=== PATIENT | male | born 1960 | race Two or more races ===

== ENCOUNTER 2020-06-27 10:31 | Inpatient (IN) | payer MEDICARE, OTHER ==
[2020-06-27] VITALS (9 sets, daily range): BP systolic 131–162; BP diastolic 79–100
[~2020-06-27] VITALS: Ht 188 cm; Wt 91.2 kg
--- NOTE | 2020-06-27 10:35 | NUR ---
ED Nurse Note: Pt brought in by ambulance from home d/t hyperglycemia with HI result. Pt is AOx4, calm and cooperative to care, appears to be generalized weak, per report, pt didn't take his insulin for 2 days. 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 Will continue to monitor.
[2020-06-27] MEDS ORDERED: Insulin Human Regular 100units/ml 3ml IV ONE (11:00)
--- NOTE | 2020-06-27 11:01 | Emergency Room Report ---
History of Present Illness General Chief Complaint: Abnormal Labs Source: Patient, EMS Present Illness HPI Patient is a 59-year-old male who presents for increased generalized weakness and diffuse body aches. Had reportedly been not taking his insulin for several days. He states that he had been feeling badly for 4 days. Reports having increased thirst. No vomiting. 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 COVID-19 Screening: Negative COVID-19 COVID-19 Testing Source: unk Patient History Past Medical History: see triage record Reviewed Nursing Documentation: PMH: Agreed; PSxH: Agreed Nursing Documentation-PMH Past Medical History: No History, Except For Hx Hypertension: Yes Hx Diabetes: Yes Review of Systems All Other Systems: negative except mentioned in HPI Physical Exam Vital Signs Date Time Temp Pulse Resp B/P (MAP) Pulse Ox O2 Delivery O2 Flow Rate FiO2 06/27/20 10:25 98.8 120 24 150/80 (103) 99 Room Air Sp02 EP Interpretation: reviewed, normal General Appearance: alert, moderate distress, obese, Chronically Ill Head: atraumatic ENT: normal ENT inspection, hearing grossly normal, normal voice Neck: normal inspection, full range of motion, supple, no bony tend Respiratory: normal inspection, lungs clear, normal breath sounds, no respiratory distress, no retraction, no wheezing Cardiovascular #1: regular rate, rhythm, no edema Gastrointestinal: normal inspection, normal bowel sounds, non tender, soft, no guarding, no hernia Genitourinary: no CVA tenderness Musculoskeletal: normal inspection, back normal, other - Left lower extremity foot ulcer Neurologic: alert, motor strength/tone normal, toy stuffer III-XII nml as tested, oriented x3, responsive, speech normal, normal inspection Psychiatric: normal inspection, judgement/insight normal, mood/affect normal Skin: other - left foot plantar ulcer Procedures Critical Care Time Critical Care Time Patient had a critical medical condition which was life threatening. Critical care time excluding separately billed procedures was 45 minutes. Medical Decision Making Diagnostic Impression: Primary Impression: DKA (diabetic ketoacidoses) Additional Impression: 2019 novel coronavirus detected ER Course Patient presented for generalized weakness and high blood sugar. Differential diagnosis included but was not limited to diabetic ketoacidosis, renal failure, electrolyte abnormality, myocardial infarction, coronavirus infection among others. Patient presented with elevated blood sugar and was reportedly noncompliant with insulin. Coronavirus testing was ordered and positive. Labs showed anion gap acidosis and significant hyperglycemia. Patient was started on IV fluids and IV insulin. He had some improvement with IV hydration. Patient was not given steroids due to hyperglycemia. Dr. Darrian Lara was contacted for inpa tient management and patient will be admitted to step down unit after improvement in acidosis. Labs Test 06/27/20 10:52 06/27/20 16:47 06/27/20 17:39 White Blood Count 9.9 K/UL (4.8-10.8) Red Blood Count 6.03 M/UL (4.70-6.10) Hemoglobin 15.8 G/DL (14.2-18.0) Hematocrit 49.3 % (42.0-52.0) Mean Corpuscular Volume 82 FL (80-99) Mean Corpuscular Hemoglobin 26.2 PG (27.0-31.0) Mean Corpuscular Hemoglobin Concent 32.0 G/DL (32.0-36.0) Red Cell Distribution Width 17.3 % (11.6-14.8) Platelet Count 293 K/UL (150-450) Mean Platelet Volume 8.1 FL (6.5-10.1) Neutrophils (%) (Auto) % (45.0-75.0) Lymphocytes (%) (Auto) % (20.0-45.0) Monocytes (%) (Auto) % (1.0-10.0) Eosinophils (%) (Auto) % (0.0-3.0) Basophils (%) (Auto) % (0.0-2.0) Differential Total Cells Counted 100 Neutrophils % (Manual) 84 % (45-75) Lymphocytes % (Manual) 9 % (20-45) Monocytes % (Manual) 7 % (1-10) Eosinophils % (Manual) 0 % (0-3) Basophils % (Manual) 0 % (0-2) Band Neutrophils 0 % (0-8) Platelet Estimate Adequate Platelet Morphology Normal Anisocytosis 1+ Total Bilirubin 0.5 MG/DL (0.2-1.0) Aspartate Amino Transf (AST/SGOT) 23 U/L (15-37) Alanine Aminotransferase (ALT/SGPT) 21 U/L (12-78) Alkaline Phosphatase 113 U/L (46-116) Troponin I 0.000 ng/mL (0.000-0.056) Total Protein 9.2 G/DL (6.4-8.2) Albumin 3.4 G/DL (3.4-5.0) Globulin 5.8 g/dL Albumin/Globulin Ratio 0.6 (1.0-2.7) Lipase 161 U/L (73-393) Thyroid Stimulating Hormone (TSH) 0.760 uiU/mL (0.358-3.740) Serum Alcohol < 3 mg/dL Acetone Level Positive-moderate (NEGATIVE) Urine Color Pale yellow Urine Appearance Slightly cloudy Urine pH 5 (4.5-8.0) Urine Specific [place] 1.015 (1.005-1.035) Urine Protein 2+ (NEGATIVE) Urine Glucose (UA) 4+ (NEGATIVE) Urine Ketones 4+ (NEGATIVE) Urine Blood 4+ (NEGATIVE) Urine Nitrite Negative (NEGATIVE) Urine Bilirubin Negative (NEGATIVE) Urine Urobilinogen Normal MG/DL (0.0-1.0) Urine Leukocyte Esterase Negative (NEGATIVE) Urine RBC 15-20 /HPF (0 - 0) Urine WBC 0-2 /HPF (0 - 0) Urine Squamous Epithelial Cells None /LPF (NONE/OCC) Urine Bacteria Moderate /HPF (NONE) Urine Coarse Granular Casts 2-4 /LPF (NONE) Sodium Level 143 MMOL/L (136-145) Potassium Level 4.0 MMOL/L (3.5-5.1) Chloride Level 106 MMOL/L (98-107) Carbon Dioxide Level 22 MMOL/L (21-32) Anion Gap 16 mmol/L (5-15) Blood Urea Nitrogen 58 mg/dL (7-18) Creatinine 2.7 MG/DL (0.55-1.30) Estimat Glomerular Filtration Rate 24.3 mL/min (>60) Glucose Level 304 MG/DL (74-106) Calcium Level 9.0 MG/DL (8.5-10.1) EKG Diagnostic Results Rate: tachycardiac Rhythm: NSR ST Segments: no acute changes Chest X-Ray Diagnostic Results Chest X-Ray Diagnostic Results : Chest X-Ray Ordered: Yes # of Views/Limited/Complete: 1 View Indication: Shortness of Breath EP Interpretation: No Impression: Other - Bilateral subsegmental atelectasis. Would also question an infectious infiltrate Last Vital Signs Date Time Temp Pulse Resp B/P (MAP) Pulse Ox O2 Delivery O2 Flow Rate FiO2 06/27/20 10:25 98.8 120 24 150/80 (103) 99 Room Air Status: improved Disposition: ADMITTED INPATIENT Condition: Critical Chan Watson MD Jun 27, 2020 11:01
--- NOTE | 2020-06-27 11:43 | NUR ---
ED Nurse Note: x-ray at bedside.
[2020-06-27 11:50] LABS: HEMATOCRIT 49.3 % (42.0-52.0); HEMOGLOBIN 15.8 G/DL (14.2-18.0); MEAN CORPUSCULAR VOLUME 82 FL (80-99); PLATELET COUNT 293 K/UL (150-450); RED BLOOD COUNT 6.03 M/UL (4.70-6.10); RED CELL DISTRIBUTION WIDTH 17.3 % (11.6-14.8); WHITE BLOOD COUNT 9.9 K/UL (4.8-10.8)
[2020-06-27 12:13] LABS: ALANINE AMINOTRANSFERASE 21 U/L (12-78); ALBUMIN 3.4 G/DL (3.4-5.0); ALBUMIN/GLOBULIN RATIO 0.6 (1.0-2.7); ALKALINE PHOSPHATASE 113 U/L (46-116); ANION GAP 29 mmol/L (5-15); ASPARTATE AMINO TRANSFERASE 23 U/L (15-37); BILIRUBIN,TOTAL 0.5 MG/DL (0.2-1.0); BLOOD UREA NITROGEN 60 mg/dL (7-18); CALCIUM 9.4 MG/DL (8.5-10.1); CARBON DIOXIDE 11 MMOL/L (21-32); CHLORIDE 94 MMOL/L (98-107); CREATININE 3.3 MG/DL (0.55-1.30); POTASSIUM 5.6 MMOL/L (3.5-5.1); SODIUM 134 MMOL/L (136-145)
[2020-06-27] MEDS ORDERED: Insulin Reg 100 units Premix 100 ML IV SCH (12:30)
[2020-06-27] MEDS ORDERED: Insulin Human Regular 100units/ml 3ml IV PRN ×2 (12:30)
[2020-06-27] MEDS: Insulin Reg 100 units Premix 100 ML IV SCH (12:38)
--- NOTE | 2020-06-27 13:28 | Diagnostic Imaging Report ---
EXAM: XR Chest, 1 View CLINICAL HISTORY: SOB TECHNIQUE: Frontal view of the chest. COMPARISON: No relevant prior studies available. FINDINGS: Lungs: Bilateral subsegmental atelectasis. Would also question an infectious infiltrate to the left mid lung. Pleural space: Unremarkable. No pneumothorax. Heart: Unremarkable. No cardiomegaly. Mediastinum: Unremarkable. Bones/joints: Degeneration of the acromioclavicular joints. IMPRESSION: Bilateral subsegmental atelectasis. Would also question an infectious infiltrate to the left mid lung.
[2020-06-27] MEDS ORDERED: Nitroglycerin Subl 0.4mg tab SL PRN (13:30)
[2020-06-27] MEDS ORDERED: Milk of Magnesia 30ml Ud ORAL PRN (13:30)
--- NOTE | 2020-06-27 13:39 | Consultation ---
Sophia Musa [employer] 06/27/20 1339: History of Present Illness General Date patient seen: Jun 27, 2020 Time patient seen: 12:50 Chief Complaint: Abnormal Labs Referring physician: Dr Lara Reason for Consultation: COVID 19 Present Illness HPI 59 years old male, with past medical history of hypertension, diabetes mellitus, presented to emergency department with generalized weakness and diffuse body aches. He was not taking insulin for few days. Patient reported symptoms for the last 4 days. He also reported increased thirst. He denied fevers or chills. He denied cough, shortness of breath or chest pain. Upon evaluation patient was afebrile, tachycardic with heart rate 120 , tachypneic with respiratory rate 24, pulse oximetry was 99% on room air. Laboratory work-up revealed no leukocytosis, stable hemoglobin , hematocrit and platelet count. Sodium 134, potassium 5.6. Anion gap 29. BUN 60, creatinine 2.3. Glucose 697. Troponin negative .EKG revealed sinus tachycardia no acute ischemic changes Stable LFT and lipase. TSH within normal limits. Serum alcohol negative. Rapid COVID-19 in ED was positive. Patient received insulin, IV fluids started on insulin drip and is currently waiting to be admitted . Pulmonology consult was requested to assist in management of this patient. PMH: DM, HTN Past surgery: left foot diabetic ulcer debridement Social hidstory: denies smoking, ETOH abuse, illicit drug use Family history: parent with diabetes Allergy: NKDA Medications: reviewed Allergies: Coded Allergies: No Known Allergies (Unverified , 06/27/20) Patient History History Provided By: Patient, Medical Record Healthcare decision maker Resuscitation status Full code Advanced Directive on File Review of Systems Constitutional: Reports: malaise, weakness Eye: Reports: no symptoms ENT: Reports: no symptoms Respiratory: Reports: no symptoms Cardiovascular: Reports: no symptoms Gastrointestinal: Reports: no symptoms Genitourinary: Reports: no symptoms Musculoskeletal: Reports: other - muscle ches Skin: Reports: other - diabetic ulcer L foot Psychiatric: Reports: no symptoms Neurological: Reports: no symptoms Endocrine: Reports: other - DM, requiring insulin Hematologic/Lymphatic: Reports: no symptoms Physical Exam General Appearance: no apparent distress, alert Lines, tubes and drains: peripheral HEENT: normocephalic, atraumatic, anicteric, mucous membranes moist Neck: non-tender, normal alignment, supple Respiratory/Chest: lungs clear, no respiratory distress, no accessory muscle use Cardiovascular/Chest: tachycardia - ST Abdomen: normal bowel sounds, non tender, soft Extremities: normal range of motion, no calf tenderness, normal capillary refill Skin Exam: other - L foot ulcer Neurologic: no motor/sensory deficits, alert, oriented x 3, responsive Musculoskeletal: normal muscle bulk Last 24 Hour Vital Signs Date Time Temp Pulse Resp B/P (MAP) Pulse Ox O2 Delivery O2 Flow Rate FiO2 06/27/20 10:45 98.8 24 150/80 99 Room Air 06/27/20 10:25 98.8 120 24 150/80 (103) 99 Room Air Laboratory Tests Test 06/27/20 10:52 White Blood Count 9.9 K/UL (4.8-10.8) Red Blood Count 6.03 M/UL (4.70-6.10) Hemoglobin 15.8 G/DL (14.2-18.0) Hematocrit 49.3 % (42.0-52.0) Mean Corpuscular Volume 82 FL (80-99) Mean Corpuscular Hemoglobin 26.2 PG (27.0-31.0) L Mean Corpuscular Hemoglobin Concent 32.0 G/DL (32.0-36.0) Red Cell Distribution Width 17.3 % (11.6-14.8) H Platelet Count 293 K/UL (150-450) Mean Platelet Volume 8.1 FL (6.5-10.1) Neutrophils (%) (Auto) % (45.0-75.0) Lymphocytes (%) (Auto) % (20.0-45.0) Monocytes (%) (Auto) % (1.0-10.0) Eosinophils (%) (Auto) % (0.0-3.0) Basophils (%) (Auto) % (0.0-2.0) Differential Total Cells Counted 100 Neutrophils % (Manual) 84 % (45-75) H Lymphocytes % (Manual) 9 % (20-45) L Monocytes % (Manual) 7 % (1-10) Eosinophils % (Manual) 0 % (0-3) Basophils % (Manual) 0 % (0-2) Band Neutrophils 0 % (0-8) Platelet Estimate Adequate Platelet Morphology Normal Anisocytosis 1+ Sodium Level 134 MMOL/L (136-145) L Potassium Level 5.6 MMOL/L (3.5-5.1) H Chloride Level 94 MMOL/L (98-107) L Carbon Dioxide Level 11 MMOL/L (21-32) L Anion Gap 29 mmol/L (5-15) H Blood Urea Nitrogen 60 mg/dL (7-18) H Creatinine 3.3 MG/DL (0.55-1.30) H Estimat Glomerular Filtration Rate 19.3 mL/min (>60) Glucose Level 697 MG/DL (74-106) *H Calcium Level 9.4 MG/DL (8.5-10.1) Total Bilirubin 0.5 MG/DL (0.2-1.0) Aspartate Amino Transf (AST/SGOT) 23 U/L (15-37) Alanine Aminotransferase (ALT/SGPT) 21 U/L (12-78) Alkaline Phosphatase 113 U/L (46-116) Troponin I 0.000 ng/mL (0.000-0.056) Total Protein 9.2 G/DL (6.4-8.2) H Albumin 3.4 G/DL (3.4-5.0) Globulin 5.8 g/dL Albumin/Globulin Ratio 0.6 (1.0-2.7) L Lipase 161 U/L (73-393) Thyroid Stimulating Hormone (TSH) 0.760 uiU/mL (0.358-3.740) Serum Alcohol < 3 mg/dL Acetone Level Positive-moderate (NEGATIVE) Microbiology Date/Time Source Procedure Growth Status 06/27/20 11:09 Nasopharynx SARS-CoV-2 RdRp Gene Assay - Final Complete Height (Feet): 6 Height (Inches): 2.00 Weight (Pounds): 220 Medications Current Medications Medications (Trade) Dose Ordered Sig/Td Route PRN Reason Start Time Stop Time Status Last Admin Dose Admin Dextrose (Dextrose 50%) 25 ml Q30M PRN IV HYPOGLYCEMIA 06/27/20 12:30 09/25/20 12:29 Dextrose (Dextrose 50%) 50 ml Q30M PRN IV HYPOGLYCEMIA 06/27/20 12:30 09/25/20 12:29 Insulin Human (Reg)/Sodium Chloride 100 ml @ 0 mls/hr Q24H IV 06/27/20 12:45 09/25/20 12:29 06/27/20 12:38 Insulin Human Regular (NovoLIN R) 5 units PRN PRN IV BS 200-299 06/27/20 12:30 09/25/20 12:29 Insulin Human Regular (NovoLIN R) 10 units PRN PRN IV BS=>300 06/27/20 12:30 09/25/20 12:29 Sodium Chloride 1,000 ml @ 999 mls/hr Q1H1M ONCE IV 06/27/20 12:30 06/27/20 13:30 06/27/20 12:39 Assessment/Plan Assessment/Plan: ASSESSMENT COVID 19 DKA Acute renal failure Hyperkalemia DM HTN PLAN OF CARE isolation Date of sx onset: 4 days ago Positive test: 06/27/20 O2 RA HFA prn DEX not indicated given on RA REM not a candidate given ARF a/c LMWH D dimer Trend CRP CXR no need for abx at this time aggressive hydration and BS management - per primary BS management with insulin gtt as per protocol , until anion gap closes hypoglycemia protocol diabetic diet and diabetic teaching HgA1c Monitor volumes and renal function Fup with consultants recs FC case discussed and evaluated by supervising physician Jules Burnett MD 06/27/202100: History of Present Illness General Chief Complaint: Abnormal Labs Present Illness Allergies: Coded Allergies: No Known Allergies (Unverified , 06/27/20) Sophia Musa NP Jun 27, 2020 13:39 Jules Burnett MD Jun 27, 2020 21:01
[2020-06-27] MEDS ORDERED: Albuterol 90mcg Inhaler 8gm INH PRN (13:45)
[2020-06-27] MEDS: Enoxaparin 100mg Inj SUBQ SCH (15:24)
[2020-06-27] MEDS: Aspirin Baby 81mg ORAL SCH (15:24)
[2020-06-27] MEDS: NovoLOG Insulin Flexpen SUBQ SCH ×2 (16:30→21:21)
--- NOTE | 2020-06-27 17:40 | NUR ---
ED Nurse Note: Redrawn blood for repeat BMP. Glucose on result was 304. Pt still on insulin drip at 4u/hr. will continue to monitor.
[2020-06-27 17:57] LABS: BILIRUBIN, URINE NEGATIVE (NEGATIVE); COLOR,URINE PALE YELLOW; GLUCOSE, URINE (UA) 4+ (NEGATIVE); KETONES,URINE 4+ (NEGATIVE); LEUKOCYTE ESTERASE ,URINE NEGATIVE (NEGATIVE); NITRITE,URINE NEGATIVE (NEGATIVE); PH,URINE 5 (4.5-8.0); PROTEIN,URINE 2+ (NEGATIVE); UROBILINOGEN,URINE NORMAL MG/DL (0.0-1.0)
[2020-06-27 18:00] LABS: CREATININE 2.7 MG/DL (0.55-1.30)
[2020-06-27 18:00] LABS: APPEARANCE,URINE SLIGHTLY CLOUDY
--- NOTE | 2020-06-27 19:00 | NUR ---
ED Nurse Note: received telephone order per dr garrett. 1. discontinue insulin drip 2. do sliding scale every 4 hours 3. administer maintenance fluid of NS 200mls/hr 4. kcl 10 mEq one time only 5. diabetic diet. 6. lantus/levemir. Ask pt first what meds does he takes at home. Noted and carried out. 6th telephone order still pending, plan of care given to BRIANNE Lima.
--- NOTE | 2020-06-27 19:11 | NUR ---
ED Nurse Note: hand off given to BRIANNE Lima for continuity of care.
--- NOTE | 2020-06-27 19:12 | NUR ---
ED Nurse Note: Received pt awake A&Ox3-4, and verbal. pt has no sob, fever, and pain at the moment. he is on room air satting 96-97%. His blod suger is 214 . pt is on a stable condition and we will keep monitoring the pt.
[2020-06-27] MEDS ORDERED: Levemir Flexpen SUBQ SCH (21:00)
[2020-06-27 21:06] LABS: CREATININE 2.6 MG/DL (0.55-1.30); POTASSIUM 4.5 MMOL/L (3.5-5.1)
--- NOTE | 2020-06-27 22:45 | NUR ---
ED Nurse Note: pt is on the bed in stable condition. No sob, fever, and pain at the moment. vitals are stable and he is sleeping.
--- NOTE | 2020-06-28 00:18 | Infectious Diseases Prog Note ---
Assessment/Plan Assessment/Plan Full consult dictated: A) covid-19 infection no hypoxia ? CAP vs atx - no fevers, ? left lung infiltrate dka, dm, htn, sophie P) no indication for covid-19 tx f/u chest x-ray monitor for hypoxia thank you Subjective Allergies: Coded Allergies: No Known Allergies (Unverified , 06/27/20) Objective Last 24 Hour Vital Signs Date Time Temp Pulse Resp B/P (MAP) Pulse Ox O2 Delivery O2 Flow Rate FiO2 06/27/20 21:41 98.8 06/27/20 17:45 98.8 110 17 141/98 100 Room Air 06/27/20 16:00 98.8 110 18 136/100 100 Room Air 06/27/20 15:00 98.8 109 19 131/97 99 Room Air 06/27/20 14:00 98.8 110 21 137/89 99 Room Air 06/27/20 13:26 98.8 113 24 162/91 99 Room Air 06/27/20 10:45 98.8 24 150/80 99 Room Air 06/27/20 10:25 98.8 120 24 150/80 (103) 99 Room Air Height (Feet): 6 Height (Inches): 2.00 Weight (Pounds): 220 Microbiology Date/Time Source Procedure Growth Status 06/27/20 11:09 Nasopharynx SARS-CoV-2 RdRp Gene Assay - Final Complete Laboratory Tests Test 06/27/20 10:52 06/27/20 16:47 06/27/20 17:39 06/27/20 20:35 White Blood Count 9.9 K/UL (4.8-10.8) Red Blood Count 6.03 M/UL (4.70-6.10) Hemoglobin 15.8 G/DL (14.2-18.0) Hematocrit 49.3 % (42.0-52.0) Mean Corpuscular Volume 82 FL (80-99) Mean Corpuscular Hemoglobin 26.2 PG (27.0-31.0) L Mean Corpuscular Hemoglobin Concent 32.0 G/DL (32.0-36.0) Red Cell Distribution Width 17.3 % (11.6-14.8) H Platelet Count 293 K/UL (150-450) Mean Platelet Volume 8.1 FL (6.5-10.1) Neutrophils (%) (Auto) % (45.0-75.0) Lymphocytes (%) (Auto) % (20.0-45.0) Monocytes (%) (Auto) % (1.0-10.0) Eosinophils (%) (Auto) % (0.0-3.0) Basophils (%) (Auto) % (0.0-2.0) Differential Total Cells Counted 100 Neutrophils % (Manual) 84 % (45-75) H Lymphocytes % (Manual) 9 % (20-45) L Monocytes % (Manual) 7 % (1-10) Eosinophils % (Manual) 0 % (0-3) Basophils % (Manual) 0 % (0-2) Band Neutrophils 0 % (0-8) Platelet Estimate Adequate Platelet Morphology Normal Anisocytosis 1+ Sodium Level 134 MMOL/L (136-145) L 143 MMOL/L (136-145) 144 MMOL/L (136-145) Potassium Level 5.6 MMOL/L (3.5-5.1) H 4.0 MMOL/L (3.5-5.1) 4.5 MMOL/L (3.5-5.1) Chloride Level 94 MMOL/L (98-107) L 106 MMOL/L (98-107) 108 MMOL/L (98-107) H Carbon Dioxide Level 11 MMOL/L (21-32) L 22 MMOL/L (21-32) 24 MMOL/L (21-32) Anion Gap 29 mmol/L (5-15) H 16 mmol/L (5-15) H 13 mmol/L (5-15) Blood Urea Nitrogen 60 mg/dL (7-18) H 58 mg/dL (7-18) H 50 mg/dL (7-18) H Creatinine 3.3 MG/DL (0.55-1.30) H 2.7 MG/DL (0.55-1.30) H 2.6 MG/DL (0.55-1.30) H Estimat Glomerular Filtration Rate 19.3 mL/min (>60) 24.3 mL/min (>60) 25.4 mL/min (>60) Glucose Level 697 MG/DL (74-106) *H 304 MG/DL (74-106) #H 242 MG/DL (74-106) H Calcium Level 9.4 MG/DL (8.5-10.1) 9.0 MG/DL (8.5-10.1) 9.0 MG/DL (8.5-10.1) Total Bilirubin 0.5 MG/DL (0.2-1.0) Aspartate Amino Transf (AST/SGOT) 23 U/L (15-37) Alanine Aminotransferase (ALT/SGPT) 21 U/L (12-78) Alkaline Phosphatase 113 U/L (46-116) Troponin I 0.000 ng/mL (0.000-0.056) Total Protein 9.2 G/DL (6.4-8.2) H Albumin 3.4 G/DL (3.4-5.0) Globulin 5.8 g/dL Albumin/Globulin Ratio 0.6 (1.0-2.7) L Lipase 161 U/L (73-393) Thyroid Stimulating Hormone (TSH) 0.760 uiU/mL (0.358-3.740) Serum Alcohol < 3 mg/dL Acetone Level Positive-moderate (NEGATIVE) Urine Color Pale yellow Urine Appearance Slightly cloudy Urine pH 5 (4.5-8.0) Urine Specific [place] 1.015 (1.005-1.035) Urine Protein 2+ (NEGATIVE) H Urine Glucose (UA) 4+ (NEGATIVE) H Urine Ketones 4+ (NEGATIVE) H Urine Blood 4+ (NEGATIVE) H Urine Nitrite Negative (NEGATIVE) Urine Bilirubin Negative (NEGATIVE) Urine Urobilinogen Normal MG/DL (0.0-1.0) Urine Leukocyte Esterase Negative (NEGATIVE) Urine RBC 15-20 /HPF (0 - 0) H Urine WBC 0-2 /HPF (0 - 0) Urine Squamous Epithelial Cells None /LPF (NONE/OCC) Urine Bacteria Moderate /HPF (NONE) H Urine Coarse Granular Casts 2-4 /LPF (NONE) H Current Medications Medications (Trade) Dose Ordered Sig/Td Route PRN Reason Start Time Stop Time Status Last Admin Dose Admin Acetaminophen (Tylenol) 650 mg Q4H PRN ORAL Mild Pain (Pain Scale 1-3) 06/27/20 13:30 07/27/20 13:29 06/27/20 21:11 Acetaminophen (Tylenol) 650 mg Q4H PRN ORAL fever 06/27/20 13:30 07/27/20 13:29 Albuterol Sulfate (Proventil MDI) 2 puff Q4H PRN INH Shortness of Breath 06/27/20 13:45 09/25/20 13:44 Aspirin (ASA) 81 mg DAILY ORAL 06/27/20 13:30 08/11/20 13:29 06/27/20 15:24 Dextrose (Dextrose 50%) 25 ml Q30M PRN IV HYPOGLYCEMIA 06/27/20 12:30 09/25/20 12:29 Dextrose (Dextrose 50%) 25 ml Q30M PRN IV Hypoglycemia 06/27/20 13:30 09/25/20 13:29 Dextrose (Dextrose 50%) 50 ml Q30M PRN IV HYPOGLYCEMIA 06/27/20 12:30 09/25/20 12:29 Dextrose (Dextrose 50%) 50 ml Q30M PRN IV Hypoglycemia 06/27/20 13:30 09/25/20 13:29 Enoxaparin Sodium (Lovenox) 100 mg Q24H SUBQ 06/27/20 14:30 09/25/20 14:29 06/27/20 15:24 Insulin Aspart (NovoLOG) BEFORE MEALS AND HS SUBQ 06/27/20 16:30 09/25/20 16:29 06/27/20 21:21 Insulin Detemir (Levemir) 25 units QHS SUBQ 06/27/20 21:00 09/25/20 20:59 06/27/20 21:22 Insulin Human (Reg)/Sodium Chloride 100 ml @ 0 mls/hr Q24H IV 06/27/20 12:45 09/25/20 12:29 06/27/20 12:38 Insulin Human Regular (NovoLIN R) 5 units PRN PRN IV BS 200-299 06/27/20 12:30 09/25/20 12:29 Insulin Human Regular (NovoLIN R) 10 units PRN PRN IV BS=>300 06/27/20 12:30 09/25/20 12:29 Magnesium Hydroxide (Mom) 30 ml HSPRN PRN ORAL Constipation 06/27/20 13:30 07/27/20 13:29 Nitroglycerin (Ntg) 0.4 mg Q5M PRN SL Prn Chest Pain 06/27/20 13:30 07/27/20 13:29 Ondansetron HCl (Zofran) 4 mg Q6H PRN IVP Nausea & Vomiting 06/27/20 13:30 07/27/20 13:29 06/27/20 21:10 Sodium Chloride 1,000 ml @ 200 mls/hr Q5H IVLG 06/27/20 14:30 07/27/20 14:29 06/27/20 20:21 Sangeetha Roger MD Jun 28, 2020 00:18
--- NOTE | 2020-06-28 00:25 | NUR ---
ED Nurse Note: pt is on the bed no sob, vitals are stable but he is complaning of pain. I asked EDMD to order him pain medication. ordered morphine 4mg
[2020-06-28] MEDS ORDERED: Morphine Sulfate 4mg/ml Inj (IV USE ONLY) ONE (00:57)
[2020-06-28] MEDS ORDERED: Morphine Sulfate 4mg/ml Inj (IV USE ONLY) IVP ONE ×2 (01:00→09:00)
[2020-06-28 01:26] VITALS: BP 141/72
--- NOTE | 2020-06-28 01:36 | NUR ---
ED Nurse Note: pt is sleeping comfortably. Vitals are stable and no sob. We will keep monitoring the pt
--- NOTE | 2020-06-28 02:29 | Consultation ---
DATE OF CONSULTATION: 06/27/2020 INFECTIOUS DISEASES CONSULTATION CONSULTING PHYSICIAN: Sangeetha Roger MD. ATTENDING PHYSICIAN: Darrian Lara MD. REFERRING PHYSICIAN: Darrian Lara MD. REASON FOR CONSULTATION: COVID-19 infection, possible community-acquired pneumonia, respiratory infection bronchitis. REASON FOR ADMISSION: DKA, elevated blood sugars, increased thirst. HISTORY OF PRESENT ILLNESS: This is a 59-year-old male who comes into [facility]. The patient was noted to have increasing thirst. The patient had high blood sugar and was in DKA. The patient also had weakness and body aches, questionable cough, upper respiratory infection. The patient's chest x-ray shows questionable infiltrate; however, this likely is atelectasis. His saturations are stable. His COVID testing by nasopharyngeal molecular testing was positive. Because of the COVID infection, Infectious diseases consultation requested. The patient currently is not hypoxic, has no fevers. The patient has had symptoms for several days. The patient is being treated for diabetic ketoacidosis. MAR was noted. Orders were noted. Notes were reviewed. Case discussed with the RN in the ER. The patient was seen in the emergency room. REVIEW OF SYSTEMS: As discussed, he had body aches, generalized fatigue, weakness, increasing thirst. He has no fever, chills, night sweats.HEAD AND NECK: No headache, neck stiffness, thrush or dysphagia. CARDIAC: No chest pain or palpitations. GASTROINTESTINAL: No nausea, vomiting, abdominal pain, or diarrhea. GENITOURINARY: No dysuria or frequency. PULMONARY: He had mild cough and congestion. No hemoptysis or secretions. SKIN: No rash. EXTREMITIES: No pain. No joint pain or leg pain. NEUROLOGIC: No seizure activity. PAST MEDICAL HISTORY: The patient's past medical history includes the following. The patient has a past medical history of hypertension and diabetes. ALLERGIES: He has no known drug allergies. No antibiotic allergies. SOCIAL HISTORY: Negative for smoking, alcohol, or drug abuse. FAMILY HISTORY: Noncontributory. Negative for tuberculosis or cancer. MEDICATIONS: Upon reviewing the MAR, the patient is on the following medications. He is on insulin, enoxaparin, albuterol, Zofran, magnesium hydroxide, acetaminophen, nitroglycerin. Outside medications were noted and reconciliated. PHYSICAL EXAMINATION: VITAL SIGNS: Temperature is 98.8, pulse rate 110, respiratory rate 17, blood pressure 141/98, saturating 100% on room air. GENERAL: He is currently in ICU. He is in COVID isolation. He is in no acute distress. No O2 requirements. Saturations are stable. Respiratory is stable. HEAD AND NECK: Oral exam, no thrush. Eye exam, no icterus. Normocephalic. Neck is supple. No JVD. HEART: Regular. No gallop or murmur. ABDOMEN: Soft. Positive bowel sounds. Nontender. LUNGS: Fairly clear bilaterally. He might have few bilateral rhonchi on exam. No rales. No respiratory distress. SKIN: No rash. MUSCULOSKELETAL: No effusion. Legs are without cellulitis. PERIPHERAL VASCULAR: No cyanosis or gangrene. GENITOURINARY: No Giles. LINE SITES: Without phlebitis. NEUROLOGIC: Intact and nonfocal. Alert and oriented. LABORATORY DATA: White count 9.9, hemoglobin 15.8. Creatinine 2.6, glucose 697. Sodium 144 , potassium was 5.6. UA has only 0 to 2 white cells, leukocyte esterase negative. COVID nasopharyngeal testing was positive by molecular testing. Chest x-ray shows atelectasis, questionable infiltrate in the left lung. ASSESSMENT AND PLAN: 1. COVID-19 infection. The patient currently does not have any hypoxia. No indication for Remdesivir or steroids. Chest x-ray with questionable left lung infiltrate; however, patient has no fevers or hypoxia. At this time, no indication for antibiotics for bacterial community-acquired pneumonia. Questionable upper respiratory infection, bronchitis; however, respiratory status is stable. At this time, no indication for Remdesivir or steroids for COVID infection. Again, no antibiotics. We will check followup chest x-ray to make sure the patient does not have any community-acquired pneumonia and monitor for hypoxia. Continue COVID isolation for COVID infection. 2. Acute kidney injury, elevated creatinine. 3. Diabetes. 4. Hypertension. 5. Diabetic ketoacidosis. 6. Anemia. 7. Diabetes and hypertension treatment per primary team. 8. Blood sugar treatment per primary team. 9. IV fluids. 10. The patient has no known drug allergies. 11. Social history is negative. 12. Family history is noncontributory. 13. MAR was noted. 14. Case discussed with RN. 15. The patient seen in ER. Sangeetha Roger M.D. DR: Lalo JOB#: [id number] CC:
--- NOTE | 2020-06-28 03:40 | NUR ---
ED Nurse Note: pt is on the bed sleeping, vitals are stable and all needs are met. we will keep monitoring the pt.
[2020-06-28] MEDS: NovoLOG Insulin Flexpen SUBQ SCH ×5 (06:25→21:06)
--- NOTE | 2020-06-28 07:16 | NUR ---
HAND-OFF: Report given to BRIANNE Joe.
[2020-06-28 08:10] VITALS: BP 174/104
--- NOTE | 2020-06-28 08:11 | NUR ---
ED Nurse Note:pt. is A/Ox1 this morning, tahycardic, no signs of distress or pain, continue to monitor till admit bed is available
--- NOTE | 2020-06-28 08:31 | NUR ---
ED Nurse Note:blood sent to labs and accucheck done
[2020-06-28] MEDS: Aspirin Baby 81mg ORAL SCH (09:07)
[2020-06-28 09:28] LABS: HEMATOCRIT 44.3 % (42.0-52.0); HEMOGLOBIN 14.6 G/DL (14.2-18.0); MEAN CORPUSCULAR VOLUME 79 FL (80-99); PLATELET COUNT 233 K/UL (150-450); RED BLOOD COUNT 5.58 M/UL (4.70-6.10); RED CELL DISTRIBUTION WIDTH 16.1 % (11.6-14.8); WHITE BLOOD COUNT 11.2 K/UL (4.8-10.8)
[2020-06-28 10:05] LABS: ALANINE AMINOTRANSFERASE 16 U/L (12-78); ALBUMIN 2.8 G/DL (3.4-5.0); ALBUMIN/GLOBULIN RATIO 0.6 (1.0-2.7); ALKALINE PHOSPHATASE 87 U/L (46-116); ANION GAP 14 mmol/L (5-15); ASPARTATE AMINO TRANSFERASE 31 U/L (15-37); BILIRUBIN,TOTAL 0.6 MG/DL (0.2-1.0); BLOOD UREA NITROGEN 40 mg/dL (7-18); CALCIUM 8.5 MG/DL (8.5-10.1); CARBON DIOXIDE 22 MMOL/L (21-32); CHLORIDE 113 MMOL/L (98-107); CREATINE KINASE 277 U/L (26-308); CREATININE 2.4 MG/DL (0.55-1.30); PHOSPHORUS 1.9 MG/DL (2.5-4.9); SODIUM 148 MMOL/L (136-145)
[2020-06-28] MEDS: Insulin Reg 100 units Premix 100 ML IV SCH (10:16)
--- NOTE | 2020-06-28 11:29 | Pulmonology Progress Note ---
Subjective Allergies: Coded Allergies: No Known Allergies (Unverified , 06/27/20) Subjective still in ED anion gap closed, s/p insulin gtt mild leukocytosis, no fevers on RA no resp distress/symptoms + tachy ST on monitor Objective Last 24 Hour Vital Signs Date Time Temp Pulse Resp B/P (MAP) Pulse Ox O2 Delivery O2 Flow Rate FiO2 06/28/20 09:38 97.9 06/28/20 08:10 97.9 118 19 174/104 95 Room Air 06/28/20 01:28 97.9 06/28/20 01:26 97.9 119 20 141/72 95 Room Air 06/27/20 23:45 98.3 112 19 136/79 96 Room Air 06/27/20 21:56 98.5 109 18 142/86 95 Room Air 06/27/20 21:41 98.8 06/27/20 19:45 98.6 115 18 136/96 96 Room Air 06/27/20 17:45 98.8 110 17 141/98 100 Room Air 06/27/20 16:00 98.8 110 18 136/100 100 Room Air 06/27/20 15:00 98.8 109 19 131/97 99 Room Air 06/27/20 14:00 98.8 110 21 137/89 99 Room Air 06/27/20 13:26 98.8 113 24 162/91 99 Room Air Objective General Appearance: no apparent distress, alert Lines, tubes and drains: peripheral HEENT: normocephalic, atraumatic, anicteric, mucous membranes moist Neck: non-tender, normal alignment, supple Respiratory/Chest: lungs clear, no respiratory distress, no accessory muscle use Cardiovascular/Chest: tachycardia - ST Abdomen: normal bowel sounds, non tender, soft Extremities: normal range of motion, no calf tenderness, normal capillary refill Skin Exam: other - L foot ulcer Neurologic: no motor/sensory deficits, alert, oriented x 3, responsive Musculoskeletal: normal muscle bulk Microbiology Date/Time Source Procedure Growth Status 06/27/20 16:47 Urine,Clean Catch Urine Culture - Preliminary NO GROWTH Resulted 06/27/20 11:09 Nasopharynx SARS-CoV-2 RdRp Gene Assay - Final Complete Laboratory Tests 06/27/20 16:47: Urine Color Pale yellow, Urine Appearance Slightly cloudy, Urine pH 5, Urine Specific [place] 1.015, Urine Protein 2+H, Urine Glucose (UA) 4+H, Urine Ketones 4+H, Urine Blood 4+H, Urine Nitrite Negative, Urine Bilirubin Negative, Urine Urobilinogen Normal, Urine Leukocyte Esterase Negative, Urine RBC 15-20H, Urine WBC 0-2, Urine Squamous Epithelial Cells None, Urine Bacteria ModerateH, Urine Coarse Granular Casts 2-4H 06/27/20 17:39: Sodium Level 143, Potassium Level 4.0, Chloride Level 106, Carbon Dioxide Level 22, Anion Gap 16H, Blood Urea Nitrogen 58H, Creatinine 2.7H, Estimat Glomerular Filtration Rate 24.3, Glucose Level 304#H, Calcium Level 9.0 06/27/20 20:35: Sodium Level 144, Potassium Level 4.5, Chloride Level 108H, Carbon Dioxide Level 24, Anion Gap 13, Blood Urea Nitrogen 50H, Creatinine 2.6H, Estimat Glomerular Filtration Rate 25.4, Glucose Level 242H, Calcium Level 9.0 06/28/20 08:20: Sodium Level 148H, Potassium Level 5.0, Chloride Level 113H, Carbon Dioxide Level 22, Anion Gap 14, Blood Urea Nitrogen 40H, Creatinine 2.4H, Estimat Glomerular Filtration Rate 27.8, Glucose Level 323H, Calcium Level 8.5, White Blood Count 11.2H, Red Blood Count 5.58, Hemoglobin 14.6, Hematocrit 44.3, Mean Corpuscular Volume 79L, Mean Corpuscular Hemoglobin 26.1L, Mean Corpuscular Hemoglobin Concent 32.8, Red Cell Distribution Width 16.1H, Platelet Count 233, Mean Platelet Volume 7.9, Neutrophils (%) (Auto) , Lymphocytes (%) (Auto) , Monocytes (%) (Auto) , Eosinophils (%) (Auto) , Basophils (%) (Auto) , Neutrophils % (Manual) [Pending], Lymphocytes % (Manual) [Pending], Platelet Estimate [Pending], Platelet Morphology [Pending], D-Dimer 0.82H, Hemoglobin A1c 10.7H, Phosphorus Level 1.9L, Magnesium Level 2.6H, Total Bilirubin 0.6, Aspartate Amino Transf (AST/SGOT) 31, Alanine Aminotransferase (ALT/SGPT) 16, Alkaline Phosphatase 87, Total Creatine Kinase 277, Troponin I 0.062H, C-Re active Protein, Quantitative [Pending], Total Protein 7.8, Albumin 2.8L, Globulin 5.0, Albumin/Globulin Ratio 0.6L, Thyroid Stimulating Hormone (TSH) 0.554 06/28/20 11:12: POC Whole Blood Glucose [Pending] Current Medications Medications (Trade) Dose Ordered Sig/Td Route PRN Reason Start Time Stop Time Status Last Admin Dose Admin Acetaminophen (Tylenol) 650 mg Q4H PRN ORAL Mild Pain (Pain Scale 1-3) 06/27/20 13:30 07/27/20 13:29 06/27/20 21:11 Acetaminophen (Tylenol) 650 mg Q4H PRN ORAL fever 06/27/20 13:30 07/27/20 13:29 Albuterol Sulfate (Proventil MDI) 2 puff Q4H PRN INH Shortness of Breath 06/27/20 13:45 09/25/20 13:44 Aspirin (ASA) 81 mg DAILY ORAL 06/27/20 13:30 08/11/20 13:29 06/28/20 09:07 Dextrose (Dextrose 50%) 25 ml Q30M PRN IV HYPOGLYCEMIA 06/27/20 12:30 09/25/20 12:29 Dextrose (Dextrose 50%) 25 ml Q30M PRN IV Hypoglycemia 06/27/20 13:30 09/25/20 13:29 Dextrose (Dextrose 50%) 50 ml Q30M PRN IV HYPOGLYCEMIA 06/27/20 12:30 09/25/20 12:29 Dextrose (Dextrose 50%) 50 ml Q30M PRN IV Hypoglycemia 06/27/20 13:30 09/25/20 13:29 Enoxaparin Sodium (Lovenox) 100 mg Q24H SUBQ 06/27/20 14:30 09/25/20 14:29 06/27/20 15:24 Insulin Aspart (NovoLOG) BEFORE MEALS AND HS SUBQ 06/27/20 16:30 09/25/20 16:29 06/28/20 06:25 Insulin Detemir (Levemir) 25 units QHS SUBQ 06/27/20 21:00 09/25/20 20:59 06/27/20 21:22 Insulin Human (Reg)/Sodium Chloride 100 ml @ 0 mls/hr Q24H IV 06/27/20 12:45 09/25/20 12:29 06/27/20 12:38 Insulin Human Regular (NovoLIN R) 5 units PRN PRN IV BS 200-299 06/27/20 12:30 09/25/20 12:29 Insulin Human Regular (NovoLIN R) 10 units PRN PRN IV BS=>300 06/27/20 12:30 09/25/20 12:29 Magnesium Hydroxide (Mom) 30 ml HSPRN PRN ORAL Constipation 06/27/20 13:30 07/27/20 13:29 Nitroglycerin (Ntg) 0.4 mg Q5M PRN SL Prn Chest Pain 06/27/20 13:30 07/27/20 13:29 Ondansetron HCl (Zofran) 4 mg Q6H PRN IVP Nausea & Vomiting 06/27/20 13:30 07/27/20 13:29 06/27/20 21:10 Sodium Chloride 1,000 ml @ 200 mls/hr Q5H IVLG 06/27/20 14:30 07/27/20 14:29 06/28/20 06:26 Assessment/Plan Assessment/Plan ASSESSMENT COVID 19 DKA Acute renal failure Hyperkalemia DM HTN Elevated troponin, likely troponin leak 2 ARF PLAN OF CARE still in ED awaiting fro tele bed isolation Date of sx onset: 4 days ago Positive test: 06/27/20 O2 RA HFA prn DEX not indicated given on RA REM not a candidate given ARF a/c LMWH D dimer Trend CRP CXR 06/27 Bilateral subsegmental atelectasis CXR this am pending no need for abx at this time aggressive hydration and BS management - per primary anion gap closed ; off insulin gtt BS management eper primary HgA1c -10.7, not at goal hypoglycemia protocol diabetic diet and diabetic teaching creat trending down, hyper K resolved 2 nd troponin mildly elevated likely troponin leak 2 to ARF monitor volumes and renal function fup with consultants recs FC case discussed and evaluated by supervising physician Sophia Musa NP Jun 28, 2020 11:29 Jules Burnett MD Jun 28, 2020 23:02
[2020-06-28 11:37] VITALS: BP 150/91
--- NOTE | 2020-06-28 12:37 | NUR ---
ED Nurse Note:called report to tele- given to BRIANNE Davidson, pt. is stable for transfer
--- NOTE | 2020-06-28 14:01 | Diagnostic Imaging Report ---
Indication: Cough Technique: One view of the chest Comparison: 06/27/2020 Findings: Optimal exam currently; current exam also less heavily exposed. There are increased streaky peribronchovascular infiltrates in the left lung. There are also some atelectatic bands in the left midlung periphery which were evident previously. There are questionably streaky infiltrates in the right lung, as well as some atelectasis. This is probably unchanged allowing for differences in degree of inspiration and exposure technique Impression: Increasing left peripheral infiltrates, likely reflects increasing pneumonia. There are questionably minimal infiltrates on the right as well as some atelectasis
[2020-06-28 16:00] VITALS: BP 174/96
[2020-06-28] MEDS: Enoxaparin 100mg Inj SUBQ SCH (16:51)
--- NOTE | 2020-06-28 17:00 | History and Physical Report ---
DATE OF ADMISSION: 06/27/2020 CHIEF COMPLAINT AND REASON FOR HOSPITALIZATION: The patient admitted with diabetic ketoacidosis and positive tests for COVID-19. HISTORY OF PRESENT ILLNESS: The patient is a poor historian. On my exam, he is very drowsy and cannot give any articulate history and he has been this way all day. He presented with diabetic ketoacidosis and apparently has not been taking his insulin for several days and feeling weak. The test for COVID-19 was verbally reported as positive over the phone last night and his chest x-ray on admission showed bilateral subsegmental atelectasis, would also question infectious infiltrate in the left middle lung. I am unable to get any further past medical history. He was given large amount of fluids, insulin drip in the emergency room and his sugars improved as did his acidosis and now he is transferred to the telemetry floor. Prior to admission medications are unavailable at this time. PHYSICAL EXAMINATION: GENERAL: The patient is lying in bed, supine. VITAL SIGNS: O2 saturation 96% on room air, temperature 97.9, pulse 118, respiratory rate 19, blood pressure 150/91. HEAD, EYES, EARS, NOSE, THROAT: Oral mucosa slightly dry. Sclerae are nonicteric. NECK: No adenopathy. LUNGS: Clear. HEART: Rhythm is regular and tachycardic. ABDOMEN: Soft without organomegaly. EXTREMITIES: No edema. NEUROLOGIC: He is arousable but confused, disoriented. No apparent focal weakness. PERTINENT LABORATORY DATA: On admission white count 9.9, hemoglobin 15.8. Sodium 134, potassium 5.6, chloride 94, CO2 of 11, BUN 60, creatinine 3.3, glucose 697. . The most recent chemistry shows sodium 148, potassium 5, BUN 40, creatinine 2.4, glucose 323. Hemoglobin A1c 10.7. Phosphorus low at 1.9. Troponin 0.062. IMPRESSION: 1. Diabetic ketoacidosis, improving 2. Dehydration. 3. COVID-19 pneumonia. 4. Elevated troponin, likely demand ischemia. 5. Incomplete database. PLAN: Hydration. Diabetic management. We will give him anti-ischemic therapy. Watch his electrolytes closely. I think at this time, he can be started on dexamethasone and watch closely. Darrian Lara M.D. DR: Javy JOB#: [id number] CC:
--- NOTE | 2020-06-28 17:19 | NUR ---
NURSE NOTES: sliding scale insulin given, held additional insulin because pt refused to eat.
--- NOTE | 2020-06-28 19:00 | NUR ---
NURSE NOTES: received report from Vladimir DECKER. Pt is sleeping in bed in semi- alonso's position. Pt is alert oriented x3, no SOB noted, o2 sat 94%. No any pain noted. Pt Right AC g20, patient flushed running 150ml/hr NS in No bleeding or erythema noted. Pt is noted to have diabetic ulcers on bottom of left foot and on medial right 1st toe. Continue to plan of care, call light within reach.
[2020-06-28 20:00] VITALS: BP 136/93
--- NOTE | 2020-06-28 20:25 | NUR ---
NURSE HAND-OFF REPORT: Important Events on Shift:[] pt is hypertensive, dr is aware. pt refused to eat so insulin is med. Patient Status: [] full code Diet: [] regular Pending Orders: [] Pending Results/Labs:[] Pending MD notification:[] Latest Vital Signs: Temperature 99.4 , Pulse 131 , B/P 174 /96 , Respiratory Rate 22 , O2 SAT 99 , Room Air, O2 Flow Rate . Vital Sign Comment: [] EKG Rhythm: Sinus Tachycardia Rhythm change?: N MD Notified?: - MD Response: Latest Estrada Fall Score: 55 Fall Risk: High Risk Safety Measures: Call light Within Reach, Bed Alarm Zone 1, Side Rails Side Rails x2, Bed position Low and Locked. Fall Precautions: Yellow Socks Yellow Gown Door Sign Patient Fall Education Report given to [].luis DECKER
[2020-06-28] MEDS ORDERED: Levemir Flexpen SUBQ SCH (21:00)
[2020-06-29] VITALS: BP 130/89
[2020-06-29 04:00] VITALS: BP 134/92
[2020-06-29] MEDS: NovoLOG Insulin Flexpen SUBQ SCH ×7 (06:24→22:11)
--- NOTE | 2020-06-29 06:29 | Consultation ---
DATE OF CONSULTATION: 06/28/2020 CARDIOLOGY CONSULTATION REQUESTING PHYSICIAN: Darrian Lara M.D. REASON FOR CONSULTATION: Elevated troponin level in the setting of COVID-19 pneumonia. HISTORY OF PRESENT ILLNESS: This 59-year-old male presented to the hospital yesterday with DKA and lethargy. He has been weak for several days and not taking his insulin. He has had a positive COVID-19 swab reported. I have been asked to assess his cardiovascular status addressing an elevated troponin level. PAST MEDICAL HISTORY: Insulin-requiring diabetes mellitus. MEDICATIONS: None known. FAMILY HISTORY: Not obtainable. SOCIAL HISTORY: Not known at this time. PHYSICAL EXAMINATION: VITAL SIGNS: Afebrile. Blood pressure 140/79, heart rate 118, respiratory rate 22, and oxygen saturation 96%. NECK: Supple. Mucous membranes dry. LUNGS: Clear. CARDIAC: Regular. Normal S1, S2 with rapid heart rate. No murmur. ABDOMEN: Soft. EXTREMITIES: No edema. LABORATORY DATA: Troponin 0.062. Sodium 134, potassium 5.6, BUN 40, creatinine 2.4, and bicarb 11. Chest x-ray with bilateral infiltrates. EKG with sinus tachycardia and nonspecific ST changes. ASSESSMENT: 1. COVID-19 pneumonia. 2. Hypovolemia. 3. Dehydration. 4. Acute coronary insufficiency and likely demand ischemia. 5. Diabetic ketoacidosis. PLAN: 1. Hydration. 2. Insulin titration by IV route. 3. Anticoagulation and steroid therapies. 4. Follow up troponin level. 5. Consider initiation of beta-abiola once metabolically stabilized. Echocardiogram to be checked as well. 6. Antiplatelet therapy with low-dose aspirin if no bleeding risk over the next 24 hours. West Rodriguez M.D. DR: Jack JOB#: [id number] CC:
[2020-06-29 08:00] VITALS: BP 129/68
[2020-06-29 08:15] LABS: CALCIUM 9.3 MG/DL (8.5-10.1); CREATININE 2.3 MG/DL (0.55-1.30); PHOSPHORUS 1.8 MG/DL (2.5-4.9); POTASSIUM 3.9 MMOL/L (3.5-5.1)
--- NOTE | 2020-06-29 08:20 | NUR ---
NURSE HAND-OFF REPORT: Important Events on Shift: Wound care performed on feet Patient Status: Sleeping at this time Diet: CCHO low Pending Orders: Pending Results/Labs: Am labs Pending MD notification: Latest Vital Signs: Temperature 98.9 , Pulse 111 , B/P 134 /92 , Respiratory Rate 20 , O2 SAT 96 , Room Air, O2 Flow Rate . Vital Sign Comment: EKG Rhythm: Sinus Tachycardia Rhythm change?: N MD Notified?: - MD Response: Latest Estrada Fall Score: 55 Fall Risk: High Risk Safety Measures: Call light Within Reach, Bed Alarm Zone 2, Side Rails Side Rails x2, Bed position Low and Locked. Fall Precautions: Yellow Socks Yellow Gown Door Sign Patient Fall Education Report given to Vladimir DECKER .
--- NOTE | 2020-06-29 08:31 | NUR ---
NURSE NOTES: pt is in bed and asleep/lethargic. IV is in patent and intact, bed is locked in lowest position, call light within reach. pt is refusing breakfast, even when encouraged to eat. 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
--- NOTE | 2020-06-29 08:57 | Pulmonology Progress Note ---
Subjective Allergies: Coded Allergies: No Known Allergies (Unverified , 06/27/20) Subjective tele remains on RA isolation no CP, no SOB no fevers Objective Last 24 Hour Vital Signs Date Time Temp Pulse Resp B/P (MAP) Pulse Ox O2 Delivery O2 Flow Rate FiO2 06/29/20 04:00 98.9 111 20 134/92 (106) 96 06/29/20 04:00 119 06/29/20 00:00 98.1 110 20 130/89 (103) 94 06/29/20 00:00 122 06/28/20 21:00 Room Air 06/28/20 20:00 98.6 115 20 136/93 (107) 96 06/28/20 20:00 134 06/28/20 16:00 131 06/28/20 16:00 99.4 136 22 174/96 (122) 99 06/28/20 15:06 Room Air 06/28/20 13:46 122 06/28/20 12:34 97.9 118 19 150/91 96 Room Air 06/28/20 11:37 118 19 150/91 96 Room Air 06/28/20 09:38 97.9 Intake and Output 06/28/20 06/29/20 19:00 07:00 Intake Total 0 ml 200 ml Balance 0 ml 200 ml Intake Oral 0 ml 200 ml # Voids 2 Objective General Appearance: no apparent distress, alert Lines, tubes and drains: peripheral HEENT: normocephalic, atraumatic, anicteric, mucous membranes moist Neck: non-tender, normal alignment, supple Respiratory/Chest: lungs clear, no respiratory distress, no accessory muscle use Cardiovascular/Chest: tachycardia - ST Abdomen: normal bowel sounds, non tender, soft Extremities: normal range of motion, no calf tenderness, normal capillary refill Skin Exam: other - L foot ulcer Neurologic: no motor/sensory deficits, alert, oriented x 3, responsive Musculoskeletal: normal muscle bulk Microbiology Date/Time Source Procedure Growth Status 06/28/20 21:08 Nasal Nares Right - Final Complete 06/28/20 21:08 Nasal Nares Right - Final Complete 06/27/20 16:47 Urine,Clean Catch Urine Culture - Final Mixed Gram Positive Organism Complete 06/27/20 11:09 Nasopharynx SARS-CoV-2 RdRp Gene Assay - Final Complete Laboratory Tests 06/28/20 11:12: POC Whole Blood Glucose [Pending] 06/28/20 20:48: POC Whole Blood Glucose 234H 06/29/20 07:24: Sodium Level 158#H, Potassium Level 3.9, Chloride Level 122H, Carbon Dioxide Level 24, Anion Gap 12, Blood Urea Nitrogen 29H, Creatinine 2.3H, Estimat Glomerular Filtration Rate 29.2, Glucose Level 271H, Calcium Level 9.3, Phosphorus Level 1.8L, Magnesium Level 2.8H, Troponin I 0.192H, Pro-B-Type Natriuretic Peptide 625H Current Medications Medications (Trade) Dose Ordered Sig/Td Route PRN Reason Start Time Stop Time Status Last Admin Dose Admin Acetaminophen (Tylenol) 650 mg Q4H PRN ORAL Mild Pain (Pain Scale 1-3) 06/27/20 13:30 07/27/20 13:29 06/27/20 21:11 Acetaminophen (Tylenol) 650 mg Q4H PRN ORAL fever 06/27/20 13:30 07/27/20 13:29 Albuterol Sulfate (Proventil MDI) 2 puff Q4H PRN INH Shortness of Breath 06/27/20 13:45 09/25/20 13:44 Aspirin (ASA) 81 mg DAILY ORAL 06/27/20 13:30 08/11/20 13:29 06/28/20 09:07 Dextrose (Dextrose 50%) 25 ml Q30M PRN IV Hypoglycemia 06/27/20 13:30 09/25/20 13:29 Dextrose (Dextrose 50%) 50 ml Q30M PRN IV Hypoglycemia 06/27/20 13:30 09/25/20 13:29 Enoxaparin Sodium (Lovenox) 100 mg Q24H SUBQ 06/27/20 14:30 09/25/20 14:29 06/28/20 16:51 Insulin Aspart (NovoLOG) BEFORE MEALS AND HS SUBQ 06/27/20 16:30 09/25/20 16:29 06/29/20 06:24 Insulin Aspart (NovoLOG) 6 units NOVOTIAC SUBQ 06/28/20 16:50 09/26/20 16:49 06/29/20 06:25 Insulin Detemir (Levemir) 35 units QHS SUBQ 06/28/20 21:00 09/26/20 20:59 06/28/20 21:05 Magnesium Hydroxide (Mom) 30 ml HSPRN PRN ORAL Constipation 06/27/20 13:30 07/27/20 13:29 Nitroglycerin (Ntg) 0.4 mg Q5M PRN SL Prn Chest Pain 06/27/20 13:30 07/27/20 13:29 Ondansetron HCl (Zofran) 4 mg Q6H PRN IVP Nausea & Vomiting 06/27/20 13:30 07/27/20 13:29 06/27/20 21:10 Sodium Chloride 1,000 ml @ 150 mls/hr Q6H40M IVLG 06/27/20 14:30 07/27/20 14:29 06/29/20 03:53 Assessment/Plan Assessment/Plan ASSESSMENT COVID 19 DKA Acute renal failure Hyperkalemia DM HTN Elevated troponin, likely troponin leak 2 ARF PLAN OF CARE tele isolation Date of sx onset: 4 days ago prior to ED presentation Positive test: 06/27/20 O2 RA HFA prn DEX not indicated given on RA REM not a candidate given ARF a/c LMWH D dimer Trend CRP 62.3- CXR 06/27 Bilateral subsegmental atelectasis CXR 06/28 : Increasing left peripheral infiltrates, likely reflects increasing pneumonia. abx per ID recs - currently off abx aggressive hydration and BS management - per primary anion gap closed ; off insulin gtt BS management per primary HgA1c -10.7, not at goal hypoglycemia protocol diabetic diet and diabetic teaching creat trending down, hyper K resolved 2 nd troponin mildly elevated likely troponin leak 2 to ARF cardio follows monitor volumes and renal function fup with consultants recs FC case discussed and evaluated by supervising physician Sophia Musa NP Jun 29, 2020 08:57
[2020-06-29] MEDS: 1/2NS w/KCl 20mEq 1000ml 1,000 ML IV SCH ×3 (10:19→22:03)
[2020-06-29] MEDS: Aspirin Baby 81mg ORAL SCH (10:19)
--- NOTE | 2020-06-29 11:10 | NUR ---
REFERENCE LIBRARIAN NOTE SW received a consult to locate the family. HAILEY spoke w/ Mirna, pt's sister [phone] and obtained information. Pt reside w/ sister at [address] [place] [address]. Pt is ambulatory and independent w/ ADLs. Mirna reports pt administers insulin by himself and she does not know the reason why pt missed administrating insulin. Pt currently receives home health for wounds: Matty ( nurse) [phone]
--- NOTE | 2020-06-29 11:13 | NUR ---
HOME HEALTH NURSE WILL [phone]
[2020-06-29 12:00] VITALS: BP 131/81
--- NOTE | 2020-06-29 12:09 | NUR ---
CASE MANAGEMENT:REVIEW 59 YR OLD MALE BIBA FROM HOME CC: ABNORMAL LABS SI: DKA. COVID POSITIVE 98.7 120 24 150/80 99% ON RA GLUCOSE+697 K+5.6 BUN+60 CR+3.3 IS: INSULIN GTT 1L NS BOLUS IV KCL IV MORPHINE IV PEPCID CHEST XRAY : TO TELEMETRY
--- NOTE | 2020-06-29 13:18 | NUR ---
NURSE NOTES: standing order for insulin was held because pt is not eating. encouraged pt to eat and tried to feed but pt is lethargic.
[2020-06-29] MEDS: Enoxaparin 100mg Inj SUBQ SCH (14:47)
[2020-06-29 16:00] VITALS: BP 137/77
[2020-06-29 16:15] LABS: BLOOD UREA NITROGEN 28 mg/dL (7-18); CARBON DIOXIDE 27 MMOL/L (21-32); CHLORIDE 124 MMOL/L (98-107); CREATININE 2.3 MG/DL (0.55-1.30); POTASSIUM 3.9 MMOL/L (3.5-5.1); SODIUM 160 MMOL/L (136-145)
--- NOTE | 2020-06-29 16:30 | NUR ---
NURSE NOTES: pt is having trouble eating and drinking. notified Dr. Lara. ST evaluation and pureed thick diet recommended. will follow up with ST evaluation before giving pt food
--- NOTE | 2020-06-29 16:56 | NUR ---
Speech Pathology Note (Bedside Dysphagia Evaluation) Brief Note: Mr. Saunders is a 59 year old male presents signs of diabetic ketoacidosis consists with positive COVID 19 admitted [facility] ICU from home on 06/27/2019. Pt was noted hypokalemia 5.6, elevated BUN/Creatine 60/3.3, with hyperglycemia 697. Today, he is on telemetry unit, labs were remarkable for Na160, BUN/Creatine 28/2.3, and glucose is 213. The leukocytosis 11k from baseline 9.9k. Troponin is slightly elevated 0.192. The available inflammatory marker is slightly elevated. Today, patient became more lethargic and Po intake declined. Swallow evaluation was ordered due to risk of aspiration. Findings at his bedside: Mr. Saunders is lethargic, but able to get his attention by calling his name. However he was unable to maintain his attention to this clinician. He was oriented x 1 at this time. His speech was slightly dysarthric with ataxic. His voice is intact. Given him sip of soda, he accepted and tolerated one sip without s.s of aspiration. After this, he refused to take PO by stating " I can't", but he was unable to explain why. I discussed with nursing staff about my impression and recommendation. Interpretation: 1. Reduced level of alertness and refusal to take PO 2. Aspiration, poor Po risk Plan: 1. Continue with current diet for now, if he is too lethargic or refuse to eat not force to feed 2. RD consultation for supplemental for poor PO with DKA Speech/Dysphagia follow up on 05/29/2021. Daryn Quinones
[2020-06-29] MEDS ORDERED: Varibar Thin Liquid powder 148gm MC PRN (17:00)
[2020-06-29] MEDS ORDERED: Varibar Nectar 240ml MC PRN (17:00)
[2020-06-29] MEDS ORDERED: Varibar Honey 250ml MC PRN (17:00)
[2020-06-29] MEDS ORDERED: Varibar Pudding 230ml MC PRN (17:00)
--- NOTE | 2020-06-29 17:28 | Infectious Diseases Prog Note ---
Assessment/Plan Assessment/Plan ASSESSMENT AND PLAN: 1. covid-19 infection with pna, less likely CAP, no hypoxia or fevers, mild leukocytosis left heel and toes with wounds per RN - will review pictures to be taken, currently wounds covered - no indication for covid-19 treatment - pneumonia/infiltrates on chest x-ray likely covid related - hold off on anti-bacterials for now - d/w Sophia Musa, [employer] for pulmonary medicine - monitor for hypoxia and labs and chest x-ray as indicated 2. Acute kidney injury, elevated creatinine. 3. Diabetes. 4. Hypertension. 5. Diabetic ketoacidosis. 6. Anemia. 7. Diabetes and hypertension treatment per primary team. 8. Blood sugar treatment per primary team. 9. IV fluids. 10. The patient has no known drug allergies. 11. Social history is negative. 12. Family history is noncontributory. 13. MAR was noted. 14. Case discussed with RN. 15. The patient seen in ER. Subjective Constitutional: Reports: fatigue, other - saturations stable ; Denies: fever HEENT: Denies: congestion Respiratory: Denies: shortness of breath Cardiovascular: Denies: chest pain Gastrointestinal/Abdominal: Denies: nausea, vomiting, diarrhea Genitourinary: Denies: dysuria, hematuria, frequency Neurologic: Denies: headache Psychiatric: Reports: other - NA Skin: Denies: rash Hematologic: Denies: bleeding Musculoskeletal: Reports: other - NA Allergies: Coded Allergies: No Known Allergies (Unverified , 06/27/20) Objective Last 24 Hour Vital Signs Date Time Temp Pulse Resp B/P (MAP) Pulse Ox O2 Delivery O2 Flow Rate FiO2 06/29/20 09:00 Room Air 06/29/20 08:00 97.8 83 19 129/68 (88) 97 06/29/20 08:00 118 06/29/20 04:00 98.9 111 20 134/92 (106) 96 06/29/20 04:00 119 06/29/20 00:00 98.1 110 20 130/89 (103) 94 06/29/20 00:00 122 06/28/20 21:00 Room Air 06/28/20 20:00 98.6 115 20 136/93 (107) 96 06/28/20 20:00 134 Height (Feet): 6 Height (Inches): 2.00 Weight (Pounds): 201 General Appearance: no acute distress HEENT: normocephalic, atraumatic, anicteric, mucous membranes moist Respiratory/Chest: crackles/rales, rhonchi - bilaterally Cardiovascular: normal rate, regular rhythm, no gallop/murmur Abdomen: normal bowel sounds, soft, non tender, no organomegaly, non distended Genitourinary: other - no ashraf Extremities: no cyanosis Skin: no rash, other - left heel and toe with wounds per RN - currenly wounds covered Neurologic/Psychiatric: crowning inspector II-XII grossly normal, alert, responsive Lymphatic: no neck adenopathy Musculoskeletal: no effusion Chest x-ray - 06/28/20 - Procedure: XRAY Chest 1v Indication: Cough Technique: One view of the chest Comparison: 06/27/2020 Findings: Optimal exam currently; current exam also less heavily exposed. There are increased streaky peribronchovascular infiltrates in the left lung. There are also some atelectatic bands in the left midlung periphery which were evident previously. There are questionably streaky infiltrates in the right lung, as well as some atelectasis. This is probably unchanged allowing for differences in degree of inspiration and exposure technique Impression: Increasing left peripheral infiltrates, likely reflects increasing pneumonia. There are questionably minimal infiltrates on the right as well as some atelectasis Microbiology Date/Time Source Procedure Growth Status 06/28/20 21:08 Nasal Nares Right - Final Complete 06/28/20 21:08 Nasal Nares Right - Final Complete 06/27/20 16:47 Urine,Clean Catch Urine Culture - Final Mixed Gram Positive Organism Complete 06/27/20 11:09 Nasopharynx SARS-CoV-2 RdRp Gene Assay - Final Complete Labs Test 06/27/20 10:52 06/27/20 16:47 06/27/20 17:39 06/27/20 20:35 White Blood Count 9.9 K/UL (4.8-10.8) Red Blood Count 6.03 M/UL (4.70-6.10) Hemoglobin 15.8 G/DL (14.2-18.0) Hematocrit 49.3 % (42.0-52.0) Mean Corpuscular Volume 82 FL (80-99) Mean Corpuscular Hemoglobin 26.2 PG (27.0-31.0) Mean Corpuscular Hemoglobin Concent 32.0 G/DL (32.0-36.0) Red Cell Distribution Width 17.3 % (11.6-14.8) Platelet Count 293 K/UL (150-450) Mean Platelet Volume 8.1 FL (6.5-10.1) Neutrophils (%) (Auto) % (45.0-75.0) Lymphocytes (%) (Auto) % (20.0-45.0) Monocytes (%) (Auto) % (1.0-10.0) Eosinophils (%) (Auto) % (0.0-3.0) Basophils (%) (Auto) % (0.0-2.0) Differential Total Cells Counted 100 Neutrophils % (Manual) 84 % (45-75) Lymphocytes % (Manual) 9 % (20-45) Monocytes % (Manual) 7 % (1-10) Eosinophils % (Manual) 0 % (0-3) Basophils % (Manual) 0 % (0-2) Band Neutrophils 0 % (0-8) Platelet Estimate Adequate Platelet Morphology Normal Anisocytosis 1+ Sodium Level 134 MMOL/L (136-145) 143 MMOL/L (136-145) 144 MMOL/L (136-145) Potassium Level 5.6 MMOL/L (3.5-5.1) 4.0 MMOL/L (3.5-5.1) 4.5 MMOL/L (3.5-5.1) Chloride Level 94 MMOL/L (98-107) 106 MMOL/L (98-107) 108 MMOL/L (98-107) Carbon Dioxide Level 11 MMOL/L (21-32) 22 MMOL/L (21-32) 24 MMOL/L (21-32) Anion Gap 29 mmol/L (5-15) 16 mmol/L (5-15) 13 mmol/L (5-15) Blood Urea Nitrogen 60 mg/dL (7-18) 58 mg/dL (7-18) 50 mg/dL (7-18) Creatinine 3.3 MG/DL (0.55-1.30) 2.7 MG/DL (0.55-1.30) 2.6 MG/DL (0.55-1.30) Estimat Glomerular Filtration Rate 19.3 mL/min (>60) 24.3 mL/min (>60) 25.4 mL/min (>60) Glucose Level 697 MG/DL (74-106) 304 MG/DL (74-106) 242 MG/DL (74-106) Calcium Level 9.4 MG/DL (8.5-10.1) 9.0 MG/DL (8.5-10.1) 9.0 MG/DL (8.5-10.1) Total Bilirubin 0.5 MG/DL (0.2-1.0) Aspartate Amino Transf (AST/SGOT) 23 U/L (15-37) Alanine Aminotransferase (ALT/SGPT) 21 U/L (12-78) Alkaline Phosphatase 113 U/L (46-116) Troponin I 0.000 ng/mL (0.000-0.056) Total Protein 9.2 G/DL (6.4-8.2) Albumin 3.4 G/DL (3.4-5.0) Globulin 5.8 g/dL Albumin/Globulin Ratio 0.6 (1.0-2.7) Lipase 161 U/L (73-393) Thyroid Stimulating Hormone (TSH) 0.760 uiU/mL (0.358-3.740) Serum Alcohol < 3 mg/dL Acetone Level Positive-moderate (NEGATIVE) Urine Color Pale yellow Urine Appearance Slightly cloudy Urine pH 5 (4.5-8.0) Urine Specific [place] 1.015 (1.005-1.035) Urine Protein 2+ (NEGATIVE) Urine Glucose (UA) 4+ (NEGATIVE) Urine Ketones 4+ (NEGATIVE) Urine Blood 4+ (NEGATIVE) Urine Nitrite Negative (NEGATIVE) Urine Bilirubin Negative (NEGATIVE) Urine Urobilinogen Normal MG/DL (0.0-1.0) Urine Leukocyte Esterase Negative (NEGATIVE) Urine RBC 15-20 /HPF (0 - 0) Urine WBC 0-2 /HPF (0 - 0) Urine Squamous Epithelial Cells None /LPF (NONE/OCC) Urine Bacteria Moderate /HPF (NONE) Urine Coarse Granular Casts 2-4 /LPF (NONE) Test 06/28/20 08:20 06/28/20 11:12 06/28/20 20:48 06/29/20 07:24 White Blood Count 11.2 K/UL (4.8-10.8) Red Blood Count 5.58 M/UL (4.70-6.10) Hemoglobin 14.6 G/DL (14.2-18.0) Hematocrit 44.3 % (42.0-52.0) Mean Corpuscular Volume 79 FL (80-99) Mean Corpuscular Hemoglobin 26.1 PG (27.0-31.0) Mean Corpuscular Hemoglobin Concent 32.8 G/DL (32.0-36.0) Red Cell Distribution Width 16.1 % (11.6-14.8) Platelet Count 233 K/UL (150-450) Mean Platelet Volume 7.9 FL (6.5-10.1) Neutrophils (%) (Auto) % (45.0-75.0) Lymphocytes (%) (Auto) % (20.0-45.0) Monocytes (%) (Auto) % (1.0-10.0) Eosinophils (%) (Auto) % (0.0-3.0) Basophils (%) (Auto) % (0.0-2.0) Differential Total Cells Counted 100 Neutrophils % (Manual) 88 % (45-75) Lymphocytes % (Manual) 4 % (20-45) Monocytes % (Manual) 8 % (1-10) Eosinophils % (Manual) 0 % (0-3) Basophils % (Manual) 0 % (0-2) Band Neutrophils 0 % (0-8) Platelet Estimate Adequate Platelet Morphology Normal Anisocytosis 1+ D-Dimer 0.82 mg/L FEU (0.00-0.49) Sodium Level 148 MMOL/L (136-145) 158 MMOL/L (136-145) Potassium Level 5.0 MMOL/L (3.5-5.1) 3.9 MMOL/L (3.5-5.1) Chloride Level 113 MMOL/L (98-107) 122 MMOL/L (98-107) Carbon Dioxide Level 22 MMOL/L (21-32) 24 MMOL/L (21-32) Anion Gap 14 mmol/L (5-15) 12 mmol/L (5-15) Blood Urea Nitrogen 40 mg/dL (7-18) 29 mg/dL (7-18) Creatinine 2.4 MG/DL (0.55-1.30) 2.3 MG/DL (0.55-1.30) Estimat Glomerular Filtration Rate 27.8 mL/min (>60) 29.2 mL/min (>60) Glucose Level 323 MG/DL (74-106) 271 MG/DL (74-106) Hemoglobin A1c 10.7 % (4.3-6.0) Calcium Level 8.5 MG/DL (8.5-10.1) 9.3 MG/DL (8.5-10.1) Phosphorus Level 1.9 MG/DL (2.5-4.9) 1.8 MG/DL (2.5-4.9) Magnesium Level 2.6 MG/DL (1.8-2.4) 2.8 MG/DL (1.8-2.4) Total Bilirubin 0.6 MG/DL (0.2-1.0) Aspartate Amino Transf (AST/SGOT) 31 U/L (15-37) Alanine Aminotransferase (ALT/SGPT) 16 U/L (12-78) Alkaline Phosphatase 87 U/L (46-116) Total Creatine Kinase 277 U/L (26-308) Troponin I 0.062 ng/mL (0.000-0.056) 0.192 ng/mL (0.000-0.056) C-Reactive Protein, Quantitative 62.6 mg/L (<5) Total Protein 7.8 G/DL (6.4-8.2) Albumin 2.8 G/DL (3.4-5.0) Globulin 5.0 g/dL Albumin/Globulin Ratio 0.6 (1.0-2.7) Thyroid Stimulating Hormone (TSH) 0.554 uiU/mL (0.358-3.740) POC Whole Blood Glucose 234 MG/DL (74-106) Pro-B-Type Natriuretic Peptide 625 pg/mL (0-125) Test 06/29/20 15:30 Sodium Level 160 MMOL/L (136-145) Potassium Level 3.9 MMOL/L (3.5-5.1) Chloride Level 124 MMOL/L (98-107) Carbon Dioxide Level 27 MMOL/L (21-32) Blood Urea Nitrogen 28 mg/dL (7-18) Creatinine 2.3 MG/DL (0.55-1.30) Estimat Glomerular Filtration Rate 29.2 mL/min (>60) Glucose Level 213 MG/DL (74-106) Calcium Level 9.0 MG/DL (8.5-10.1) Laboratory Tests Test 06/28/20 20:48 06/29/20 07:24 06/29/20 15:30 POC Whole Blood Glucose 234 MG/DL (74-106) H Sodium Level 158 MMOL/L (136-145) #H 160 MMOL/L (136-145) H Potassium Level 3.9 MMOL/L (3.5-5.1) 3.9 MMOL/L (3.5-5.1) Chloride Level 122 MMOL/L (98-107) H 124 MMOL/L (98-107) H Carbon Dioxide Level 24 MMOL/L (21-32) 27 MMOL/L (21-32) Anion Gap 12 mmol/L (5-15) Blood Urea Nitrogen 29 mg/dL (7-18) H 28 mg/dL (7-18) H Creatinine 2.3 MG/DL (0.55-1.30) H 2.3 MG/DL (0.55-1.30) H Estimat Glomerular Filtration Rate 29.2 mL/min (>60) 29.2 mL/min (>60) Glucose Level 271 MG/DL (74-106) H 213 MG/DL (74-106) H Calcium Level 9.3 MG/DL (8.5-10.1) 9.0 MG/DL (8.5-10.1) Phosphorus Level 1.8 MG/DL (2.5-4.9) L Magnesium Level 2.8 MG/DL (1.8-2.4) H Troponin I 0.192 ng/mL (0.000-0.056) Pro-B-Type Natriuretic Peptide 625 pg/mL (0-125) H Current Medications Medications (Trade) Dose Ordered Sig/Td Route PRN Reason Start Time Stop Time Status Last Admin Dose Admin Acetaminophen (Tylenol) 650 mg Q4H PRN ORAL Mild Pain (Pain Scale 1-3) 06/27/20 13:30 07/27/20 13:29 06/27/20 21:11 Acetaminophen (Tylenol) 650 mg Q4H PRN ORAL fever 06/27/20 13:30 07/27/20 13:29 Albuterol Sulfate (Proventil MDI) 2 puff Q4H PRN INH Shortness of Breath 06/27/20 13:45 09/25/20 13:44 Aspirin (ASA) 81 mg DAILY ORAL 06/27/20 13:30 08/11/20 13:29 06/29/20 10:19 Barium Sulfate (Varibar Honey) 250 ml NOW PRN MC RAD 06/29/20 17:00 07/02/20 16:45 Barium Sulfate (Varibar [place]) 240 ml NOW PRN MC RAD 06/29/20 17:00 07/02/20 16:45 Barium Sulfate (Varibar Pudding) 230 ml NOW PRN MC RAD 06/29/20 17:00 07/02/20 16:45 Barium Sulfate (Varibar Thin Liquid powder) 148 gm NOW PRN MC RAD 06/29/20 17:00 07/02/20 16:45 Dextrose (Dextrose 50%) 25 ml Q30M PRN IV Hypoglycemia 06/27/20 13:30 09/25/20 13:29 Dextrose (Dextrose 50%) 50 ml Q30M PRN IV Hypoglycemia 06/27/20 13:30 09/25/20 13:29 Enoxaparin Sodium (Lovenox) 100 mg Q24H SUBQ 06/27/20 14:30 09/25/20 14:29 06/29/20 14:47 Insulin Aspart (NovoLOG) BEFORE MEALS AND HS SUBQ 06/27/20 16:30 09/25/20 16:29 06/29/20 12:53 Insulin Aspart (NovoLOG) 6 units NOVOTIAC SUBQ 06/28/20 16:50 09/26/20 16:49 06/29/20 06:25 Insulin Detemir (Levemir) 35 units QHS SUBQ 06/28/20 21:00 09/26/20 20:59 06/28/20 21:05 Magnesium Hydroxide (Mom) 30 ml HSPRN PRN ORAL Constipation 06/27/20 13:30 07/27/20 13:29 Nitroglycerin (Ntg) 0.4 mg Q5M PRN SL Prn Chest Pain 06/27/20 13:30 07/27/20 13:29 Ondansetron HCl (Zofran) 4 mg Q6H PRN IVP Nausea & Vomiting 06/27/20 13:30 07/27/20 13:29 06/27/20 21:10 Sodium 1,000 ml @ 175 mls/hr Q5H43M IV 06/29/20 10:00 07/29/20 09:59 06/29/20 10:19 Sodium Chloride 1,000 ml @ 150 mls/hr Q6H40M IVLG 06/27/20 14:30 07/27/20 14:29 06/29/20 03:53 Sangeetha Roger MD Jun 29, 2020 17:28
--- NOTE | 2020-06-29 19:37 | General Progress Note ---
Subjective ROS Limited/Unobtainable: Yes Allergies: Coded Allergies: No Known Allergies (Unverified , 06/27/20) Objective Last 24 Hour Vital Signs Date Time Temp Pulse Resp B/P (MAP) Pulse Ox O2 Delivery O2 Flow Rate FiO2 06/29/20 16:00 98.7 71 18 137/77 (97) 96 06/29/20 16:00 120 06/29/20 12:00 96.8 93 22 131/81 (98) 97 06/29/20 12:00 120 06/29/20 09:00 Room Air 06/29/20 08:00 97.8 83 19 129/68 (88) 97 06/29/20 08:00 118 06/29/20 04:00 98.9 111 20 134/92 (106) 96 06/29/20 04:00 119 06/29/20 00:00 98.1 110 20 130/89 (103) 94 06/29/20 00:00 122 06/28/20 21:00 Room Air 06/28/20 20:00 98.6 115 20 136/93 (107) 96 06/28/20 20:00 134 Intake and Output 06/28/20 06/29/20 19:00 07:00 Intake Total 0 ml 200 ml Balance 0 ml 200 ml Intake Oral 0 ml 200 ml # Voids 2 Laboratory Tests 06/28/20 20:48: POC Whole Blood Glucose 234H 06/29/20 07:24: Sodium Level 158#H, Potassium Level 3.9, Chloride Level 122H, Carbon Dioxide Level 24, Anion Gap 12, Blood Urea Nitrogen 29H, Creatinine 2.3H, Estimat Glomerular Filtration Rate 29.2, Glucose Level 271H, Calcium Level 9.3, Phosphorus Level 1.8L, Magnesium Level 2.8H, Troponin I 0.192H, Pro-B-Type Natriuretic Peptide 625H 06/29/20 15:30: Sodium Level 160H, Potassium Level 3.9, Chloride Level 124H, Carbon Dioxide Level 27, Blood Urea Nitrogen 28H, Creatinine 2.3H, Estimat Glomerular Filtration Rate 29.2, Glucose Level 213H, Calcium Level 9.0 Height (Feet): 6 Height (Inches): 2.00 Weight (Pounds): 201 General Appearance: no apparent distress, lethargic, confused EENT: normal ENT inspection Neck: normal alignment Cardiovascular: normal rate, regular rhythm Respiratory/Chest: lungs clear Abdomen: non tender Edema: no edema noted Arm (L), no edema noted Arm (R), no edema noted Leg (L), no edema noted Leg (R), no edema noted Pedal (L), no edema noted Pedal (R), no edema noted Generalized Neurologic: revenue enforcement collection agent II-XII grossly normal, disoriented Assessment/Plan Problem List: (1) DKA (diabetic ketoacidoses) ICD Codes: E11.10 - Type 2 diabetes mellitus with ketoacidosis without coma SNOMED: 85800862, 593477573 (2) 2019 novel coronavirus detected ICD Codes: U07.1 - COVID-19 SNOMED: 1157633930542406 (3) Dysphagia ICD Codes: R13.10 - Dysphagia, unspecified SNOMED: 51451648, 172674100 (4) Dehydration ICD Codes: E86.0 - Dehydration SNOMED: 30282040 (5) Hypernatremia ICD Codes: E87.0 - Hyperosmolality and hypernatremia SNOMED: 184845633 (6) Metabolic encephalopathy ICD Codes: G93.41 - Metabolic encephalopathy SNOMED: 54172035 Assessment/Plan: hydration, hypotonic iv, adjusted, inc rease novolog and levemir, monitor lab and mental status, trying to reach family unable so far Darrian Lara MD Jun 29, 2020 19:37
--- NOTE | 2020-06-29 19:44 | NUR ---
NURSE HAND-OFF REPORT: Important Events on Shift:[] pt refused to eat, ST eval was done, nutrition/dietary is aware Patient Status: [] full code Diet: [] consistent carb low Pending Orders: [] Pending Results/Labs:[] Pending MD notification:[] Latest Vital Signs: Temperature 98.7 , Pulse 120 , B/P 137 /77 , Respiratory Rate 18 , O2 SAT 96 , Room Air, O2 Flow Rate . Vital Sign Comment: [] EKG Rhythm: Sinus Tachycardia Rhythm change?: N MD Notified?: - MD Response: Latest Estrada Fall Score: 55 Fall Risk: High Risk Safety Measures: Call light Within Reach, Bed Alarm Zone 2, Side Rails Side Rails x2, Bed position Low and Locked. Fall Precautions: Yellow Socks Yellow Gown Door Sign Patient Fall Education Report given to []mary jane DECKER
--- NOTE | 2020-06-29 19:50 | NUR ---
NURSE NOTES: The patient is lethargic, non-verbal and was noted with a saturation of 84% RA. Dr garrett was notified and the patient was started on 4 liters of oxygen via NC .Order for ABG was also carried out as indicated
[2020-06-29 20:00] VITALS: BP 147/86
[2020-06-29] MEDS ORDERED: Levemir Flexpen SUBQ SCH (21:00)
[2020-06-30] VITALS: BP 138/99
--- NOTE | 2020-06-30 00:51 | Cardiology Progress Note ---
Subjective DATE OF SERVICE: Jun 29, 2020 Still withdrawn and lethargic Objective Last 24 Hour Vital Signs Date Time Temp Pulse Resp B/P (MAP) Pulse Ox O2 Delivery O2 Flow Rate FiO2 06/29/20 21:00 Room Air 06/29/20 20:00 122 06/29/20 20:00 99.7 94 22 147/86 (106) 94 06/29/20 16:00 98.7 71 18 137/77 (97) 96 06/29/20 16:00 120 06/29/20 12:00 96.8 93 22 131/81 (98) 97 06/29/20 12:00 120 06/29/20 09:00 Room Air 06/29/20 08:00 97.8 83 19 129/68 (88) 97 06/29/20 08:00 118 06/29/20 04:00 98.9 111 20 134/92 (106) 96 06/29/20 04:00 119 ROS: unable to obtain HEENT: normal ENT inspection RHYTHM: NSR, ST LUNGS: bilateral rhonchi CARDIAC: normal rate, regular rhythm, normal S1 and S2 ABDOMEN: normal bowel sounds, soft, no organomegaly Laboratory Tests Test 06/29/20 07:24 06/29/20 15:30 06/29/20 22:01 06/29/20 22:38 Sodium Level 158 MMOL/L (136-145) #H 160 MMOL/L (136-145) H Potassium Level 3.9 MMOL/L (3.5-5.1) 3.9 MMOL/L (3.5-5.1) Chloride Level 122 MMOL/L (98-107) H 124 MMOL/L (98-107) H Carbon Dioxide Level 24 MMOL/L (21-32) 27 MMOL/L (21-32) Anion Gap 12 mmol/L (5-15) Blood Urea Nitrogen 29 mg/dL (7-18) H 28 mg/dL (7-18) H Creatinine 2.3 MG/DL (0.55-1.30) H 2.3 MG/DL (0.55-1.30) H Estimat Glomerular Filtration Rate 29.2 mL/min (>60) 29.2 mL/min (>60) Glucose Level 271 MG/DL (74-106) H 213 MG/DL (74-106) H Calcium Level 9.3 MG/DL (8.5-10.1) 9.0 MG/DL (8.5-10.1) Phosphorus Level 1.8 MG/DL (2.5-4.9) L Magnesium Level 2.8 MG/DL (1.8-2.4) H Troponin I 0.192 ng/mL (0.000-0.056) Pro-B-Type Natriuretic Peptide 625 pg/mL (0-125) H POC Whole Blood Glucose 194 MG/DL (74-106) H Arterial Blood pH 7.413 (7.350-7.450) Arterial Blood Partial Pressure CO2 38.2 mmHg (35.0-45.0) Arterial Blood Partial Pressure O2 52.3 mmHg (75.0-100.0) L Arterial Blood HCO3 23.8 mmol/L (22.0-26.0) Arterial Blood Oxygen Saturation 88.8 % (95-100) *L Arterial Blood Base Excess -0.5 (-2-2) Robert Test Positive Microbiology Date/Time Source Procedure Growth Status 06/28/20 21:08 Nasal Nares Right - Final Complete 06/28/20 21:08 Nasal Nares Right - Final Complete 06/27/20 16:47 Urine,Clean Catch Urine Culture - Final Mixed Gram Positive Organism Complete 06/27/20 11:09 Nasopharynx SARS-CoV-2 RdRp Gene Assay - Final Complete Assessment/Plan Assessment/Plan COVID 19 PNA Dehydration Hypernatremia Acute coronary insuff Toxic encephalopathy Metabolic encephalopathy DKA Anti-platelet rx with ASA Hypotonic IVF Antivirals Steroids Anti-coagulation Isolation Taper O2 Titrate diabetic regimen [place] Rodriguez MD Jun 30, 2020 00:51
--- NOTE | 2020-06-30 02:57 | NUR ---
NURSE NOTES: ABG result shows that patient O2 saturation at 88.8l. RT was called and the patient was started on a non-rebreather as indicated with Spo2 @ 99% noted
[2020-06-30] MEDS: 1/2NS w/KCl 20mEq 1000ml 1,000 ML IV SCH ×4 (03:17→21:15)
[2020-06-30 04:00] VITALS: BP 146/70
[2020-06-30] MEDS: NovoLOG Insulin Flexpen SUBQ SCH ×7 (06:44→21:18)
--- NOTE | 2020-06-30 06:54 | NUR ---
NURSE NOTES: The patient is now alert and oriented x3 and is cooperative with his care.He remained on non-rebreather @15 L well tolerated.
--- NOTE | 2020-06-30 07:25 | NUR ---
NURSE HAND-OFF REPORT: Important Events on Shift:Alert and awake Patient Status: Diet: Pending Orders: Pending Results/Labs: Pending MD notification: Latest Vital Signs: Temperature 98.0 , Pulse 114 , B/P 146 /70 , Respiratory Rate 20 , O2 SAT 96 , Room Air, O2 Flow Rate . Vital Sign Comment: EKG Rhythm: Sinus Tachycardia Rhythm change?: N MD Notified?: - MD Response: Latest Estraad Fall Score: 55 Fall Risk: High Risk Safety Measures: Call light Within Reach, Bed Alarm Zone 2, Side Rails Side Rails x2, Bed position Low and Locked. Fall Precautions: Yellow Socks Yellow Gown Door Sign Patient Fall Education Report given to .
--- NOTE | 2020-06-30 07:29 | NUR ---
NURSE NOTES: Pt received from mary ferreira. pt in bed eating breakfast. IV running in AC at 175cc/hr. no distress noted. Pt has taken his nonrebreather off to eat. reinforced keeping it on and only taking off for small quick bites of his food. pt states understanding. bed low and locked, call light within reach.
[2020-06-30 08:00] VITALS: BP 137/92
--- NOTE | 2020-06-30 08:12 | NUR ---
RD ASSESSMENT & RECOMMENDATIONS SEE CARE ACTIVITY FOR COMPLETE ASSESSMENT DAILY ESTIMATED NEEDS: Needs based on DM, wound, pulmonary 91.4kg 25-30 kcals/kg 6471-2272 total kcals 1.25-2 g protein/kg 114-183 g total protein 25-30 mL/kg 8754-7563 total fluid mLs NUTRITION DIAGNOSIS: Increased pro needs needs r/t wound healing as evidenced by advanced diabetic L heel wound, full eval pending, adm w. A1C 10.7, BG 697, uglu 4+. CURRENT DIET: CCHO LOW PO DIET RECOMMENDATIONS: CCHO MED + DOUBLE PROTEIN PORTIONS ADDITIONAL RECOMMENDATIONS: 1) Glucerna 1 tetra TID w/ meals 2) Wound care: f/up w/ WC eval Add MARIO BID, Vit C 500mg BID, MVI w/ min qdaily 3) Non oral feeds if pt is unable to tolerate oral po 4) Maintain accurate bed scale weights
[2020-06-30] MEDS: Aspirin Baby 81mg ORAL SCH (08:38)
--- NOTE | 2020-06-30 09:00 | NUR ---
NURSE NOTES: Incident report done re missing dentures. Per pt, he came to the ED with both upper and lower dentures. According to belongings charting, he only had lower dentures. Dentures charted as being at bedside but they are not there. Checked room 219 where pt was previously. not there. Called ED to check if they still have it there. Per pt sister Kimberli mark was sent to hospital with dentures. 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 Therefore he did not notice that his dentures are missing until today. Notification #[id number]
--- NOTE | 2020-06-30 09:15 | NUR ---
Speech pathology Note (Dysphagia F/U) Hypoxemia overnight: AB.41/38/52.3/23.8/88.8/-0.5 Currently on 15liter via NRM SPO2 94~97 S: Pt is awake and alert. Much better level of alertness compared from last night. O: 1. Swallow safety: PO intake is fair due to nausea according to nursing. NO clinical indication of oropharyngeal dysphagia. Speech is clear and voice is intact this morning. Pt remains at risk of gravitational aspiration with nausea. Resume upright position. A/P 1. Functional swallow -aspiration risk -Continue with current diet with aspiration precaution Daryn Quinones
[2020-06-30 09:53] LABS: BASOPHILS % (AUTO) 1.1 % (0.0-2.0); HEMATOCRIT 46.6 % (42.0-52.0); HEMOGLOBIN 15.1 G/DL (14.2-18.0); LYMPHOCYTES % (AUTO) 15.7 % (20.0-45.0); MEAN CORPUSCULAR VOLUME 80 FL (80-99); MONOCYTES % (AUTO) 3.6 % (1.0-10.0); NEUTROPHILS % (AUTO) 79.6 % (45.0-75.0); PLATELET COUNT 165 K/UL (150-450); RED BLOOD COUNT 5.85 M/UL (4.70-6.10); RED CELL DISTRIBUTION WIDTH 17.9 % (11.6-14.8); WHITE BLOOD COUNT 6.2 K/UL (4.8-10.8)
[2020-06-30 10:12] LABS: ALBUMIN 2.5 G/DL (3.4-5.0); ALBUMIN/GLOBULIN RATIO 0.5 (1.0-2.7); BILIRUBIN,TOTAL 0.6 MG/DL (0.2-1.0); CALCIUM 9.2 MG/DL (8.5-10.1); CREATININE 2.3 MG/DL (0.55-1.30); POTASSIUM 3.8 MMOL/L (3.5-5.1)
--- NOTE | 2020-06-30 11:30 | NUR ---
NURSE NOTES: Reported critical NS to Dr. garrett, per MD do bladder scan if greater than 400 ml do ashraf cath. 678ml noted on bladder scan therefore ashraf inserted.
--- NOTE | 2020-06-30 11:32 | Pulmonology Progress Note ---
Subjective ROS Limited/Unobtainable: Yes Constitutional: Reports: fatigue, other - saturations stable ; Denies: fever Gastrointestinal/Abdominal: Denies: nausea, vomiting, diarrhea Psychiatric: Reports: other - NA Skin: Denies: rash Musculoskeletal: Reports: other - NA Allergies: Coded Allergies: No Known Allergies (Unverified , 06/27/20) Subjective tele this am desaturates, started on NRM, which he was removing constantly, subsequently was placed on O2 6 L via NC no CP, no SOB no fevers mild leukocytosis resolved inflam markers elevated Objective Last 24 Hour Vital Signs Date Time Temp Pulse Resp B/P (MAP) Pulse Ox O2 Delivery O2 Flow Rate FiO2 06/30/20 09:00 Non-Rebreather 15.0 06/30/20 08:00 115 06/30/20 08:00 97.8 114 22 137/92 (107) 96 06/30/20 04:00 114 06/30/20 04:00 98.0 115 20 146/70 (95) 96 06/30/20 00:00 98.9 121 24 138/99 (112) 94 06/30/20 00:00 121 06/29/20 21:00 Room Air 06/29/20 20:00 122 06/29/20 20:00 99.7 94 22 147/86 (106) 94 06/29/20 16:00 98.7 71 18 137/77 (97) 96 06/29/20 16:00 120 06/29/20 12:00 96.8 93 22 131/81 (98) 97 06/29/20 12:00 120 Intake and Output 06/29/20 06/30/20 18:59 06:59 Intake Total 100 ml 2100 ml Output Total 550 ml Balance 100 ml 1550 ml Intake Oral 100 ml IV Total 2100 ml Output Urine Total 550 ml Objective General Appearance: no apparent distress, alert Lines, tubes and drains: peripheral HEENT: normocephalic, atraumatic, anicteric, mucous membranes moist, O2 6L via NC Neck: non-tender, normal alignment, supple Respiratory/Chest: lungs clear, no respiratory distress, no accessory muscle use Cardiovascular/Chest: tachycardia - ST Abdomen: normal bowel sounds, non tender, soft Extremities: normal range of motion, no calf tenderness, normal capillary refill Skin Exam: other - L foot ulcer Neurologic: no motor/sensory deficits, alert, oriented x 3, responsive Musculoskeletal: normal muscle bulk Microbiology Date/Time Source Procedure Growth Status 06/28/20 21:08 Nasal Nares Right - Final Complete 06/28/20 21:08 Nasal Nares Right - Final Complete 06/27/20 16:47 Urine,Clean Catch Urine Culture - Final Mixed Gram Positive Organism Complete Laboratory Tests 06/29/20 15:30: Sodium Level 160H, Potassium Level 3.9, Chloride Level 124H, Carbon Dioxide [place] v[place] 27, Blood Urea Nitrogen 28H, Creatinine 2.3H, Estimat Glomerular Filtration Rate 29.2, Glucose Level 213H, Calcium Level 9.0 06/29/20 22:01: POC Whole Blood Glucose 194H 06/29/20 22:38: Arterial Blood pH 7.413, Arterial Blood Partial Pressure CO2 38.2, Arterial Blood Partial Pressure O2 52.3L, Arterial Blood HCO3 23.8, Arterial Blood Oxygen Saturation 88.8*L, Arterial Blood Base Excess -0.5, Robert Test Positive 06/30/20 06:39: POC Whole Blood Glucose 200H 06/30/20 06:50: Reticulocyte Count [Pending], Ferritin > 2000H, Lactate Dehydrogenase 561H 06/30/20 09:30: White Blood Count 6.2, Red Blood Count 5.85, Hemoglobin 15.1, Hematocrit 46.6, Mean Corpuscular Volume 80, Mean Corpuscular Hemoglobin 25.8L, Mean Corpuscular Hemoglobin Concent 32.3, Red Cell Distribution Width 17.9H, Platelet Count 165, Mean Platelet Volume 8.9, Neutrophils (%) (Auto) 79.6H, Lymphocytes (%) (Auto) 15.7L, Monocytes (%) (Auto) 3.6, Eosinophils (%) (Auto) 0.0, Basophils (%) (Auto) 1.1, Sodium Level 163*H, Potassium Level 3.8, Chloride Level 130H, Carbon Dioxide Level 28, Anion Gap 7, Blood Urea Nitrogen 33H, Creatinine 2.3H, Estimat Glomerular Filtration Rate 29.2, Glucose Level 172H, Calcium Level 9.2, Total Bilirubin 0.6, Aspartate Amino Transf (AST/SGOT) 64H, Alanine Aminot ransferase (ALT/SGPT) 23, Alkaline Phosphatase 76, C-Reactive Protein, Quantitative [Pending], Total Protein 7.7, Albumin 2.5L, Globulin 5.2, Albumin/Globulin Ratio 0.5L Current Medications Medications (Trade) Dose Ordered Sig/Td Route PRN Reason Start Time Stop Time Status Last Admin Dose Admin Acetaminophen (Tylenol) 650 mg Q4H PRN ORAL Mild Pain (Pain Scale 1-3) 06/27/20 13:30 07/27/20 13:29 06/27/20 21:11 Acetaminophen (Tylenol) 650 mg Q4H PRN ORAL fever 06/27/20 13:30 07/27/20 13:29 Albuterol Sulfate (Proventil MDI) 2 puff Q4H PRN INH Shortness of Breath 06/27/20 13:45 09/25/20 13:44 Aspirin (ASA) 81 mg DAILY ORAL 06/27/20 13:30 08/11/20 13:29 06/30/20 08:38 Barium Sulfate (Varibar Honey) 250 ml NOW PRN MC RAD 06/29/20 17:00 07/02/20 16:45 Barium Sulfate (Varibar [place]) 240 ml NOW PRN MC RAD 06/29/20 17:00 07/02/20 16:45 Barium Sulfate (Varibar Pudding) 230 ml NOW PRN MC RAD 06/29/20 17:00 07/02/20 16:45 Barium Sulfate (Varibar Thin Liquid powder) 148 gm NOW PRN MC RAD 06/29/20 17:00 07/02/20 16:45 Dextrose (Dextrose 50%) 25 ml Q30M PRN IV Hypoglycemia 06/27/20 13:30 09/25/20 13:29 Dextrose (Dextrose 50%) 50 ml Q30M PRN IV Hypoglycemia 06/27/20 13:30 09/25/20 13:29 Enoxaparin Sodium (Lovenox) 100 mg Q24H SUBQ 06/27/20 14:30 09/25/20 14:29 06/29/20 14:47 Insulin Aspart (NovoLOG) BEFORE MEALS AND HS SUBQ 06/27/20 16:30 09/25/20 16:29 06/30/20 06:44 Insulin Aspart (NovoLOG) 10 units NOVOTIAC SUBQ 06/30/20 06:30 09/28/20 06:29 06/30/20 06:45 Insulin Detemir (Levemir) 42 units QHS SUBQ 06/29/20 21:00 09/27/20 20:59 06/29/20 22:08 Magnesium Hydroxide (Mom) 30 ml HSPRN PRN ORAL Constipation 06/27/20 13:30 07/27/20 13:29 Nitroglycerin (Ntg) 0.4 mg Q5M PRN SL Prn Chest Pain 06/27/20 13:30 07/27/20 13:29 Ondansetron HCl (Zofran) 4 mg Q6H PRN IVP Nausea & Vomiting 06/27/20 13:30 07/27/20 13:29 06/30/20 08:59 Sodium 1,000 ml @ 175 mls/hr Q5H43M IV 06/29/20 10:00 07/29/20 09:59 06/30/20 08:38 Assessment/Plan Assessment/Plan ASSESSMENT COVID 19 DKA Acute renal failure Hyperkalemia DM HTN Hypernatremia Elevated troponin, likely troponin leak 2 ARF PLAN OF CARE tele isolation Date of sx onset: 4 days ago prior to ED presentation Positive test: 06/27/20 O2 NRM-NC high flow HFA prn DEX Day #1 ( 06/30 - ) started given developed hypoxia REM not a candidate given ARF a/c LMWH get venous Duplex BLE D dimer 0,82, LDH 561, ferritin >2000 Trend CRP 62.3- pending for this am CXR 06/27 Bilateral subsegmental atelectasis CXR 06/28 : Increasing left peripheral infiltrates, likely reflects increasing pneumonia. CXR for am abx per ID recs - currently off abx aggressive hydration and BS management - per primary anion gap closed ; off insulin gtt BS management per primary HgA1c -10.7, not at goal hypoglycemia protocol diabetic diet and diabetic teaching creat trending down, hyper K resolved 2 nd troponin mildly elevated likely troponin leak 2 to ARF cardio follows monitor volumes and renal function fup with consultants recs FC case discussed and evaluated by supervising physician Sophia Musa NP Jun 30, 2020 11:32
[2020-06-30] MEDS: dexAMETHasone 10mg/ml Inj IV SCH (11:56)
[2020-06-30] MEDS: Milk of Magnesia 30ml Ud ORAL SCH ×2 (11:56→17:49)
--- NOTE | 2020-06-30 11:57 | NUR ---
NURSE NOTES: Please not that 11:30 novolog held because pt nauseas and not able to eat without vomiting at this time.
[2020-06-30 12:00] VITALS: BP 154/91
[2020-06-30] MEDS: Enoxaparin 100mg Inj SUBQ SCH (14:39)
--- NOTE | 2020-06-30 14:42 | Diagnostic Imaging Report ---
Indication: Shortness of breath Technique: One view of the chest Comparison: 06/28/2020 Findings: Left lower lobe infiltrate is unchanged. Right perihilar atelectasis and possible consolidation is unchanged. Impression: Unchanged, over one day, findings as above.
[2020-06-30 16:00] VITALS: BP 145/97
--- NOTE | 2020-06-30 16:25 | NUR ---
NURSE NOTES:WOUND CARE NOTES:Pt presented on admission with Multiple Ulcers R and L Feet. Full thickness Ulcer plantar R 1st Metatarsal. Base of wound mixed necrosis and slough. Bone is palpable(L)2.5cm x (W)1.8cm x (D)0.4cm.Thick-callused borders noted. No erythema, induration or fluctuance periwound. Full Thickness Ulcer Plantar L Foot (L)9cm x (W)3.5cmx (D)1.1cm, Undermined borders clockwise 6-9o'clock with tunneling at 7 o'clock by 4cm. Base of wound is génesis. Wound is malodorous with moderate amt of green exudate. Edges are semi-detached, and callused with an area of necrosis noted distally along borders. Distally,but in close Proximity is an area of dry eschar (L)1.5cm x (W)3.8cm.No erythema, induration or fluctuance periwound.Rocker foot Bottom noted L foot. Both heels are dry and callused. No evidence of skin breakdown sacrum. Recommendations: Rossana obtain Physician consult for further wound evaluation. Cleanse wound plantar R 1st Metatarsal with Saline. Apply TheraHoney. Apply Cavilon Skin Barrier Periwound. Cover with Optifoam Daily and prn. Cleanse wound Plantar L Foot with Saline.Apply Therahoney. Apply Maxosrb Extra(Calcium Alginate) Apply Cavilon periwound ,Cover with ABD pad and wrap with Kerlix Daily and prn. Apply Betadine to Necrotic area Plantar L foot Daily and prn. Apply Moisture Barrier Paste to Sacrum. Cover with Optifoam drsg. Change every 3 days and prn. Reposition at least every 2 hours or as tolerated. Elevate both lower extremities with pillows with both heels floated off mattress.
--- NOTE | 2020-06-30 19:29 | NUR ---
NURSE HAND-OFF REPORT: Important Events on Shift:[no remarkable events] Patient Status: [full code] Diet: [CCHO Medium] Pending Orders: [] Pending Results/Labs:[] Pending MD notification:[] Latest Vital Signs: Temperature 97.5 , Pulse 111 , B/P 145 /97 , Respiratory Rate 22 , O2 SAT 95 , Room Air, O2 Flow Rate 15.0 . Vital Sign Comment: [blood sugars stable] EKG Rhythm: Sinus Tachycardia Rhythm change?: N MD Notified?: - MD Response: Latest Estrada Fall Score: 55 Fall Risk: High Risk Safety Measures: Call light Within Reach, Bed Alarm Zone 2, Side Rails Side Rails x2, Bed position Low and Locked. Fall Precautions: Yellow Socks Yellow Gown Door Sign Patient Fall Education Report given to [Jayden RN].
--- NOTE | 2020-06-30 19:31 | Cardiology Report ---
APPROVED REPORT EKG Measurement Heart [id number] <Conclusion> Sinus tachycardia Biatrial enlargement Abnormal ECG
--- NOTE | 2020-06-30 19:33 | NUR ---
NURSE NOTES: The Patient is alert and ariented x4 and is presently on 6 liters of oxygen via NC with Spo2 @ 93% RA. The patient is calm and cooperative with his care and does not seem to be in any distress. The patient has a Left AC 20g IV line and a left wrist 22g.Both IV lines are patent and asymptomatic.The bed in low and locked lvel and siderails up x2 with call light within easy reach.Will continue to monitor as indicated
[2020-06-30 20:00] VITALS: BP 155/106
[2020-06-30] MEDS: Dyna-Hex 2% Top Sol 2oz TOPIC SCH (20:00)
--- NOTE | 2020-06-30 20:26 | General Progress Note ---
Subjective ROS Limited/Unobtainable: Yes Allergies: Coded Allergies: No Known Allergies (Unverified , 06/27/20) Objective Last 24 Hour Vital Signs Date Time Temp Pulse Resp B/P (MAP) Pulse Ox O2 Delivery O2 Flow Rate FiO2 06/30/20 20:00 98.5 105 24 155/106 (122) 94 06/30/20 16:00 97.5 111 22 145/97 (113) 95 06/30/20 16:00 108 06/30/20 12:00 97.5 115 22 154/91 (112) 95 06/30/20 12:00 116 06/30/20 09:00 Non-Rebreather 15.0 06/30/20 08:00 115 06/30/20 08:00 97.8 114 22 137/92 (107) 96 06/30/20 04:00 114 06/30/20 04:00 98.0 115 20 146/70 (95) 96 06/30/20 00:00 98.9 121 24 138/99 (112) 94 06/30/20 00:00 121 06/29/20 21:00 Room Air Intake and Output 06/29/20 06/30/20 19:00 07:00 Intake Total 275 ml 2100 ml Output Total 550 ml Balance 275 ml 1550 ml Intake Oral 100 ml IV Total 175 ml 2100 ml Output Urine Total 550 ml Laboratory Tests 06/29/20 22:01: POC Whole Blood Glucose 194H 06/29/20 22:38: Arterial Blood pH 7.413, Arterial Blood Partial Pressure CO2 38.2, Arterial Blood Partial Pressure O2 52.3L, Arterial Blood HCO3 23.8, Arterial Blood Oxygen Saturation 88.8*L, Arterial Blood Base Excess -0.5, Robert Test Positive 06/30/20 06:39: POC Whole Blood Glucose 200H 06/30/20 06:50: Reticulocyte Count 0.7, Ferritin > 2000H, Lactate Dehydrogenase 561H 06/30/20 09:30: White Blood Count 6.2, Red Blood Count 5.85, Hemoglobin 15.1, Hematocrit 46.6, Mean Corpuscular Volume 80, Mean Corpuscular Hemoglobin 25.8L, Mean Corpuscular Hemoglobin Concent 32.3, Red Cell Distribution Width 17.9H, Platelet Count 165, Mean Platelet Volume 8.9, Neutrophils (%) (Auto) 79.6H, Lymphocytes (%) (Auto) 15.7L, Monocytes (%) (Auto) 3.6, Eosinophils (%) (Auto) 0.0, Basophils (%) (Auto) 1.1, Sodium Level 163*H, Potassium Level 3.8, Chloride Level 130H, Carbon Dioxide Level 28, Anion Gap 7, Blood Urea Nitrogen 33H, Creatinine 2.3H, Estimat Glomerular Filtration Rate 29.2, Glucose Level 172H, Calcium Level 9.2, Total Bilirubin 0.6, Aspartate Amino Transf (AST/SGOT) 64H, Alanine Aminotransferase (ALT/SGPT) 23, Alkaline Phosphatase 76, C-Reactive Protein, Quantitative 111.7H, Total Protein 7.7, Albumin 2.5L, Globulin 5.2, Albumin/Globulin Ratio 0.5L 06/30/20 17:24: Erythrocyte Sedimentation Rate 88H, D-Dimer 1.00H, Ferritin > 2000H Height (Feet): 6 Height (Inches): 2.00 Weight (Pounds): 201 General Appearance: alert, confused EENT: normal ENT inspection Neck: normal alignment Cardiovascular: normal rate, regular rhythm Respiratory/Chest: lungs clear Abdomen: non tender, soft, no organomegaly Edema: trace edema Neurologic: frame stylist II-XII grossly normal Assessment/Plan Problem List: (1) DKA (diabetic ketoacidoses) ICD Codes: E11.10 - Type 2 diabetes mellitus with ketoacidosis without coma SNOMED: 62715206, 297592809 (2) 2019 novel coronavirus detected ICD Codes: U07.1 - COVID-19 SNOMED: 4448178047951685 (3) Dysphagia ICD Codes: R13.10 - Dysphagia, unspecified SNOMED: 99074489, 788180395 (4) Dehydration ICD Codes: E86.0 - Dehydration SNOMED: 56050622 (5) Hypernatremia ICD Codes: E87.0 - Hyperosmolality and hypernatremia SNOMED: 528489986 (6) Metabolic encephalopathy ICD Codes: G93.41 - Metabolic encephalopathy SNOMED: 19165063 (7) Diabetic foot ulcer ICD Codes: E11.621 - Type 2 diabetes mellitus with foot ulcer; L97.509 - Non- pressure chronic ulcer of other part of unspecified foot with unspecified severity SNOMED: 84161016, 571368563 (8) Urinary retention due to benign prostatic hyperplasia ICD Codes: N40.1 - Benign prostatic hyperplasia with lower urinary tract symptoms; R33.8 - Other retention of urine SNOMED: 816159890, 271631940, [id number] Assessment/Plan: hydration, hypotonic iv, adjusted, increase novolog and levemir, monitor lab and mental status, trying to reach family Kimberli [phone] reached 06/30, discussed high risk and code status Darrian Lara MD Jun 30, 2020 20:26
[2020-06-30] MEDS ORDERED: Bisacodyl EC 5mg tab ORAL SCH (20:30)
[2020-06-30] MEDS: Levemir Flexpen SUBQ SCH (21:17)
[2020-06-30] MEDS: Tamsulosin 0.4mg cap ORAL SCH (21:24)
[2020-06-30] MEDS: Losartan 50mg tab ORAL SCH (21:25)
[2020-07-01] VITALS: BP 129/92
--- NOTE | 2020-07-01 01:25 | Cardiology Progress Note ---
Subjective DATE OF SERVICE: Jun 30, 2020 More alert Still on O2 suppl IVF ongoing Objective Last 24 Hour Vital Signs Date Time Temp Pulse Resp B/P (MAP) Pulse Ox O2 Delivery O2 Flow Rate FiO2 07/01/20 00:00 98.3 99 22 129/92 (104) 94 06/30/20 21:25 155/106 06/30/20 21:00 Non-Rebreather 15.0 06/30/20 20:00 98.5 105 24 155/106 (122) 94 06/30/20 20:00 104 06/30/20 16:00 97.5 111 22 145/97 (113) 95 06/30/20 16:00 108 06/30/20 12:00 97.5 115 22 154/91 (112) 95 06/30/20 12:00 116 06/30/20 09:00 Non-Rebreather 15.0 06/30/20 08:00 115 06/30/20 08:00 97.8 114 22 137/92 (107) 96 06/30/20 04:00 114 06/30/20 04:00 98.0 115 20 146/70 (95) 96 HEENT: normal ENT inspection RHYTHM: NSR, ST LUNGS: bilateral rhonchi CARDIAC: normal rate, regular rhythm, normal S1 and S2 ABDOMEN: normal bowel sounds, soft, no organomegaly EXTREMITIES: non-tender, trace edema Laboratory Tests Test 06/30/20 06:39 06/30/20 06:50 06/30/20 09:30 06/30/20 17:24 POC Whole Blood Glucose 200 MG/DL (74-106) H Reticulocyte Count 0.7 % (0.5-2.0) Ferritin > 2000 NG/ML (8-388) H > 2000 NG/ML (8-388) H Lactate Dehydrogenase 561 U/L (81-234) H White Blood Count 6.2 K/UL (4.8-10.8) Red Blood Count 5.85 M/UL (4.70-6.10) Hemoglobin 15.1 G/DL (14.2-18.0) Hematocrit 46.6 % (42.0-52.0) Mean Corpuscular Volume 80 FL (80-99) Mean Corpuscular Hemoglobin 25.8 PG (27.0-31.0) L Mean Corpuscular Hemoglobin Concent 32.3 G/DL (32.0-36.0) Red Cell Distribution Width 17.9 % (11.6-14.8) H Platelet Count 165 K/UL (150-450) Mean Platelet Volume 8.9 FL (6.5-10.1) Neutrophils (%) (Auto) 79.6 % (45.0-75.0) H Lymphocytes (%) (Auto) 15.7 % (20.0-45.0) L Monocytes (%) (Auto) 3.6 % (1.0-10.0) Eosinophils (%) (Auto) 0.0 % (0.0-3.0) Basophils (%) (Auto) 1.1 % (0.0-2.0) Sodium Level 163 MMOL/L (136-145) *H Potassium Level 3.8 MMOL/L (3.5-5.1) Chloride Level 130 MMOL/L (98-107) H Carbon Dioxide Level 28 MMOL/L (21-32) Anion Gap 7 mmol/L (5-15) Blood Urea Nitrogen 33 mg/dL (7-18) H Creatinine 2.3 MG/DL (0.55-1.30) H Estimat Glomerular Filtration Rate 29.2 mL/min (>60) Glucose Level 172 MG/DL (74-106) H Calcium Level 9.2 MG/DL (8.5-10.1) Total Bilirubin 0.6 MG/DL (0.2-1.0) Aspartate Amino Transf (AST/SGOT) 64 U/L (15-37) H Alanine Aminotransferase (ALT/SGPT) 23 U/L (12-78) Alkaline Phosphatase 76 U/L (46-116) C-Reactive Protein, Quantitative 111.7 mg/L (<5) H Total Protein 7.7 G/DL (6.4-8.2) Albumin 2.5 G/DL (3.4-5.0) L Globulin 5.2 g/dL Albumin/Globulin Ratio 0.5 (1.0-2.7) L Erythrocyte Sedimentation Rate 88 MM/HR (0-20) H D-Dimer 1.00 mg/L FEU (0.00-0.49) H Microbiology Date/Time Source Procedure Growth Status 06/28/20 21:08 Nasal Nares Right - Final Complete 06/28/20 21:08 Nasal Nares Right - Final Complete Assessment/Plan Assessment/Plan Covid 19 PNA Toxic and metabolic encephalopathies DKA dehydration/hypernatremia Acute coronary insuff Continue isolation Plan of care updated and discussed with [place] White MD Jul 01, 2020 01:25
[2020-07-01 04:00] VITALS: BP 132/85
[2020-07-01 06:11] LABS: BASOPHILS % (AUTO) 0.3 % (0.0-2.0); HEMATOCRIT 39.9 % (42.0-52.0); HEMOGLOBIN 12.9 G/DL (14.2-18.0); LYMPHOCYTES % (AUTO) 15.9 % (20.0-45.0); MEAN CORPUSCULAR VOLUME 81 FL (80-99); MONOCYTES % (AUTO) 3.2 % (1.0-10.0); NEUTROPHILS % (AUTO) 80.6 % (45.0-75.0); PLATELET COUNT 157 K/UL (150-450); RED BLOOD COUNT 4.91 M/UL (4.70-6.10); RED CELL DISTRIBUTION WIDTH 16.2 % (11.6-14.8); WHITE BLOOD COUNT 7.5 K/UL (4.8-10.8)
[2020-07-01] MEDS: 1/2NS w/KCl 20mEq 1000ml 1,000 ML IV SCH ×2 (06:16→16:35)
[2020-07-01] MEDS: NovoLOG Insulin Flexpen SUBQ SCH ×7 (06:39→21:06)
[2020-07-01 06:52] LABS: ALBUMIN 2.2 G/DL (3.4-5.0); ALBUMIN/GLOBULIN RATIO 0.5 (1.0-2.7); BILIRUBIN,TOTAL 0.6 MG/DL (0.2-1.0); CALCIUM 8.4 MG/DL (8.5-10.1); CREATININE 2.1 MG/DL (0.55-1.30); POTASSIUM 4.8 MMOL/L (3.5-5.1)
--- NOTE | 2020-07-01 07:10 | NUR ---
NURSE HAND-OFF REPORT: Important Events on Shift:Alert and stable, had a BM last night Patient Status: Diet: Pending Orders: Pending Results/Labs: Pending MD notification: Latest Vital Signs: Temperature 97.9 , Pulse 94 , B/P 132 /85 , Respiratory Rate 22 , O2 SAT 93 , Room Air, O2 Flow Rate 15.0 . Vital Sign Comment: EKG Rhythm: Sinus Rhythm Rhythm change?: N MD Notified?: - MD Response: Latest Estrada Fall Score: 55 Fall Risk: High Risk Safety Measures: Call light Within Reach, Bed Alarm Zone 2, Side Rails Side Rails x2, Bed position Low and Locked. Fall Precautions: Yellow Socks Yellow Gown Door Sign Patient Fall Education Report given to .
[2020-07-01 08:00] VITALS: BP 148/90
[2020-07-01] MEDS: Losartan 50mg tab ORAL SCH ×2 (08:32→20:52)
[2020-07-01] MEDS: Aspirin Baby 81mg ORAL SCH (08:32)
[2020-07-01] MEDS: dexAMETHasone 10mg/ml Inj IV SCH (08:33)
--- NOTE | 2020-07-01 09:17 | NUR ---
RADIOLOGY DEPT., CHEST X-RAY DONE.-P.DYE
--- NOTE | 2020-07-01 10:27 | Diagnostic Imaging Report ---
Indication: Shortness of breath Technique: One view of the chest Comparison: none Findings: Suboptimal inspiration. Left basilar infiltrate, right perihilar atelectasis and possible infiltrate are unchanged. Impression: Unchanged, over 2 days, findings as above.
[2020-07-01 12:00] VITALS: BP 138/92
--- NOTE | 2020-07-01 12:45 | Pulmonology Progress Note ---
Subjective ROS Limited/Unobtainable: Yes Constitutional: Reports: fatigue, other - saturations stable ; Denies: fever Gastrointestinal/Abdominal: Denies: nausea, vomiting, diarrhea Psychiatric: Reports: other - NA Skin: Denies: rash Musculoskeletal: Reports: other - NA Allergies: Coded Allergies: No Known Allergies (Unverified , 06/27/20) Subjective on 6 L o2 via NC no CP, no SOB no fevers mild leukocytosis resolved CRP elevated Objective Last 24 Hour Vital Signs Date Time Temp Pulse Resp B/P (MAP) Pulse Ox O2 Delivery O2 Flow Rate FiO2 07/01/20 12:00 97.5 96 20 138/92 (107) 94 07/01/20 09:00 Nasal Cannula 6.0 07/01/20 08:32 148/90 07/01/20 08:00 98 07/01/20 08:00 97.7 98 22 148/90 (109) 94 07/01/20 04:00 97.9 99 22 132/85 (101) 93 07/01/20 04:00 94 07/01/20 00:00 97 07/01/20 00:00 98.3 99 22 129/92 (104) 94 06/30/20 21:25 155/106 06/30/20 21:00 Non-Rebreather 15.0 06/30/20 20:00 98.5 105 24 155/106 (122) 94 06/30/20 20:00 104 06/30/20 16:00 97.5 111 22 145/97 (113) 95 06/30/20 16:00 108 Intake and Output 06/30/20 07/01/20 19:00 07:00 Intake Total 1500 ml 1325 ml Output Total 1200 ml 1100 ml Balance 300 ml 225 ml Intake Oral 100 ml 425 ml IV Total 1400 ml 900 ml Output Urine Total 1200 ml 1100 ml # Bowel Movements 2 Objective General Appearance: no apparent distress, alert Lines, tubes and drains: peripheral HEENT: normocephalic, atraumatic, anicteric, mucous membranes moist, O2 6L via NC Neck: non-tender, normal alignment, supple Respiratory/Chest: lungs clear, no respiratory distress, no accessory muscle use Cardiovascular/Chest: tachycardia - ST Abdomen: normal bowel sounds, non tender, soft Extremities: normal range of motion, no calf tenderness, normal capillary refill Skin Exam: other - L foot ulcer Neurologic: no motor/sensory deficits, alert, oriented x 3, responsive Musculoskeletal: normal muscle bulk Microbiology Date/Time Source Procedure Growth Status 06/28/20 21:08 Nasal Nares Right - Final Complete 06/28/20 21:08 Nasal Nares Right - Final Complete Laboratory Tests 06/30/20 17:24: Erythrocyte Sedimentation Rate 88H, D-Dimer 1.00H, Ferritin > 2000H 07/01/20 05:00: White Blood Count 7.5, Red Blood Count 4.91, Hemoglobin 12.9L, Hematocrit 39.9L, Mean Corpuscular Volume 81, Mean Corpuscular Hemoglobin 26.3L, Mean Corpuscular Hemoglobin Concent 32.4, Red Cell Distribution Width 16.2H, Platelet Count 157, Mean Platelet Volume 8.1, Neutrophils (%) (Auto) 80.6H, Lymphocytes (%) (Auto) 15.9L, Monocytes (%) (Auto) 3.2, Eosinophils (%) (Auto) 0.0, Basophils (%) (Auto) 0.3, Sodium Level 154H, Potassium Level 4.8, Chloride Level 121H, Carbon Dioxide Level 25, Anion Gap 8, Blood Urea Nitrogen 38H, Creatinine 2.1H, Estimat Glomerular Filtration Rate 32.5, Glucose Level 252H, Calcium Level 8.4L, Total Bilirubin 0.6, Aspartate Amino Transf (AST/SGOT) 62H, Alanine Aminotransferase (ALT/SGPT) 22, Alkaline Phosphatase 70, Total Protein 6.8, Albumin 2.2L, Globulin 4.6, Albumin/Globulin Ratio 0.5L Current Medications Medications (Trade) Dose Ordered Sig/Td Route PRN Reason Start Time Stop Time Status Last Admin Dose Admin Acetaminophen (Tylenol) 650 mg Q4H PRN ORAL Mild Pain (Pain Scale 1-3) 06/27/20 13:30 07/27/20 13:29 06/27/20 21:11 Acetaminophen (Tylenol) 650 mg Q4H PRN ORAL fever 06/27/20 13:30 07/27/20 13:29 Albuterol Sulfate (Proventil MDI) 2 puff Q4H PRN INH Shortness of Breath 06/27/20 13:45 09/25/20 13:44 Aspirin (ASA) 81 mg DAILY ORAL 06/27/20 13:30 08/11/20 13:29 07/01/20 08:32 Barium Sulfate (Varibar Honey) 250 ml NOW PRN MC RAD 06/29/20 17:00 07/02/20 16:45 Barium Sulfate (Varibar [place]) 240 ml NOW PRN MC RAD 06/29/20 17:00 07/02/20 16:45 Barium Sulfate (Varibar Pudding) 230 ml NOW PRN MC RAD 06/29/20 17:00 07/02/20 16:45 Barium Sulfate (Varibar Thin Liquid powder) 148 gm NOW PRN MC RAD 06/29/20 17:00 07/02/20 16:45 Chlorhexidine Gluconate (Rosario-Hex 2%) 1 applic DAILY@2000 TOPIC 06/30/20 20:00 09/28/20 19:59 Dexamethasone Sodium Phosphate (Decadron 10mg/ ml Inj) 6 mg DAILY IV 06/30/20 12:00 07/09/20 12:00 07/01/20 08:33 Dextrose (Dextrose 50%) 25 ml Q30M PRN IV Hypoglycemia 06/27/20 13:30 09/25/20 13:29 Dextrose (Dextrose 50%) 50 ml Q30M PRN IV Hypoglycemia 06/27/20 13:30 09/25/20 13:29 Enoxaparin Sodium (Lovenox) 100 mg Q24H SUBQ 06/27/20 14:30 09/25/20 14:29 06/30/20 14:39 Famotidine (Pepcid I.v.) 20 mg Q12HR IVP 06/30/20 12:00 07/30/20 11:59 07/01/20 08:33 Insulin Aspart (NovoLOG) BEFORE MEALS AND HS SUBQ 06/27/20 16:30 09/25/20 16:29 07/01/20 11:52 Insulin Aspart (NovoLOG) 10 units NOVOTIAC SUBQ 06/30/20 06:30 09/28/20 06:29 07/01/20 11:53 Insulin Detemir (Levemir) 35 units QHS SUBQ 06/30/20 21:00 09/28/20 20:59 06/30/20 21:17 Losartan Potassium (Cozaar) 50 mg EVERY 12 HOURS ORAL 06/30/20 21:15 07/30/20 21:14 1/7/21 08:32 Magnesium Hydroxide (Mom) 30 ml HSPRN PRN ORAL Constipation 06/27/20 13:30 07/27/20 13:29 Nitroglycerin (Ntg) 0.4 mg Q5M PRN SL Prn Chest Pain 06/27/20 13:30 07/27/20 13:29 Ondansetron HCl (Zofran) 4 mg Q6H PRN IVP Nausea & Vomiting 06/27/20 13:30 07/27/20 13:29 06/30/20 17:50 Sodium 1,000 ml @ 100 mls/hr Q10H IV 06/29/20 10:00 07/29/20 09:59 07/01/20 06:16 Tamsulosin HCl (Flomax) 0.8 mg BEDTIME ORAL 06/30/20 21:00 07/30/20 20:59 06/30/20 21:24 Assessment/Plan Assessment/Plan ASSESSMENT COVID 19 DKA Acute renal failure Hyperkalemia DM HTN Hypernatremia Elevated troponin, likely troponin leak 2 ARF PLAN OF CARE tele isolation Date of sx onset: 4 days ago prior to ED presentation Positive test: 06/27/20 O2 NRM-NC high flow HFA prn DEX Day #2 ( 06/30 - ) started given developed hypoxia REM not a candidate given ARF a/c LMWH get venous Duplex BLE D dimer 0,82, LDH 561, ferritin >2000 Trend CRP 62.3- 111.7 CXR 06/29 Left basilar infiltrate, right perihilar atelectasis and possible infiltrate are unchanged. abx per ID recs - currently off abx aggressive hydration and BS management - per primary anion gap closed ; off insulin gtt BS management per primary HgA1c -10.7, not at goal hypoglycemia protocol diabetic diet and diabetic teaching creat trending down, hyper K resolved 2 nd troponin mildly elevated likely troponin leak 2 to ARF cardio follows monitor volumes and renal function fup with consultants recs FC case discussed and evaluated by supervising physician Sophia Musa NP Jul 01, 2020 12:45 Jules Burnett MD Jul 01, 2020 17:23
--- NOTE | 2020-07-01 12:53 | General Progress Note ---
Subjective Constitutional: Reports: weakness HEENT: Reports: no symptoms Cardiovascular: Reports: no symptoms Respiratory: Reports: cough, shortness of breath Gastrointestinal/Abdominal: Reports: difficulty swallowing, poor appetite Genitourinary: Reports: incontinence Neurologic/Psychiatric: Reports: pre-existing deficit Endocrine: Reports: no symptoms Hematologic/Lymphatic: Reports: no symptoms Allergies: Coded Allergies: No Known Allergies (Unverified , 06/27/20) Objective Last 24 Hour Vital Signs Date Time Temp Pulse Resp B/P (MAP) Pulse Ox O2 Delivery O2 Flow Rate FiO2 07/01/20 12:00 97.5 96 20 138/92 (107) 94 07/01/20 09:00 Nasal Cannula 6.0 07/01/20 08:32 148/90 07/01/20 08:00 98 07/01/20 08:00 97.7 98 22 148/90 (109) 94 07/01/20 04:00 97.9 99 22 132/85 (101) 93 07/01/20 04:00 94 07/01/20 00:00 97 07/01/20 00:00 98.3 99 22 129/92 (104) 94 06/30/20 21:25 155/106 06/30/20 21:00 Non-Rebreather 15.0 06/30/20 20:00 98.5 105 24 155/106 (122) 94 06/30/20 20:00 104 06/30/20 16:00 97.5 111 22 145/97 (113) 95 06/30/20 16:00 108 Intake and Output 06/30/20 07/01/20 19:00 07:00 Intake Total 1500 ml 1325 ml Output Total 1200 ml 1100 ml Balance 300 ml 225 ml Intake Oral 100 ml 425 ml IV Total 1400 ml 900 ml Output Urine Total 1200 ml 1100 ml # Bowel Movements 2 Laboratory Tests 06/30/20 17:24: Erythrocyte Sedimentation Rate 88H, D-Dimer 1.00H, Ferritin > 2000H 07/01/20 05:00: White Blood Count 7.5, Red Blood Count 4.91, Hemoglobin 12.9L, Hematocrit 39.9L, Mean Corpuscular Volume 81, Mean Corpuscular Hemoglobin 26.3L, Mean Corpuscular Hemoglobin Concent 32.4, Red Cell Distribution Width 16.2H, Platelet Count 157, Mean Platelet Volume 8.1, Neutrophils (%) (Auto) 80.6H, Lymphocytes (%) (Auto) 15.9L, Monocytes (%) (Auto) 3.2, Eosinophils (%) (Auto) 0.0, Basophils (%) (Auto) 0.3, Sodium Level 154H, Potassium Level 4.8, Chloride Level 121H, Carbon Dioxide Level 25, Anion Gap 8, Blood Urea Nitrogen 38H, Creatinine 2.1H, Estimat Glomerular Filtration Rate 32.5, Glucose Level 252H, Calcium Level 8.4L, Total Bilirubin 0.6, Aspartate Amino Transf (AST/SGOT) 62H, Alanine Aminotransferase (ALT/SGPT) 22, Alkaline Phosphatase 70, Total Protein 6.8, Albumin 2.2L, Globulin 4.6, Albumin/Globulin Ratio 0.5L Height (Feet): 6 Height (Inches): 2.00 Weight (Pounds): 201 General Appearance: alert, confused EENT: other - missing denture Neck: normal alignment Cardiovascular: regular rhythm Respiratory/Chest: rhonchi - bilaterally Abdomen: non tender, soft Edema: trace edema Neurologic: digital editor II-XII grossly normal Skin: other - foot sore Assessment/Plan Problem List: (1) DKA (diabetic ketoacidoses) ICD Codes: E11.10 - Type 2 diabetes mellitus with ketoacidosis without coma SNOMED: 97022773, 536303607 (2) 2019 novel coronavirus detected ICD Codes: U07.1 - COVID-19 SNOMED: 7684583579125897 (3) Dysphagia ICD Codes: R13.10 - Dysphagia, unspecified SNOMED: 06879890, 509124061 (4) Dehydration ICD Codes: E86.0 - Dehydration SNOMED: 14909299 (5) Hypernatremia ICD Codes: E87.0 - Hyperosmolality and hypernatremia SNOMED: 542426610 (6) Metabolic encephalopathy ICD Codes: G93.41 - Metabolic encephalopathy SNOMED: 49067050 (7) Diabetic foot ulcer ICD Codes: E11.621 - Type 2 diabetes mellitus with foot ulcer; L97.509 - Non- pressure chronic ulcer of other part of unspecified foot with unspecified severity SNOMED: 55204203, 626053393 (8) Urinary retention due to benign prostatic hyperplasia ICD Codes: N40.1 - Benign prostatic hyperplasia with lower urinary tract symptoms; R33.8 - Other retention of urine SNOMED: 582220926, 555584935, [id number] Assessment/Plan: hydration, hypotonic iv, adjusted, increase novolog and levemir, monitor lab and mental status, wound care , purree diet as missing denture trying to reach family Kimberli [phone] reached 06/30, discussed high risk and code status Darrian Lara MD Jul 01, 2020 12:53
[2020-07-01] MEDS: Enoxaparin 100mg Inj SUBQ SCH (13:52)
[2020-07-01 16:00] VITALS: BP_SYST 111; BP_SYST 135; BP_DIAS 57; BP_DIAS 86
--- NOTE | 2020-07-01 17:26 | Infectious Diseases Prog Note ---
Assessment/Plan Assessment/Plan ASSESSMENT AND PLAN: 1. covid-19 infection with pna, less likely CAP, hypoxia or fevers, mild leukocytosis left heel/right great toe wounds, ? infected, ? osteomyelitis - dexamethasone for hypoxia, ARF limits remdesivir use but can give if fails steroids - pneumonia/infiltrates on chest x-ray likely covid related - hold off on anti-bacterials for now - x-ray of feet, consider podiatry evaluation - monitor for hypoxia and labs and chest x-ray as indicated 2. Acute kidney injury, elevated creatinine. 3. Diabetes. 4. Hypertension. 5. Diabetic ketoacidosis. 6. Anemia. 7. Diabetes and hypertension treatment per primary team. 8. Blood sugar treatment per primary team. 9. IV fluids. 10. The patient has no known drug allergies. 11. Social history is negative. 12. Family history is noncontributory. 13. MAR was noted. 14. Case discussed with RN. 15. The patient seen in ER. Subjective Constitutional: Reports: fatigue, other - O2 requirement less ; Denies: fever HEENT: Reports: congestion - less Respiratory: Reports: shortness of breath - less Cardiovascular: Denies: chest pain Gastrointestinal/Abdominal: Denies: nausea, vomiting, diarrhea Genitourinary: Reports: other - no ashraf Neurologic: Denies: headache Psychiatric: Denies: depression Skin: Denies: rash Hematologic: Denies: bleeding Musculoskeletal: Denies: pain Allergies: Coded Allergies: No Known Allergies (Unverified , 06/27/20) Objective Last 24 Hour Vital Signs Date Time Temp Pulse Resp B/P (MAP) Pulse Ox O2 Delivery O2 Flow Rate FiO2 07/01/20 12:00 92 07/01/20 12:00 97.5 96 20 138/92 (107) 94 07/01/20 09:00 Nasal Cannula 6.0 07/01/20 08:32 148/90 07/01/20 08:00 98 07/01/20 08:00 97.7 98 22 148/90 (109) 94 07/01/20 04:00 97.9 99 22 132/85 (101) 93 07/01/20 04:00 94 07/01/20 00:00 97 07/01/20 00:00 98.3 99 22 129/92 (104) 94 06/30/20 21:25 155/106 06/30/20 21:00 Non-Rebreather 15.0 06/30/20 20:00 98.5 105 24 155/106 (122) 94 06/30/20 20:00 104 Height (Feet): 6 Height (Inches): 2.00 Weight (Pounds): 201 General Appearance: no acute distress HEENT: atraumatic, anicteric, mucous membranes moist Respiratory/Chest: crackles/rales Cardiovascular: normal rate, regular rhythm, no gallop/murmur Abdomen: normal bowel sounds, soft, non tender, no organomegaly, non distended Genitourinary: other - no labs Extremities: no cyanosis Skin: no rash, ulcers - wounds reviewed - left heel and right foot great toe Neurologic/Psychiatric: plating equipment tender II-XII grossly normal, alert, responsive Lymphatic: no neck adenopathy Musculoskeletal: no effusion Chest x-ray - 06/28/20 - Procedure: XRAY Chest 1v Indication: Cough Technique: One view of the chest Comparison: 06/27/2020 Findings: Optimal exam currently; current exam also less heavily exposed. There are increased streaky peribronchovascular infiltrates in the left lung. There are also some atelectatic bands in the left midlung periphery which were evident previously. There are questionably streaky infiltrates in the right lung, as well as some atelectasis. This is probably unchanged allowing for differences in degree of inspiration and exposure technique Impression: Increasing left peripheral infiltrates, likely reflects increasing pneumonia. There are questionably minimal infiltrates on the right as well as some atelectasis Chest x-ray - 07/01/20 - Procedure: XRAY Chest 1v Indication: Shortness of breath Technique: One view of the chest Comparison: none Findings: Suboptimal inspiration. Left basilar infiltrate, right perihilar atelectasis and possible infiltrate are unchanged. Impression: Unchanged, over 2 days, findings as above. Microbiology Date/Time Source Procedure Growth Status 06/28/20 21:08 Nasal Nares Right - Final Complete 06/28/20 21:08 Nasal Nares Right - Final Complete 06/27/20 16:47 Urine,Clean Catch Urine Culture - Final Mixed Gram Positive Organism Complete Microbiology Date/Time Source Procedure Growth Status 06/28/20 21:08 Nasal Nares Right - Final Complete 06/28/20 21:08 Nasal Nares Right - Final Complete Laboratory Tests Test 06/30/20 17:24 07/01/20 05:00 07/01/20 14:02 Erythrocyte Sedimentation Rate 88 MM/HR (0-20) H D-Dimer 1.00 mg/L FEU (0.00-0.49) H Ferritin > 2000 NG/ML (8-388) H White Blood Count 7.5 K/UL (4.8-10.8) Red Blood Count 4.91 M/UL (4.70-6.10) Hemoglobin 12.9 G/DL (14.2-18.0) L Hematocrit 39.9 % (42.0-52.0) L Mean Corpuscular Volume 81 FL (80-99) Mean Corpuscular Hemoglobin 26.3 PG (27.0-31.0) L Mean Corpuscular Hemoglobin Concent 32.4 G/DL (32.0-36.0) Red Cell Distribution Width 16.2 % (11.6-14.8) H Platelet Count 157 K/UL (150-450) Mean Platelet Volume 8.1 FL (6.5-10.1) Neutrophils (%) (Auto) 80.6 % (45.0-75.0) H Lymphocytes (%) (Auto) 15.9 % (20.0-45.0) L Monocytes (%) (Auto) 3.2 % (1.0-10.0) Eosinophils (%) (Auto) 0.0 % (0.0-3.0) Basophils (%) (Auto) 0.3 % (0.0-2.0) Sodium Level 154 MMOL/L (136-145) H Potassium Level 4.8 MMOL/L (3.5-5.1) Chloride Level 121 MMOL/L (98-107) H Carbon Dioxide Level 25 MMOL/L (21-32) Anion Gap 8 mmol/L (5-15) Blood Urea Nitrogen 38 mg/dL (7-18) H Creatinine 2.1 MG/DL (0.55-1.30) H Estimat Glomerular Filtration Rate 32.5 mL/min (>60) Glucose Level 252 MG/DL (74-106) H Calcium Level 8.4 MG/DL (8.5-10.1) L Total Bilirubin 0.6 MG/DL (0.2-1.0) Aspartate Amino Transf (AST/SGOT) 62 U/L (15-37) H Alanine Aminotransferase (ALT/SGPT) 22 U/L (12-78) Alkaline Phosphatase 70 U/L (46-116) Total Protein 6.8 G/DL (6.4-8.2) Albumin 2.2 G/DL (3.4-5.0) L Globulin 4.6 g/dL Albumin/Globulin Ratio 0.5 (1.0-2.7) L Urine Random Sodium 46 mmol/L (20-110) Urine Creatinine 75.4 MG/DL (30.0-125.0) Current Medications Medications (Trade) Dose Ordered Sig/Td Route PRN Reason Start Time Stop Time Status Last Admin Dose Admin Acetaminophen (Tylenol) 650 mg Q4H PRN ORAL Mild Pain (Pain Scale 1-3) 06/27/20 13:30 07/27/20 13:29 06/27/20 21:11 Acetaminophen (Tylenol) 650 mg Q4H PRN ORAL fever 06/27/20 13:30 07/27/20 13:29 Albuterol Sulfate (Proventil MDI) 2 puff Q4H PRN INH Shortness of Breath 06/27/20 13:45 09/25/20 13:44 Aspirin (ASA) 81 mg DAILY ORAL 06/27/20 13:30 08/11/20 13:29 07/01/20 08:32 Barium Sulfate (Varibar Honey) 250 ml NOW PRN MC RAD 06/29/20 17:00 07/02/20 16:45 Barium Sulfate (Varibar [place]) 240 ml NOW PRN MC RAD 06/29/20 17:00 07/02/20 16:45 Barium Sulfate (Varibar Pudding) 230 ml NOW PRN MC RAD 06/29/20 17:00 07/02/20 16:45 Barium Sulfate (Varibar Thin Liquid powder) 148 gm NOW PRN MC RAD 06/29/20 17:00 07/02/20 16:45 Chlorhexidine Gluconate (Rosario-Hex 2%) 1 applic DAILY@1999 TOPIC 06/30/20 20:00 09/28/20 19:59 Dexamethasone Sodium Phosphate (Decadron 10mg/ ml Inj) 6 mg DAILY IV 06/30/20 12:00 07/09/20 12:00 07/01/20 08:33 Dextrose (Dextrose 50%) 25 ml Q30M PRN IV Hypoglycemia 06/27/20 13:30 09/25/20 13:29 Dextrose (Dextrose 50%) 50 ml Q30M PRN IV Hypoglycemia 06/27/20 13:30 09/25/20 13:29 Enoxaparin Sodium (Lovenox) 100 mg Q24H SUBQ 06/27/20 14:30 09/25/20 14:29 07/01/20 13:52 Famotidine (Pepcid I.v.) 20 mg Q12HR IVP 06/30/20 12:00 07/30/20 11:59 07/01/20 08:33 Insulin Aspart (NovoLOG) BEFORE MEALS AND HS SUBQ 06/27/20 16:30 09/25/20 16:29 07/01/20 16:43 Insulin Aspart (NovoLOG) 12 units NOVOTIAC SUBQ 07/01/20 16:50 09/29/20 16:49 07/01/20 16:44 Insulin Detemir (Levemir) 35 units QHS SUBQ 06/30/20 21:00 09/28/20 20:59 06/30/20 21:17 Losartan Potassium (Cozaar) 50 mg EVERY 12 HOURS ORAL 06/30/20 21:15 07/30/20 21:14 07/01/20 08:32 Magnesium Hydroxide (Mom) 30 ml HSPRN PRN ORAL Constipation 06/27/20 13:30 07/27/20 13:29 Nitroglycerin (Ntg) 0.4 mg Q5M PRN SL Prn Chest Pain 06/27/20 13:30 07/27/20 13:29 Ondansetron HCl (Zofran) 4 mg Q6H PRN IVP Nausea & Vomiting 06/27/20 13:30 07/27/20 13:29 06/30/20 17:50 Sodium 1,000 ml @ 75 mls/hr [id number] IV 06/29/20 10:00 07/29/20 09:59 07/01/20 16:35 Tamsulosin HCl (Flomax) 0.8 mg BEDTIME ORAL 06/30/20 21:00 07/30/20 20:59 06/30/20 21:24 Sangeetha Roger MD Jul 01, 2020 17:25
--- NOTE | 2020-07-01 17:26 | NUR ---
NURSE NOTES: Left message on voicemail of Dr. Yuan Pineda covering for Dr. Darrian Lara reporting patient had large amount of liquid tarry stool.
[2020-07-01] MEDS ORDERED: Pantoprazole 80 MG in NS 250 ML IV SCH (17:45)
--- NOTE | 2020-07-01 17:49 | NUR ---
NURSE NOTES: Received orders from Dr. Darrian Lara. Patient's sister, Kimberli, called while I was placing orders; I told her I would call her back after entering the orders. I called Kimberli back, however, it went to voicemail. I left her a message to call back.
[2020-07-01] MEDS ORDERED: TRAMADOL HCL50 MG ORAL (18:08)
[2020-07-01] MEDS ORDERED: GABAPENTIN800 MG ORAL (18:09)
[2020-07-01] MEDS ORDERED: MONTELUKAST SOD10 MG ORAL (18:12)
[2020-07-01] MEDS ORDERED: BACTRIM 400-801 EACH ORAL (18:13)
[2020-07-01 18:32] LABS: HEMATOCRIT 39.7 % (42.0-52.0); HEMOGLOBIN 12.4 G/DL (14.2-18.0); MEAN CORPUSCULAR VOLUME 83 FL (80-99); PLATELET COUNT 172 K/UL (150-450); RED BLOOD COUNT 4.79 M/UL (4.70-6.10); RED CELL DISTRIBUTION WIDTH 16.8 % (11.6-14.8); WHITE BLOOD COUNT 8.7 K/UL (4.8-10.8)
--- NOTE | 2020-07-01 19:46 | NUR ---
NURSE HAND-OFF REPORT: Important Events on Shift: Patient had several large tarry/melena loose stools. Patient reported missing dentures. Contacted nurse Maria G from 06/30/20 and unable to locate dentures. Patient's diet changed to CCHO low finely chopped, prefers chicken. Medication's reported by Kimberli (sister) and updated in medication reconciliation. Discontinued lovenox, protonix 40 mg IV Q12 hours, stat CBC and am labs CBC, CMP, CRP. Venous duplex ordered. Stool OB collected. Novolog sliding scale plus increase in scheduled from 10 units to 12 units. Oxygen at 6 liters nasal cannula, saturating at 94 percent. Patient Status: In no apparent distress. Diet: CCHO low finely chopped. Pending Orders: am labs, CBC, CMP, CRP. Pending Results/Labs:Stool OB. Pending MD notification:N/A Latest Vital Signs: Temperature 97.9 , Pulse 116 , B/P 135 /86 , Respiratory Rate 22 , O2 SAT 93 , Room Air, O2 Flow Rate 6.0 . Vital Sign Comment: N/A EKG Rhythm: Sinus Tachycardia Rhythm change?: N MD Notified?: - MD Response: Latest Estrada Fall Score: 55 Fall Risk: High Risk Safety Measures: Call light Within Reach, Bed Alarm Zone 2, Side Rails Side Rails x2, Bed position Low and Locked. Fall Precautions: Yellow Socks Yellow Gown Door Sign Patient Fall Education Report given to Telly Escobar RN.
[2020-07-01 20:00] VITALS: BP 126/80
[2020-07-01] MEDS: Dyna-Hex 2% Top Sol 2oz TOPIC SCH (20:00)
--- NOTE | 2020-07-01 20:07 | NUR ---
NURSE NOTES: Pt received from BRIANNE Root. Pt is resting comfortably in bed and denies any pain. Pt is A/Ox4 and irritable; pt is bedbound due to weakenss and BLE diabetic foot ulcers. Pt has cardiac monitoring SR and asymptomatic. Pt is breathing unlabored on 6LPM NC and asymptomatic. Pt has LWrist 22G and LAC 20G 1/2NS+KCL 20 mEq 75 ml/hr.Pt has FC patent and draining well to gravity. Bed is locked and in lowest position with call light within reach. Will continue to monitor.
[2020-07-01] MEDS: Tamsulosin 0.4mg cap ORAL SCH (20:52)
[2020-07-01] MEDS: Pantoprazole Inj IVP SCH (20:52)
[2020-07-01] MEDS: Levemir Flexpen SUBQ SCH (21:07)
[2020-07-02] VITALS: BP 133/87
--- NOTE | 2020-07-02 01:02 | Cardiology Progress Note ---
Subjective DATE OF SERVICE: Jul 01, 2020 Still withdrawn and lethargic On IVF Continued insulin titration Covid 19 isolation Objective Last 24 Hour Vital Signs Date Time Temp Pulse Resp B/P (MAP) Pulse Ox O2 Delivery O2 Flow Rate FiO2 07/02/20 00:00 97.7 98 20 133/87 (102) 98 07/02/20 00:00 90 07/01/20 21:00 Nasal Cannula 6.0 07/01/20 20:52 133/87 07/01/20 20:00 99.1 87 20 126/80 (95) 95 07/01/20 20:00 102 07/01/20 16:00 116 07/01/20 16:00 97.9 102 22 135/86 (102) 93 07/01/20 12:00 92 07/01/20 12:00 97.5 96 20 138/92 (107) 94 07/01/20 09:00 Nasal Cannula 6.0 07/01/20 08:32 148/90 07/01/20 08:00 98 07/01/20 08:00 97.7 98 22 148/90 (109) 94 07/01/20 04:00 97.9 99 22 132/85 (101) 93 07/01/20 04:00 94 ROS: unable to obtain HEENT: normal ENT inspection RHYTHM: NSR, ST LUNGS: bilateral rhonchi CARDIAC: normal rate, regular rhythm, normal S1 and S2 ABDOMEN: normal bowel sounds, soft, no organomegaly Laboratory Tests Test 07/01/20 05:00 07/01/20 14:02 07/01/20 18:00 07/01/20 18:20 White Blood Count 7.5 K/UL (4.8-10.8) 8.7 K/UL (4.8-10.8) Red Blood Count 4.91 M/UL (4.70-6.10) 4.79 M/UL (4.70-6.10) Hemoglobin 12.9 G/DL (14.2-18.0) L 12.4 G/DL (14.2-18.0) L Hematocrit 39.9 % (42.0-52.0) L 39.7 % (42.0-52.0) L Mean Corpuscular Volume 81 FL (80-99) 83 FL (80-99) Mean Corpuscular Hemoglobin 26.3 PG (27.0-31.0) L 25.9 PG (27.0-31.0) L Mean Corpuscular Hemoglobin Concent 32.4 G/DL (32.0-36.0) 31.3 G/DL (32.0-36.0) L Red Cell Distribution Width 16.2 % (11.6-14.8) H 16.8 % (11.6-14.8) H Platelet Count 157 K/UL (150-450) 172 K/UL (150-450) Mean Platelet Volume 8.1 FL (6.5-10.1) 8.1 FL (6.5-10.1) Neutrophils (%) (Auto) 80.6 % (45.0-75.0) H % (45.0-75.0) Lymphocytes (%) (Auto) 15.9 % (20.0-45.0) L % (20.0-45.0) Monocytes (%) (Auto) 3.2 % (1.0-10.0) % (1.0-10.0) Eosinophils (%) (Auto) 0.0 % (0.0-3.0) % (0.0-3.0) Basophils (%) (Auto) 0.3 % (0.0-2.0) % (0.0-2.0) Sodium Level 154 MMOL/L (136-145) H Potassium Level 4.8 MMOL/L (3.5-5.1) Chloride Level 121 MMOL/L (98-107) H Carbon Dioxide Level 25 MMOL/L (21-32) Anion Gap 8 mmol/L (5-15) Blood Urea Nitrogen 38 mg/dL (7-18) H Creatinine 2.1 MG/DL (0.55-1.30) H Estimat Glomerular Filtration Rate 32.5 mL/min (>60) Glucose Level 252 MG/DL (74-106) H Calcium Level 8.4 MG/DL (8.5-10.1) L Total Bilirubin 0.6 MG/DL (0.2-1.0) Aspartate Amino Transf (AST/SGOT) 62 U/L (15-37) H Alanine Aminotransferase (ALT/SGPT) 22 U/L (12-78) Alkaline Phosphatase 70 U/L (46-116) Total Protein 6.8 G/DL (6.4-8.2) Albumin 2.2 G/DL (3.4-5.0) L Globulin 4.6 g/dL Albumin/Globulin Ratio 0.5 (1.0-2.7) L Urine Random Sodium 46 mmol/L (20-110) Urine Creatinine 75.4 MG/DL (30.0-125.0) Stool Occult Blood Pending Differential Total Cells Counted 100 Neutrophils % (Manual) 82 % (45-75) H Lymphocytes % (Manual) 14 % (20-45) L Monocytes % (Manual) 4 % (1-10) Eosinophils % (Manual) 0 % (0-3) Basophils % (Manual) 0 % (0-2) Band Neutrophils 0 % (0-8) Platelet Estimate Adequate Platelet Morphology Normal Hypochromasia 1+ Anisocytosis 1+ Assessment/Plan Assessment/Plan COVID 19 PNA Dehydration Hypernatremia Acute coronary insuff Toxic encephalopathy Metabolic encephalopathy DKA Anti-platelet rx with ASA Hypotonic IVF Antivirals Steroids Anti-coagulation Isolation Taper O2 Titrate diabetic regimen [place] Rodriguez MD Jul 02, 2020 01:02
[2020-07-02 04:00] VITALS: BP 130/81
[2020-07-02 06:29] LABS: BASOPHILS % (AUTO) 1.2 % (0.0-2.0); HEMATOCRIT 39.4 % (42.0-52.0); LYMPHOCYTES % (AUTO) 12.7 % (20.0-45.0); MEAN CORPUSCULAR VOLUME 79 FL (80-99); MONOCYTES % (AUTO) 8.4 % (1.0-10.0); NEUTROPHILS % (AUTO) 77.8 % (45.0-75.0); PLATELET COUNT 187 K/UL (150-450); RED BLOOD COUNT 4.96 M/UL (4.70-6.10); RED CELL DISTRIBUTION WIDTH 16.8 % (11.6-14.8); WHITE BLOOD COUNT 9.7 K/UL (4.8-10.8)
[2020-07-02] MEDS: NovoLOG Insulin Flexpen SUBQ SCH ×7 (06:40→21:02)
[2020-07-02] MEDS: 1/2NS w/KCl 20mEq 1000ml 1,000 ML IV SCH (06:41)
[2020-07-02 06:56] LABS: ALBUMIN 2.2 G/DL (3.4-5.0); ALBUMIN/GLOBULIN RATIO 0.5 (1.0-2.7); BILIRUBIN,TOTAL 0.6 MG/DL (0.2-1.0); CALCIUM 8.5 MG/DL (8.5-10.1); CREATININE 2.1 MG/DL (0.55-1.30); POTASSIUM 4.3 MMOL/L (3.5-5.1)
--- NOTE | 2020-07-02 07:02 | NUR ---
NURSE HAND-OFF REPORT: Important Events on Shift:Pt continued scheduled medications. Pt has dentures at bedside. Patient Status: Stable Diet: CCHO Low Finely Chopped Pending Orders: Pending Results/Labs:AM labs Pending MD notification: Latest Vital Signs: Temperature 97.5 , Pulse 90 , B/P 130 /81 , Respiratory Rate 18 , O2 SAT 94 , Room Air, O2 Flow Rate 6.0 . Vital Sign Comment: VSS EKG Rhythm: Sinus Tachycardia Rhythm change?: N MD Notified?: - MD Response: Latest Estrada Fall Score: 55 Fall Risk: High Risk Safety Measures: Call light Within Reach, Bed Alarm Zone 2, Side Rails Side Rails x2, Bed position Low and Locked. Fall Precautions: Yellow Socks Yellow Gown Door Sign Patient Fall Education Report given to BRIANNE Bolden.
[2020-07-02 08:00] VITALS: BP 140/86
--- NOTE | 2020-07-02 09:06 | NUR ---
RD ASSESSMENT & RECOMMENDATIONS SEE CARE ACTIVITY FOR COMPLETE ASSESSMENT DAILY ESTIMATED NEEDS: Needs based on DM, wound, pulmonary 91.4kg 25-30 kcals/kg 2111-2531 total kcals 1.25-2 g protein/kg 114-183 g total protein 25-30 mL/kg 2613-7838 total fluid mLs NUTRITION DIAGNOSIS: Increased pro needs needs r/t wound healing as evidenced by advanced diabetic L heel wound, full eval pending, adm w. A1C 10.7, BG 697, uglu 4+. CURRENT DIET: CCHO LOW ms finely chopped PO DIET RECOMMENDATIONS: CCHO MED + DOUBLE PROTEIN PORTIONS ENTERAL NUTRITION RECOMMENDATIONS: If part of POC, rec non oral feeds to meet est kcal/pro needs ADDITIONAL RECOMMENDATIONS: 1) Glucerna 1 tetra TID w/ meals 2) Wound care: Add MARIO BID, Vit C 500mg BID, MVI w/ min qdaily Pending MD dowd 3) Non oral feeds if pt is unble to tolerate oral po 4) Maintain accurate bed scale weights
[2020-07-02] MEDS: Pantoprazole Inj IVP SCH ×2 (09:10→20:46)
[2020-07-02] MEDS: Losartan 50mg tab ORAL SCH ×2 (09:10→20:48)
[2020-07-02] MEDS: Aspirin Baby 81mg ORAL SCH (09:10)
[2020-07-02] MEDS: dexAMETHasone 10mg/ml Inj IV SCH (09:10)
--- NOTE | 2020-07-02 10:22 | General Progress Note ---
Subjective ROS Limited/Unobtainable: Yes Allergies: Coded Allergies: No Known Allergies (Unverified , 06/27/20) Objective Last 24 Hour Vital Signs Date Time Temp Pulse Resp B/P (MAP) Pulse Ox O2 Delivery O2 Flow Rate FiO2 07/02/20 09:10 130/81 07/02/20 08:35 Nasal Cannula 6.0 07/02/20 04:00 97.5 90 18 130/81 (97) 94 07/02/20 04:00 85 07/02/20 00:00 97.7 98 20 133/87 (102) 98 07/02/20 00:00 90 07/01/20 21:00 Nasal Cannula 6.0 07/01/20 20:52 133/87 07/01/20 20:00 99.1 87 20 126/80 (95) 95 07/01/20 20:00 102 07/01/20 16:00 116 07/01/20 16:00 97.9 102 22 135/86 (102) 93 07/01/20 12:00 92 07/01/20 12:00 97.5 96 20 138/92 (107) 94 Intake and Output 07/01/20 07/02/20 19:00 07:00 Intake Total 1065 ml Output Total 1500 ml 1700 ml Balance -435 ml -1700 ml Intake Oral 240 ml IV Total 825 ml Output Urine Total 800 ml 1700 ml Stool Total 700 ml # Voids 1 # Bowel Movements 6 4 Laboratory Tests 07/01/20 14:02: Urine Random Sodium 46, Urine Creatinine 75.4 07/01/20 18:00: Stool Occult Blood Positive 07/01/20 18:20: White Blood Count 8.7, Red Blood Count 4.79, Hemoglobin 12.4L, Hematocrit 39.7L, Mean Corpuscular Volume 83, Mean Corpuscular Hemoglobin 25.9L, Mean Corpuscular Hemoglobin Concent 31.3L, Red Cell Distribution Width 16.8H, Platelet Count 172, Mean Platelet Volume 8.1, Neutrophils (%) (Auto) , Lymphocytes (%) (Auto) , Monocytes (%) (Auto) , Eosinophils (%) (Auto) , Basophils (%) (Auto) , Differential Total Cells Counted 100, Neutrophils % (Manual) 82H, Lymphocytes % (Manual) 14L, Monocytes % (Manual) 4, Eosinophils % (Manual) 0, Basophils % (Manual) 0, Band Neutrophils 0, Platelet Estimate Adequate, Platelet Morphology Normal, Hypochromasia 1+, Anisocytosis 1+ 07/02/20 05:51: POC Whole Blood Glucose 187H 07/02/20 06:07: White Blood Count 9.7, Red Blood Count 4.96, Hemoglobin 13.0L, Hematocrit 39.4L, Mean Corpuscular Volume 79L, Mean Corpuscular Hemoglobin 26.2L, Mean Corpuscular Hemoglobin Concent 32.9, Red Cell Distribution Width 16.8H, Platelet Count 187, Mean Platelet Volume 7.7, Neutrophils (%) (Auto) 77.8H, Lymphocytes (%) (Auto) 12.7L, Monocytes (%) (Auto) 8.4, Eosinophils (%) (Auto) 0.0, Basophils (%) (Auto) 1.2, Sodium Level 145, Potassium Level 4.3, Chloride Level 112H, Carbon Dioxide Level 28, Anion Gap 5, Blood Urea Nitrogen 39H, Creatinine 2.1H, Estimat Glomerular Filtration Rate 32.5, Glucose Level 238H, Calcium Level 8.5, Total Bilirubin 0.6, Aspartate Amino Transf (AST/SGOT) 65H, Alanine Aminotransferase (ALT/SGPT) 20, Alkaline Phosphatase 71, C-Reactive Protein, Quantitative [Pending], Total Protein 6.8, Albumin 2.2L, Globulin 4.6, Albumin/Globulin Ratio 0.5L Height (Feet): 6 Height (Inches): 2.00 Weight (Pounds): 201 General Appearance: no apparent distress, alert, confused EENT: normal ENT inspection Neck: normal alignment Cardiovascular: normal rate Respiratory/Chest: lungs clear Abdomen: non tender, soft Edema: no edema noted Arm (L), no edema noted Arm (R), no edema noted Leg (L), no edema noted Leg (R), no edema noted Pedal (L), no edema noted Pedal (R), no edema noted Generalized Neurologic: disoriented Skin: other - foot ulcers Assessment/Plan Problem List: (1) DKA (diabetic ketoacidoses) ICD Codes: E11.10 - Type 2 diabetes mellitus with ketoacidosis without coma SNOMED: 84585801, 595565616 (2) 2019 novel coronavirus detected ICD Codes: U07.1 - COVID-19 SNOMED: 6873533099785336 (3) Dysphagia ICD Codes: R13.10 - Dysphagia, unspecified SNOMED: 46633021, 547803935 (4) Dehydration ICD Codes: E86.0 - Dehydration SNOMED: 62345423 (5) Hypernatremia ICD Codes: E87.0 - Hyperosmolality and hypernatremia SNOMED: 157469557 (6) Metabolic encephalopathy ICD Codes: G93.41 - Metabolic encephalopathy SNOMED: 19258225 (7) Diabetic foot ulcer ICD Codes: E11.621 - Type 2 diabetes mellitus with foot ulcer; L97.509 - Non- pressure chronic ulcer of other part of unspecified foot with unspecified severity SNOMED: 68541906, 180848099 (8) Urinary retention due to benign prostatic hyperplasia ICD Codes: N40.1 - Benign prostatic hyperplasia with lower urinary tract symptoms; R33.8 - Other retention of urine SNOMED: 732372404, 056286928, 562668359008256 Assessment/Plan: hydration, hypotonic iv, adjusted, increase novolog and levemir, monitor lab and mental status, wound care , puree diet as missing denture trying to reach family Kimberli [phone] reached 06/30, discussed high risk and code status Darrian Lara MD Jul 02, 2020 10:22
--- NOTE | 2020-07-02 11:08 | Pulmonology Progress Note ---
Subjective ROS Limited/Unobtainable: Yes Constitutional: Reports: fatigue, other - O2 requirement less ; Denies: fever Gastrointestinal/Abdominal: Denies: nausea, vomiting, diarrhea Psychiatric: Denies: depression Skin: Denies: rash Musculoskeletal: Denies: pain Allergies: Coded Allergies: No Known Allergies (Unverified , 06/27/20) Subjective on 6 L O2 via NC no CP, no SOB no fevers no leukocytosis CRP elevated Objective Last 24 Hour Vital Signs Date Time Temp Pulse Resp B/P (MAP) Pulse Ox O2 Delivery O2 Flow Rate FiO2 07/02/20 09:10 130/81 07/02/20 08:35 Nasal Cannula 6.0 07/02/20 04:00 97.5 90 18 130/81 (97) 94 07/02/20 04:00 85 07/02/20 00:00 97.7 98 20 133/87 (102) 98 07/02/20 00:00 90 07/01/20 21:00 Nasal Cannula 6.0 07/01/20 20:52 133/87 07/01/20 20:00 99.1 87 20 126/80 (95) 95 07/01/20 20:00 102 07/01/20 16:00 116 07/01/20 16:00 97.9 102 22 135/86 (102) 93 07/01/20 12:00 92 07/01/20 12:00 97.5 96 20 138/92 (107) 94 Intake and Output 07/01/20 07/02/20 19:00 07:00 Intake Total 1065 ml Output Total 1500 ml 1700 ml Balance -435 ml -1700 ml Intake Oral 240 ml IV Total 825 ml Output Urine Total 800 ml 1700 ml Stool Total 700 ml # Voids 1 # Bowel Movements 6 4 Objective General Appearance: no apparent distress, alert Lines, tubes and drains: peripheral HEENT: normocephalic, atraumatic, anicteric, mucous membranes moist, O2 6L via NC Neck: non-tender, normal alignment, supple Respiratory/Chest: lungs clear, no respiratory distress, no accessory muscle use Cardiovascular/Chest: regular SR Abdomen: normal bowel sounds, non tender, soft Extremities: normal range of motion, no calf tenderness, normal capillary refill Skin Exam: L foot ulcer Neurologic: no motor/sensory deficits, alert, oriented x 3, responsive Musculoskeletal: normal muscle bulk Laboratory Tests 07/01/20 14:02: Urine Random Sodium 46, Urine Creatinine 75.4 07/01/20 18:00: Stool Occult Blood Positive 07/01/20 18:20: White Blood Count 8.7, Red Blood Count 4.79, Hemoglobin 12.4L, Hematocrit 39.7L, Mean Corpuscular Volume 83, Mean Corpuscular Hemoglobin 25.9L, Mean Corpuscular Hemoglobin Concent 31.3L, Red Cell Distribution Width 16.8H, Platelet Count 172, Mean Platelet Volume 8.1, Neutrophils (%) (Auto) , Lymphocytes (%) (Auto) , Monocytes (%) (Auto) , Eosinophils (%) (Auto) , Basophils (%) (Auto) , Diff erential Total Cells Counted 100, Neutrophils % (Manual) 82H, Lymphocytes % (Manual) 14L, Monocytes % (Manual) 4, Eosinophils % (Manual) 0, Basophils % (Manual) 0, Band Neutrophils 0, Platelet Estimate Adequate, Platelet Morphology Normal, Hypochromasia 1+, Anisocytosis 1+ 07/02/20 05:51: POC Whole Blood Glucose 187H 07/02/20 06:07: White Blood Count 9.7, Red Blood Count 4.96, Hemoglobin 13.0L, Hematocrit 39.4L, Mean Corpuscular Volume 79L, Mean Corpuscular Hemoglobin 26.2L, Mean Corpuscular Hemoglobin Concent 32.9, Red Cell Distribution Width 16.8H, Platelet Count 187, Mean Platelet Volume 7.7, Neutrophils (%) (Auto) 77.8H, Lymphocytes (%) (Auto) 12.7L, Monocytes (%) (Auto) 8.4, Eosinophils (%) (Auto) 0.0, Basophils (%) (Auto) 1.2, Sodium Level 145, Potassium Level 4.3, Chloride Level 112H, Carbon Dioxide Level 28, Anion Gap 5, Blood Urea Nitrogen 39H, Creatinine 2.1H, Estimat Glomerular Filtration Rate 32.5, Glucose Level 238H, Calcium Level 8.5, Total Bilirubin 0.6, Aspartate Amino Transf (AST/SGOT) 65H, Alanine Aminotransferase (ALT/SGPT) 20, Alkaline Phosphatase 71, C-Reactive Protein, Quantitative [Pending], Total Protein 6.8, Albumin 2.2L, Globulin 4.6, Albumin/Globulin Ratio 0.5L Current Medications Medications (Trade) Dose Ordered Sig/Dt Route PRN Reason Start Time Stop Time Status Last Admin Dose Admin Acetaminophen (Tylenol) 650 mg Q4H PRN ORAL Mild Pain (Pain Scale 1-3) 06/27/20 13:30 07/27/20 13:29 06/27/20 21:11 Acetaminophen (Tylenol) 650 mg Q4H PRN ORAL fever 06/27/20 13:30 07/27/20 13:29 Albuterol Sulfate (Proventil MDI) 2 puff Q4H PRN INH Shortness of Breath 06/27/20 13:45 09/25/20 13:44 Aspirin (ASA) 81 mg DAILY ORAL 06/27/20 13:30 08/11/20 13:29 07/02/20 09:10 Barium Sulfate (Varibar Honey) 250 ml NOW PRN MC RAD 06/29/20 17:00 07/02/20 16:45 Barium Sulfate (Varibar [place]) 240 ml NOW PRN MC RAD 06/29/20 17:00 07/02/20 16:45 Barium Sulfate (Varibar Pudding) 230 ml NOW PRN MC RAD 06/29/20 17:00 07/02/20 16:45 Barium Sulfate (Varibar Thin Liquid powder) 148 gm NOW PRN MC RAD 06/29/20 17:00 07/02/20 16:45 Chlorhexidine Gluconate (Rosario-Hex 2%) 1 applic DAILY@2000 TOPIC 06/30/20 20:00 09/28/20 19:59 Dexamethasone Sodium Phosphate (Decadron 10mg/ ml Inj) 6 mg DAILY IV 06/30/20 12:00 07/09/20 12:00 07/02/20 09:10 Dextrose (Dextrose 50%) 25 ml Q30M PRN IV Hypoglycemia 06/27/20 13:30 09/25/20 13:29 Dextrose (Dextrose 50%) 50 ml Q30M PRN IV Hypoglycemia 06/27/20 13:30 09/25/20 13:29 Famotidine (Pepcid I.v.) 20 mg Q12HR IVP 06/30/20 12:00 07/30/20 11:59 07/02/20 09:10 Insulin Aspart (NovoLOG) BEFORE MEALS AND HS SUBQ 06/27/20 16:30 09/25/20 16:29 07/02/20 06:40 Insulin Aspart (NovoLOG) 16 units NOVOTIAC SUBQ 07/02/20 11:50 09/30/20 11:49 Insulin Detemir (Levemir) 35 units QHS SUBQ 06/30/20 21:00 09/28/20 20:59 07/01/20 21:07 Losartan Potassium (Cozaar) 50 mg EVERY 12 HOURS ORAL 06/30/20 21:15 07/30/20 21:14 07/02/20 09:10 Magnesium Hydroxide (Mom) 30 ml HSPRN PRN ORAL Constipation 06/27/20 13:30 07/27/20 13:29 Nitroglycerin (Ntg) 0.4 mg Q5M PRN SL Prn Chest Pain 06/27/20 13:30 07/27/20 13:29 Ondansetron HCl (Zofran) 4 mg Q6H PRN IVP Nausea & Vomiting 06/27/20 13:30 07/27/20 13:29 06/30/20 17:50 Pantoprazole (Protonix) 40 mg EVERY 12 HOURS IVP 07/01/20 21:00 07/31/20 20:59 07/02/20 09:10 Sodium 1,000 ml @ 50 mls/hr Q20H IV 06/29/20 10:00 07/29/20 09:59 07/02/20 06:41 Tamsulosin HCl (Flomax) 0.8 mg BEDTIME ORAL 06/30/20 21:00 07/30/20 20:59 07/01/20 20:52 Assessment/Plan Assessment/Plan ASSESSMENT COVID 19 DKA Acute renal failure Hyperkalemia DM HTN Hypernatremia Elevated troponin, likely troponin leak 2 ARF PLAN OF CARE tele isolation Date of sx onset: 4 days ago prior to ED presentation Positive test: 06/27/20 O2 NRM-NC 6L - titrate to keep sat > 92% HFA prn DEX Day #3 ( 06/30 - ) started given developed hypoxia REM not a candidate given ARF a/c LMWH get venous Duplex BLE D dimer 0,82, LDH 561, ferritin >2000 Trend CRP 62.3- 111.7 CXR 07/01 Left basilar infiltrate, right perihilar atelectasis and possible infiltrate unchanged. abx per ID recs -> currently off abx hydration and BS management - per primary anion gap closed ; off insulin gtt BS management per primary HgA1c -10.7, not at goal hypoglycemia protocol diabetic diet and diabetic teaching creat trending down, hyper K resolved 2 nd troponin mildly elevated likely troponin leak 2 to ARF cardio follows monitor volumes and renal function fup with consultants recs FC case discussed and evaluated by supervising physician Sophia Musa NP Jul 02, 2020 11:08
[2020-07-02 12:00] VITALS: BP 128/80
--- NOTE | 2020-07-02 12:03 | Consultation ---
History of Present Illness General Date patient seen: Jul 02, 2020 Reason for Hospitalization: Abnormal Labs Present Illness HPI This is a very pleasant 59-year-old male with multiple medical comorbidities who is currently admitted [facility] identified to have bilateral lower extremity wounds. Patient states for 14 years he has had wounds on his bilateral feet ankles and legs and has had over 40 surgeries in such. For this. States he has a home health nurse that visits him regularly and a physician at [facility] who cares for him and his wounds in outpatient setting. During admission surgery called to evaluate assist with care and management while in hospital given the extent of patient's wounds. Patient seen patient evaluate chart reviewed. States he currently feels well. Allergies: Coded Allergies: No Known Allergies (Unverified , 06/27/20) COVID-19 Screening Contact w/high risk pt: No Experienced COVID-19 symptoms?: Yes Coronavirus symptoms experienc: Muscle or Body Aches, Nausea/Vomiting, Diarrhea Medication History Scheduled Gabapentin* (Gabapentin*), 800 MG ORAL THREE TIMES A DAY, (Reported) Sulfamethoxazole/Trimethoprim (Bactrim 400-80 Mg Tablet*), 1 TAB ORAL TWICE A DAY, (Reported) Scheduled PRN Montelukast Sodium* (Montelukast Sodium*), 10 MG ORAL QHS PRN for Shortness of Breath, (Reported) Tramadol Hcl* (Ultram*), 50 MG ORAL Q6H PRN for For Pain, (Reported) Patient History History Provided By: Medical Record, PMD Healthcare decision maker Resuscitation status Advanced Directive on File Past Medical/Surgical History Past Medical/Surgical History: (1) 2019 novel coronavirus detected (2) DKA (diabetic ketoacidoses) (3) Dehydration (4) Dysphagia (5) Hypernatremia (6) Metabolic encephalopathy (7) Diabetic foot ulcer (8) Urinary retention due to benign prostatic hyperplasia Review of Systems Review of Symptoms General ROS: no weight loss or fever Psychological ROS: no depression or mood changes, no memory loss Ophthalmic ROS: no visual changes or eye irritation ENT ROS: no nasal congestion, hearing loss, dizziness Allergy and Immunology ROS: no allergic symptoms or urticaria Hematological and Lymphatic ROS: no swollen glands, unusual bleeding or bruising Endocrine ROS: no polyuria, polydipsia, weight changes, temperature intolerance Respiratory ROS: no cough, shortness of breath, or wheezing Cardiovascular ROS: no chest pain or dyspnea on exertion Gastrointestinal ROS: denies abdominal pain, bright red blood in stool. Musculoskeletal ROS: no myalgias or arthralgias Neurological ROS: no TIA or stroke symptoms Dermatological ROS: no new or changing skin lesions, rashes or pruritis Physical Exam Physical Exam General appearance: alert, cooperative, no distress, appears stated age Head: Normocephalic, without obvious abnormality, atraumatic Eyes: conjunctivae/corneas clear. PERRL, EOM's intact. Fundi benign Throat: Lips, mucosa, and tongue normal. Teeth and gums normal Neck: supple, symmetrical, trachea midline, no adenopathy, thyroid: not enlarged, symmetric, no tenderness/mass/nodules, no carotid bruit and no JVD Lungs: clear to auscultation bilaterally Heart: regular rate and rhythm, S1, S2 normal, no murmur, click, rub or gallop Abdomen: soft, non-tender. Bowel sounds normal. No masses, no organomegaly Extremities: extremities see below Pulses: 2+ and symmetric Skin: Skin color, texture, turgor normal. No rashes or lesions Neurologic: Grossly normal Last 24 Hour Vital Signs Date Time Temp Pulse Resp B/P (MAP) Pulse Ox O2 Delivery O2 Flow Rate FiO2 07/02/20 09:10 130/81 07/02/20 08:35 Nasal Cannula 6.0 07/02/20 04:00 97.5 90 18 130/81 (97) 94 07/02/20 04:00 85 07/02/20 00:00 97.7 98 20 133/87 (102) 98 07/02/20 00:00 90 07/01/20 21:00 Nasal Cannula 6.0 07/01/20 20:52 133/87 07/01/20 20:00 99.1 87 20 126/80 (95) 95 07/01/20 20:00 102 07/01/20 16:00 116 07/01/20 16:00 97.9 102 22 135/86 (102) 93 Intake and Output 07/01/20 07/02/20 19:00 07:00 Intake Total 1065 ml Output Total 1500 ml 1700 ml Balance -435 ml -1700 ml Intake Oral 240 ml IV Total 825 ml Output Urine Total 800 ml 1700 ml Stool Total 700 ml # Voids 1 # Bowel Movements 6 4 Laboratory Tests Test 07/01/20 14:02 07/01/20 18:00 07/01/20 18:20 07/02/20 05:51 Urine Random Sodium 46 mmol/L (20-110) Urine Creatinine 75.4 MG/DL (30.0-125.0) Stool Occult Blood Positive (NEGATIVE) White Blood Count 8.7 K/UL (4.8-10.8) Red Blood Count 4.79 M/UL (4.70-6.10) Hemoglobin 12.4 G/DL (14.2-18.0) L Hematocrit 39.7 % (42.0-52.0) L Mean Corpuscular Volume 83 FL (80-99) Mean Corpuscular Hemoglobin 25.9 PG (27.0-31.0) L Mean Corpuscular Hemoglobin Concent 31.3 G/DL (32.0-36.0) L Red Cell Distribution Width 16.8 % (11.6-14.8) H Platelet Count 172 K/UL (150-450) Mean Platelet Volume 8.1 FL (6.5-10.1) Neutrophils (%) (Auto) % (45.0-75.0) Lymphocytes (%) (Auto) % (20.0-45.0) Monocytes (%) (Auto) % (1.0-10.0) Eosinophils (%) (Auto) % (0.0-3.0) Basophils (%) (Auto) % (0.0-2.0) Differential Total Cells Counted 100 Neutrophils % (Manual) 82 % (45-75) H Lymphocytes % (Manual) 14 % (20-45) L Monocytes % (Manual) 4 % (1-10) Eosinophils % (Manual) 0 % (0-3) Basophils % (Manual) 0 % (0-2) Band Neutrophils 0 % (0-8) Platelet Estimate Adequate Platelet Morphology Normal Hypochromasia 1+ Anisocytosis 1+ POC Whole Blood Glucose 187 MG/DL (74-106) H Test 07/02/20 06:07 White Blood Count 9.7 K/UL (4.8-10.8) Red Blood Count 4.96 M/UL (4.70-6.10) Hemoglobin 13.0 G/DL (14.2-18.0) L Hematocrit 39.4 % (42.0-52.0) L Mean Corpuscular Volume 79 FL (80-99) L Mean Corpuscular Hemoglobin 26.2 PG (27.0-31.0) L Mean Corpuscular Hemoglobin Concent 32.9 G/DL (32.0-36.0) Red Cell Distribution Width 16.8 % (11.6-14.8) H Platelet Count 187 K/UL (150-450) Mean Platelet Volume 7.7 FL (6.5-10.1) Neutrophils (%) (Auto) 77.8 % (45.0-75.0) H Lymphocytes (%) (Auto) 12.7 % (20.0-45.0) L Monocytes (%) (Auto) 8.4 % (1.0-10.0) Eosinophils (%) (Auto) 0.0 % (0.0-3.0) Basophils (%) (Auto) 1.2 % (0.0-2.0) Sodium Level 145 MMOL/L (136-145) Potassium Level 4.3 MMOL/L (3.5-5.1) Chloride Level 112 MMOL/L (98-107) H Carbon Dioxide Level 28 MMOL/L (21-32) Anion Gap 5 mmol/L (5-15) Blood Urea Nitrogen 39 mg/dL (7-18) H Creatinine 2.1 MG/DL (0.55-1.30) H Estimat Glomerular Filtration Rate 32.5 mL/min (>60) Glucose Level 238 MG/DL (74-106) H Calcium Level 8.5 MG/DL (8.5-10.1) Total Bilirubin 0.6 MG/DL (0.2-1.0) Aspartate Amino Transf (AST/SGOT) 65 U/L (15-37) H Alanine Aminotransferase (ALT/SGPT) 20 U/L (12-78) Alkaline Phosphatase 71 U/L (46-116) C-Reactive Protein, Quantitative Pending Total Protein 6.8 G/DL (6.4-8.2) Albumin 2.2 G/DL (3.4-5.0) L Globulin 4.6 g/dL Albumin/Globulin Ratio 0.5 (1.0-2.7) L Height (Feet): 6 Height (Inches): 2.00 Weight (Pounds): 201 Medications Current Medications Medications (Trade) Dose Ordered Sig/Td Route PRN Reason Start Time Stop Time Status Last Admin Dose Admin Acetaminophen (Tylenol) 650 mg Q4H PRN ORAL Mild Pain (Pain Scale 1-3) 06/27/20 13:30 07/27/20 13:29 06/27/20 21:11 Acetaminophen (Tylenol) 650 mg Q4H PRN ORAL fever 06/27/20 13:30 07/27/20 13:29 Albuterol Sulfate (Proventil MDI) 2 puff Q4H PRN INH Shortness of Breath 06/27/20 13:45 09/25/20 13:44 Aspirin (ASA) 81 mg DAILY ORAL 06/27/20 13:30 08/11/20 13:29 07/02/20 09:10 Barium Sulfate (Varibar Honey) 250 ml NOW PRN MC RAD 06/29/20 17:00 07/02/20 16:45 Barium Sulfate (Varibar [place]) 240 ml NOW PRN MC RAD 06/29/20 17:00 07/02/20 16:45 Barium Sulfate (Varibar Pudding) 230 ml NOW PRN MC RAD 06/29/20 17:00 07/02/20 16:45 Barium Sulfate (Varibar Thin Liquid powder) 148 gm NOW PRN MC RAD 06/29/20 17:00 07/02/20 16:45 Chlorhexidine Gluconate (Rosario-Hex 2%) 1 applic DAILY@2000 TOPIC 06/30/20 20:00 09/28/20 19:59 Dexamethasone Sodium Phosphate (Decadron 10mg/ ml Inj) 6 mg DAILY IV 06/30/20 12:00 07/09/20 12:00 07/02/20 09:10 Dextrose (Dextrose 50%) 25 ml Q30M PRN IV Hypoglycemia 06/27/20 13:30 09/25/20 13:29 Dextrose (Dextrose 50%) 50 ml Q30M PRN IV Hypoglycemia 06/27/20 13:30 09/25/20 13:29 Famotidine (Pepcid I.v.) 20 mg Q12HR IVP 06/30/20 12:00 07/30/20 11:59 07/02/20 09:10 Insulin Aspart (NovoLOG) BEFORE MEALS AND HS SUBQ 06/27/20 16:30 09/25/20 16:29 07/02/20 06:40 Insulin Aspart (NovoLOG) 16 units NOVOTIAC SUBQ 07/02/20 11:50 09/30/20 11:49 Insulin Detemir (Levemir) 35 units QHS SUBQ 06/30/20 21:00 09/28/20 20:59 07/01/20 21:07 Losartan Potassium (Cozaar) 50 mg EVERY 12 HOURS ORAL 06/30/20 21:15 07/30/20 21:14 07/02/20 09:10 Magnesium Hydroxide (Mom) 30 ml HSPRN PRN ORAL Constipation 06/27/20 13:30 07/27/20 13:29 Nitroglycerin (Ntg) 0.4 mg Q5M PRN SL Prn Chest Pain 06/27/20 13:30 07/27/20 13:29 Ondansetron HCl (Zofran) 4 mg Q6H PRN IVP Nausea & Vomiting 06/27/20 13:30 07/27/20 13:29 06/30/20 17:50 Pantoprazole (Protonix) 40 mg EVERY 12 HOURS IVP 07/01/20 21:00 07/31/20 20:59 07/02/20 09:10 Sodium 1,000 ml @ 50 mls/hr Q20H IV 06/29/20 10:00 07/29/20 09:59 07/02/20 06:41 Tamsulosin HCl (Flomax) 0.8 mg BEDTIME ORAL 06/30/20 21:00 07/30/20 20:59 07/01/20 20:52 Assessment/Plan Problem List: (1) 2019 novel coronavirus detected Assessment & Plan: as per pulm ID onput pcp ICD Codes: U07.1 - COVID-19 SNOMED: 6892420424912144 (2) DKA (diabetic ketoacidoses) ICD Codes: E11.10 - Type 2 diabetes mellitus with ketoacidosis without coma SNOMED: 38539054, 339169005 (3) Dehydration ICD Codes: E86.0 - Dehydration SNOMED: 02912827 (4) Dysphagia ICD Codes: R13.10 - Dysphagia, unspecified SNOMED: 91878149, 108763162 (5) Hypernatremia ICD Codes: E87.0 - Hyperosmolality and hypernatremia SNOMED: 389364568 (6) Metabolic encephalopathy ICD Codes: G93.41 - Metabolic encephalopathy SNOMED: 09459225 (7) Diabetic foot ulcer Assessment & Plan: Pt presented on admission with Multiple Ulcers R and L Feet. Full thickness stage 4 Ulcer plantar R 1st Metatarsal. Base of wound mixed necrosis and slough. Bone is palpable(L)2.5cm x (W)1.8cm x (D)0.4cm.Thick- callused borders noted. No erythema, induration or fluctuance periwound. Full Thickness stage 4 Ulcer Plantar L Foot (L)9cm x (W)3.5cmx (D)1.1cm, Under mined borders clockwise 6-9o'clock with tunneling at 7 o'clock by 4cm. Base of wound is génesis. Wound is malodorous with moderate amt of green exudate. Edges are semi-detached, and callused with an area of necrosis noted distally along borders. Distally,but in close Proximity is an area of dry eschar (L)1.5cm x (W)3.8cm.No erythema, induration or fluctuance periwound.Rocker foot Bottom noted L foot. Both heels are dry and callused. No evidence of skin breakdown sacrum. Tx plan: Cleanse wound plantar R 1st Metatarsal with Saline. Apply TheraHoney. Apply Cavilon Skin Barrier Periwound. Cover with Optifoam Daily and prn. Cleanse wound Plantar L Foot with Saline.Apply Therahoney. Apply Maxosrb Extra(Calcium Alginate) Apply Cavilon periwound ,Cover with ABD pad and wrap with Kerlix Daily and prn. Apply Betadine to Necrotic area Plantar L foot Daily and prn. Apply Moisture Barrier Paste to Sacrum. Cover with Optifoam drsg. Change every 3 days and prn. Reposition at least every 2 hours or as tolerated. Elevate both lower extremities with pillows with both heels floated off mattress . DAILY ESTIMATED NEEDS: Needs based on DM, wound, pulmonary 91.4kg 25-30 kcals/kg 3075-6261 total kcals 1.25-2 g protein/kg 114-183 g total protein 25-30 mL/kg 6415-0842 total fluid mLs NUTRITION DIAGNOSIS: Increased pro needs needs r/t wound healing as evidenced by advanced diabetic L heel wound, full eval pending, adm w. A1C 10.7, BG 697, uglu 4+. CURRENT DIET: CCHO LOW ms finely chopped PO DIET RECOMMENDATIONS: CCHO MED + DOUBLE PROTEIN PORTIONS ENTERAL NUTRITION RECOMMENDATIONS: If part of POC, rec non oral feeds to meet est kcal/pro needs ADDITIONAL RECOMMENDATIONS: 1) Glucerna 1 tetra TID w/ meals 2) Wound care: Add MARIO BID, Vit C 500mg BID, MVI w/ min qdaily Pending MD dowd 3) Non oral feeds if pt is unble to tolerate oral po 4) Maintain accurate bed scale weights ICD Codes: E11.621 - Type 2 diabetes mellitus with foot ulcer; L97.509 - Non- pressure chronic ulcer of other part of unspecified foot with unspecified severity SNOMED: 49379211, 869995113 (8) Urinary retention due to benign prostatic hyperplasia ICD Codes: N40.1 - Benign prostatic hyperplasia with lower urinary tract symptoms; R33.8 - Other retention of urine SNOMED: 280760360, 946225222, [id number] Walter Can Jul 02, 2020 12:03
--- NOTE | 2020-07-02 13:19 | NUR ---
CASE MANAGEMENT:REVIEW 07/02/20 SI: COVID PNA. DKA. ACUTE RENAL FAILURE 97.5 85 18 130/81 94% ON 6L/NC H/H-13.0/39.4 BUN+39 CR+2.1 IS: IV DECADRON QD IVF@50/HR IV PROTONIX Q12 COZAAR PO Q12 FLOMAX PO QHS FLOMAX PO QHS IV PEPCID Q12 LEVEMIR SQ QHS ASA PO QD : TELEMETRY STATUS DCP: FROM HOME
--- NOTE | 2020-07-02 14:15 | Consultation ---
DATE OF CONSULTATION: 07/02/2020 GASTROENTEROLOGY CONSULTATION CONSULTING PHYSICIAN: Fredy Partida MD. REFERRING PHYSICIAN: Darrian Lara MD. HISTORY OF PRESENT ILLNESS: This is a 59-year-old male, diabetes poorly controlled with having admission blood sugars elevated over 600-700, multiple diabetic foot injury wounds, who came to the hospital with complaint of not feeling well for four days. He was also diagnosed with COVID and also complained of weakness. GI consult requested for evaluation of possible GI bleeding. PAST MEDICAL HISTORY: 1. Diabetes. 2. Diabetes foot. 3. Renal insufficiency. ALLERGIES: No known drug allergies. MEDICATIONS: Please see medication reconciliation list. SOCIAL HISTORY: The patient denies any recent tobacco, alcohol, or drug abuse. FAMILY HISTORY: Noncontributory. REVIEW OF SYSTEMS: A 10-point review of systems was performed and pertinent positives are in HPI. PHYSICAL EXAMINATION: VITAL SIGNS: Temperature is 97.5, pulse 85, respirations 18, blood pressure 130/81. HEENT: Normocephalic and atraumatic. Sclerae are anicteric. NECK: Supple. No evidence of obvious lymphadenopathy. CARDIOVASCULAR: Regular rate and rhythm. Plus S1, S2. LUNGS: Clear to auscultation bilaterally. ABDOMEN: Positive bowel sounds. Soft and nontender. No rebound. No guarding. No peritoneal sign. EXTREMITIES: Multiple wounds in the foot covered. LABORATORY DATA: White count is 9.7, hemoglobin 13, hematocrit 39, platelet count is 187,000. Chem 7, sodium 145, potassium 4.3, BUN is 39, creatinine 2.1. Glucose is 238. Albumin is 2.2. ASSESSMENT: 1. Diabetes. 2. GI bleed. 3. Diabetic foot wounds. 4. Renal insufficiency with creatinine of 2.1. 5. Hypoalbuminemia with albumin of 2.2. 6. Loss of appetite. 7. UTI. 8. COVID positive pneumonia. 9. DKA. 10. Hypertension. 11. Elevated troponin, most probably secondary to renal insufficiency. PLAN: At this time, given the stable hemoglobin of 13 and active COVID infection, we are going to hold off GI procedures. Currently on PPI and famotidine, which we will continue. Monitor hemoglobin and hematocrit, transfuse as needed. Add Marinol 2.5 mg p.o. twice a for appetite stimulant. We will consider GI procedures if absolutely needed. I want to thank Dr. Lara for this kind referral. Fredy Partida M.D. DR: ALEXANDER JOB#: [id number] CC:
[2020-07-02 16:00] VITALS: BP 135/86
[2020-07-02] MEDS: Dronabinol 2.5mg Cap ORAL SCH (17:07)
[2020-07-02] MEDS: Ascorbic Acid 500mg tab ORAL SCH (17:08)
--- NOTE | 2020-07-02 18:14 | Cardiology Progress Note ---
Subjective DATE OF SERVICE: Jul 02, 2020 More alert Still on O2 suppl IVF ongoing - Free water deficit decreasing Objective Last 24 Hour Vital Signs Date Time Temp Pulse Resp B/P (MAP) Pulse Ox O2 Delivery O2 Flow Rate FiO2 07/02/20 16:00 97.0 100 20 135/86 (102) 96 07/02/20 16:00 88 07/02/20 12:00 97.9 93 22 128/80 (96) 95 07/02/20 12:00 92 07/02/20 09:10 130/81 07/02/20 08:35 Nasal Cannula 6.0 07/02/20 08:00 97.7 94 20 140/86 (104) 96 07/02/20 08:00 94 07/02/20 04:00 97.5 90 18 130/81 (97) 94 07/02/20 04:00 85 07/02/20 00:00 97.7 98 20 133/87 (102) 98 07/02/20 00:00 90 07/01/20 21:00 Nasal Cannula 6.0 07/01/20 20:52 133/87 07/01/20 20:00 99.1 87 20 126/80 (95) 95 07/01/20 20:00 102 ROS: unable to obtain HEENT: normal ENT inspection RHYTHM: NSR, ST LUNGS: bilateral rhonchi CARDIAC: normal rate, regular rhythm, normal S1 and S2 ABDOMEN: normal bowel sounds, soft, no organomegaly EXTREMITIES: non-tender, trace edema Laboratory Tests Test 07/01/20 18:20 07/02/20 05:51 07/02/20 06:07 07/02/20 16:54 White Blood Count 8.7 K/UL (4.8-10.8) 9.7 K/UL (4.8-10.8) Red Blood Count 4.79 M/UL (4.70-6.10) 4.96 M/UL (4.70-6.10) Hemoglobin 12.4 G/DL (14.2-18.0) L 13.0 G/DL (14.2-18.0) L Hematocrit 39.7 % (42.0-52.0) L 39.4 % (42.0-52.0) L Mean Corpuscular Volume 83 FL (80-99) 79 FL (80-99) L Mean Corpuscular Hemoglobin 25.9 PG (27.0-31.0) L 26.2 PG (27.0-31.0) L Mean Corpuscular Hemoglobin Concent 31.3 G/DL (32.0-36.0) L 32.9 G/DL (32.0-36.0) Red Cell Distribution Width 16.8 % (11.6-14.8) H 16.8 % (11.6-14.8) H Platelet Count 172 K/UL (150-450) 187 K/UL (150-450) Mean Platelet Volume 8.1 FL (6.5-10.1) 7.7 FL (6.5-10.1) Neutrophils (%) (Auto) % (45.0-75.0) 77.8 % (45.0-75.0) H Lymphocytes (%) (Auto) % (20.0-45.0) 12.7 % (20.0-45.0) L Monocytes (%) (Auto) % (1.0-10.0) 8.4 % (1.0-10.0) Eosinophils (%) (Auto) % (0.0-3.0) 0.0 % (0.0-3.0) Basophils (%) (Auto) % (0.0-2.0) 1.2 % (0.0-2.0) Differential Total Cells Counted 100 Neutrophils % (Manual) 82 % (45-75) H Lymphocytes % (Manual) 14 % (20-45) L Monocytes % (Manual) 4 % (1-10) Eosinophils % (Manual) 0 % (0-3) Basophils % (Manual) 0 % (0-2) Band Neutrophils 0 % (0-8) Platelet Estimate Adequate Platelet Morphology Normal Hypochromasia 1+ Anisocytosis 1+ POC Whole Blood Glucose 187 MG/DL (74-106) H 138 MG/DL (74-106) H Sodium Level 145 MMOL/L (136-145) Potassium Level 4.3 MMOL/L (3.5-5.1) Chloride Level 112 MMOL/L (98-107) H Carbon Dioxide Level 28 MMOL/L (21-32) Anion Gap 5 mmol/L (5-15) Blood Urea Nitrogen 39 mg/dL (7-18) H Creatinine 2.1 MG/DL (0.55-1.30) H Estimat Glomerular Filtration Rate 32.5 mL/min (>60) Glucose Level 238 MG/DL (74-106) H Calcium Level 8.5 MG/DL (8.5-10.1) Total Bilirubin 0.6 MG/DL (0.2-1.0) Aspartate Amino Transf (AST/SGOT) 65 U/L (15-37) H Alanine Aminotransferase (ALT/SGPT) 20 U/L (12-78) Alkaline Phosphatase 71 U/L (46-116) C-Reactive Protein, Quantitative 33.3 mg/L (<5) H Total Protein 6.8 G/DL (6.4-8.2) Albumin 2.2 G/DL (3.4-5.0) L Globulin 4.6 g/dL Albumin/Globulin Ratio 0.5 (1.0-2.7) L Assessment/Plan Assessment/Plan Covid 19 PNA Toxic and metabolic encephalopathies DKA dehydration/hypernatremia resolving Acute coronary insuff Continue isolation DC telemetry Plan of care/orders updated and discussed with [place] MD Jul 02, 2020 18:14
--- NOTE | 2020-07-02 19:26 | NUR ---
NURSE NOTES: Pt received from BRIANNE Bolden. Pt is resting comfortably in bed and denies any pain. Pt is A/Ox4 and irritable; pt is bedbound due to weakness and BLE diabetic foot ulcers. Pt has cardiac monitoring SR and asymptomatic. Pt is breathing unlabored on 6LPM NC and asymptomatic. Pt has LWrist 22G and LAC 20G 1/2NS+KCL 20 mEq 75 ml/hr.Pt has FC patent and draining well to gravity. Bed is locked and in lowest position with call light within reach. Will continue to monitor.
[2020-07-02 20:00] VITALS: BP 137/71
[2020-07-02] MEDS: Tamsulosin 0.4mg cap ORAL SCH (20:46)
[2020-07-02] MEDS: Dyna-Hex 2% Top Sol 2oz TOPIC SCH (20:47)
[2020-07-02] MEDS: Levemir Flexpen SUBQ SCH (21:02)
[2020-07-03] VITALS (7 sets, daily range): BP systolic 112–134; BP diastolic 56–84
[2020-07-03] MEDS: 1/2NS w/KCl 20mEq 1000ml 1,000 ML IV SCH ×2 (01:08→20:39)
--- NOTE | 2020-07-03 04:15 | NUR ---
Pt arrived,form telemetry alert no acute distress on 6 liter of Pt moaning asked why moaning pt states" Im upset attempted to ask patient why he is upset he turned his head. and never said anything." Star and rewriter went to observed pt he was talking in full sentences. COVID Precautions implemented. skin intact dressing to bilateral foot dry and intact. IV to hand 20 G intact IV to LFA infusing NS w Kcl +20 meq Giles intact draining to .will confined to monitor patients condition,and provide treatment as ordered
[2020-07-03] MEDS: NovoLOG Insulin Flexpen SUBQ SCH ×7 (06:27→21:00)
--- NOTE | 2020-07-03 07:19 | General Progress Note ---
Subjective ROS Limited/Unobtainable: Yes Allergies: Coded Allergies: No Known Allergies (Unverified , 06/27/20) Objective Last 24 Hour Vital Signs Date Time Temp Pulse Resp B/P (MAP) Pulse Ox O2 Delivery O2 Flow Rate FiO2 07/03/20 04:00 90 07/03/20 04:00 98.9 96 20 128/84 (99) 99 07/03/20 00:00 96.9 95 20 132/82 (99) 99 07/03/20 00:00 95 07/02/20 21:00 Nasal Cannula 6.0 07/02/20 20:48 131/72 07/02/20 20:00 97.8 94 20 137/71 (93) 97 07/02/20 20:00 94 07/02/20 16:00 97.0 100 20 135/86 (102) 96 07/02/20 16:00 88 07/02/20 12:00 97.9 93 22 128/80 (96) 95 07/02/20 12:00 92 07/02/20 09:10 130/81 07/02/20 08:35 Nasal Cannula 6.0 07/02/20 08:00 97.7 94 20 140/86 (104) 96 07/02/20 08:00 94 Intake and Output 07/02/20 07/03/20 19:00 07:00 Intake Total 360 ml Output Total 1200 ml 600 ml Balance -840 ml -600 ml Intake Oral 360 ml Output Urine Total 1200 ml 600 ml Laboratory Tests 07/02/20 16:54: POC Whole Blood Glucose 138H 07/03/20 05:31: POC Whole Blood Glucose 353H Height (Feet): 6 Height (Inches): 2.00 Weight (Pounds): 201 General Appearance: no apparent distress EENT: normal ENT inspection Neck: supple Cardiovascular: normal rate Respiratory/Chest: decreased breath sounds Abdomen: hypoactive bowel sounds Extremities: non-tender Assessment/Plan Assessment/Plan: 1. Diabetes. 2. GI bleed. 3. Diabetic foot wounds. 4. Renal insufficiency with creatinine of 2.1. 5. Hypoalbuminemia with albumin of 2.2. 6. Loss of appetite. 7. UTI. 8. COVID positive pneumonia. 9. DKA. 10. Hypertension. 11. Elevated troponin, most probably secondary to renal insufficiency. PLAN: At this time, given the stable hemoglobin of 13 and active COVID infection, we are going to hold off GI procedures. Currently on PPI and famotidine, which we will continue. Monitor hemoglobin and hematocrit, transfuse as needed. Marinol 2.5 mg p.o. twice a for appetite stimulant monitor po intake We will consider GI procedures if absolutely needed. Fredy Partida MD Jul 03, 2020 07:19
--- NOTE | 2020-07-03 08:00 | NUR ---
NURSE NOTES: RN received report from Nola Young. RN received the patient in bed. Patient's mentation was AAOX0, grunting, shallow breathing. o2 sat was 44%. IVs intact, patent, asymptomatic and dry. RN called SECURITY INSTALLER immediately. Bed in lowest position and locked, call light within reach.
--- NOTE | 2020-07-03 08:15 | Pulmonology Progress Note ---
Subjective ROS Limited/Unobtainable: Yes Allergies: Coded Allergies: No Known Allergies (Unverified , 06/27/20) Subjective on 6 L O2 via NC no CP, no SOB no fevers no leukocytosis Objective Last 24 Hour Vital Signs Date Time Temp Pulse Resp B/P (MAP) Pulse Ox O2 Delivery O2 Flow Rate FiO2 07/03/20 04:00 90 07/03/20 04:00 98.9 96 20 128/84 (99) 99 07/03/20 00:00 96.9 95 20 132/82 (99) 99 07/03/20 00:00 95 07/02/20 21:00 Nasal Cannula 6.0 07/02/20 20:48 131/72 07/02/20 20:00 97.8 94 20 137/71 (93) 97 07/02/20 20:00 94 07/02/20 16:00 97.0 100 20 135/86 (102) 96 07/02/20 16:00 88 07/02/20 12:00 97.9 93 22 128/80 (96) 95 07/02/20 12:00 92 07/02/20 09:10 130/81 07/02/20 08:35 Nasal Cannula 6.0 Intake and Output 07/02/20 07/03/20 19:00 07:00 Intake Total 360 ml Output Total 1200 ml 600 ml Balance -840 ml -600 ml Intake Oral 360 ml Output Urine Total 1200 ml 600 ml Objective General Appearance: no apparent distress, alert Lines, tubes and drains: peripheral HEENT: normocephalic, atraumatic, anicteric, mucous membranes moist, O2 6L via NC Neck: non-tender, normal alignment, supple Respiratory/Chest: lungs clear, no respiratory distress, no accessory muscle use Cardiovascular/Chest: regular SR Abdomen: normal bowel sounds, non tender, soft Extremities: normal range of motion, no calf tenderness, normal capillary refill Skin Exam: L foot ulcer Neurologic: no motor/sensory deficits, alert, oriented x 3, responsive Musculoskeletal: normal muscle bulk Laboratory Tests 07/02/20 16:54: POC Whole Blood Glucose 138H 07/03/20 05:31: POC Whole Blood Glucose 353H Current Medications Medications (Trade) Dose Ordered Sig/Td Route PRN Reason Start Time Stop Time Status Last Admin Dose Admin Acetaminophen (Tylenol) 650 mg Q4H PRN ORAL Mild Pain (Pain Scale 1-3) 06/27/20 13:30 07/27/20 13:29 06/27/20 21:11 Acetaminophen (Tylenol) 650 mg Q4H PRN ORAL fever 06/27/20 13:30 07/27/20 13:29 Albuterol Sulfate (Proventil MDI) 2 puff Q4H PRN INH Shortness of Breath 06/27/20 13:45 09/25/20 13:44 Ascorbic Acid (Vitamin C) 250 mg TWICE A DAY ORAL 07/02/20 18:00 08/01/20 17:59 07/02/20 17:08 Aspirin (ASA) 81 mg DAILY ORAL 06/27/20 13:30 08/11/20 13:29 07/02/20 09:10 Chlorhexidine Gluconate (Rosario-Hex 2%) 1 applic DAILY@2000 TOPIC 06/30/20 20:00 09/28/20 19:59 07/02/20 20:47 Dexamethasone Sodium Phosphate (Decadron 10mg/ ml Inj) 6 mg DAILY IV 06/30/20 12:00 07/09/20 12:00 07/02/20 09:10 Dextrose (Dextrose 50%) 25 ml Q30M PRN IV Hypoglycemia 06/27/20 13:30 09/25/20 13:29 Dextrose (Dextrose 50%) 50 ml Q30M PRN IV Hypoglycemia 06/27/20 13:30 09/25/20 13:29 Dronabinol (Marinol) 2.5 mg BID ORAL 07/02/20 18:00 09/30/20 17:59 07/02/20 17:07 Famotidine (Pepcid I.v.) 20 mg Q12HR IVP 06/30/20 12:00 07/30/20 11:59 07/02/20 20:47 Insulin Aspart (NovoLOG) BEFORE MEALS AND HS SUBQ 06/27/20 16:30 09/25/20 16:29 07/03/20 06:27 Insulin Aspart (NovoLOG) 16 units NOVOTIAC SUBQ 07/02/20 11:50 09/30/20 11:49 07/03/20 06:32 Insulin Detemir (Levemir) 35 units QHS SUBQ 06/30/20 21:00 09/28/20 20:59 07/02/20 21:02 Losartan Potassium (Cozaar) 50 mg EVERY 12 HOURS ORAL 06/30/20 21:15 07/30/20 21:14 07/02/20 20:48 Magnesium Hydroxide (Mom) 30 ml HSPRN PRN ORAL Constipation 06/27/20 13:30 07/27/20 13:29 Multivitamins (Multivitamins) 1 tab DAILY ORAL 07/03/20 09:00 08/02/20 08:59 Nitroglycerin (Ntg) 0.4 mg Q5M PRN SL Prn Chest Pain 06/27/20 13:30 07/27/20 13:29 Ondansetron HCl (Zofran) 4 mg Q6H PRN IVP Nausea & Vomiting 06/27/20 13:30 07/27/20 13:29 06/30/20 17:50 Pantoprazole (Protonix) 40 mg EVERY 12 HOURS IVP 07/01/20 21:00 07/31/20 20:59 07/02/20 20:46 Sodium 1,000 ml @ 50 mls/hr Q20H IV 06/29/20 10:00 07/29/20 09:59 07/03/20 01:08 Tamsulosin HCl (Flomax) 0.8 mg BEDTIME ORAL 06/30/20 21:00 07/30/20 20:59 07/02/20 20:46 Assessment/Plan Assessment/Plan ASSESSMENT COVID 19 DKA Acute renal failure Hyperkalemia DM HTN Hypernatremia Elevated troponin, likely troponin leak 2 ARF PLAN OF CARE tele isolation Date of sx onset: 4 days ago prior to ED presentation Positive test: 06/27/20 O2 NRM-NC 6L - titrate to keep sat > 92% HFA prn DEX Day # 4 ( 06/30 - ) started given developed hypoxia REM not a candidate given ARF a/c LMWH venous Duplex BLE 07/02 NGT D dimer 0,82, LDH 561, ferritin >2000 Trend CRP 62.3- 111.7-33.3 CXR 07/01 Left basilar infiltrate, right perihilar atelectasis and possible infiltrate -> unchanged. abx per ID recs -> currently off abx hydration and BS management - per primary anion gap closed ; off insulin gtt BS management per primary HgA1c -10.7, not at goal hypoglycemia protocol diabetic diet and diabetic teaching creat trending down, hyper K resolved 2 nd troponin mildly elevated likely troponin leak 2 to ARF cardio follows monitor volumes and renal function fup with consultants marielena ANDRADE case discussed and evaluated by supervising physician Sophia Musa NP Jul 03, 2020 08:15
[2020-07-03] MEDS ORDERED: Albuterol/Ipratropium 3ml neb ONE (08:36)
[2020-07-03 08:42] LABS: BASOPHILS % (AUTO) 0.6 % (0.0-2.0); HEMATOCRIT 39.4 % (42.0-52.0); HEMOGLOBIN 12.8 G/DL (14.2-18.0); LYMPHOCYTES % (AUTO) 11.2 % (20.0-45.0); MEAN CORPUSCULAR VOLUME 81 FL (80-99); MONOCYTES % (AUTO) 12.2 % (1.0-10.0); PLATELET COUNT 212 K/UL (150-450); RED BLOOD COUNT 4.88 M/UL (4.70-6.10); RED CELL DISTRIBUTION WIDTH 16.1 % (11.6-14.8); WHITE BLOOD COUNT 12.5 K/UL (4.8-10.8)
[2020-07-03] MEDS ORDERED: Ipratropium 0.02% Inh Soln 2.5ml UD HHN ONE (08:45)
[2020-07-03 08:53] LABS: ALBUMIN 2.2 G/DL (3.4-5.0); ALBUMIN/GLOBULIN RATIO 0.5 (1.0-2.7); CALCIUM 8.2 MG/DL (8.5-10.1); CREATININE 2.4 MG/DL (0.55-1.30); POTASSIUM 3.7 MMOL/L (3.5-5.1)
[2020-07-03] MEDS: Dronabinol 2.5mg Cap ORAL SCH ×2 (09:00→18:18)
[2020-07-03] MEDS: Losartan 50mg tab ORAL SCH ×2 (09:00→22:05)
[2020-07-03] MEDS: Aspirin Baby 81mg ORAL SCH (09:00)
[2020-07-03] MEDS: Ascorbic Acid 500mg tab ORAL SCH ×2 (09:00→18:18)
[2020-07-03] MEDS: Pantoprazole Inj IVP SCH ×2 (09:00→22:04)
[2020-07-03] MEDS: dexAMETHasone 10mg/ml Inj IV SCH (09:09)
--- NOTE | 2020-07-03 10:15 | NUR ---
NURSE NOTES: Patient was found unresponsive with shallow, grunting respirations during morning VS (see [employer] intervention). Patient was placed on 15L NRB mask and [employer] called. [employer] nurse treated patient per [employer] protocol, ABG done x2, patient received albuterol nuoneb x1, atrovent nebulizer x2, patient became more awake and alert and was saturating 88-90% on 15L NRB mask. Patient was transferred to telemetry 220-[address] Burnett, Dr. Lara aware and updated on patient's condition. Report given to Yisel DECKER. All belongings sent with patient.
[2020-07-03] MEDS ORDERED: Albuterol/Ipratropium 3ml neb HHN ONE (11:00)
--- NOTE | 2020-07-03 11:05 | NUR ---
NURSE NOTES: pt keeps taking mask of , educated pt to keep mask on and take deep breaths.
--- NOTE | 2020-07-03 11:11 | Diagnostic Imaging Report ---
EXAM: XR Chest, 1 View CLINICAL HISTORY: SOB TECHNIQUE: Frontal view of the chest. COMPARISON: Chest x-ray 07/01/20, 7:28 AM FINDINGS: Lungs: Bilateral mild hazy interstitial and airspace opacities are slightly improved in the left lung, slightly worsened in the right lung. Pleural space: May be small bilateral pleural effusions. No pneumothorax. Heart: Unremarkable. No cardiomegaly. Mediastinum: Unremarkable. Bones/joints: Unremarkable. IMPRESSION: 1. Bilateral mild hazy interstitial and airspace opacities are slightly improved in the left lung, slightly worsened in the right lung. 2. May be small bilateral pleural effusions.
--- NOTE | 2020-07-03 11:17 | Diagnostic Imaging Report ---
EXAM: XR Right Foot Complete, 3 or More Views CLINICAL HISTORY: OSTEOMY TECHNIQUE: Frontal, lateral and oblique views of the right foot. COMPARISON: No relevant prior studies available. FINDINGS: Bones/joints: Query subtle lucency at the medial distal proximal phalanx near the joint space. Mild hallux valgus of the first tarsometatarsal joint. No acute fracture. No dislocation. Soft tissues: Lucency in the soft tissue medial aspect of the first interphalangeal joint, query ulceration. No radiopaque foreign body. IMPRESSION: Lucency in the soft tissue medial aspect of the first interphalangeal joint, query ulceration. Query subtle lucency at the medial distal proximal phalanx near the joint space. Consider MRI if there is further clinical concern.
--- NOTE | 2020-07-03 11:20 | Diagnostic Imaging Report ---
EXAM: XR Left Foot Complete, 3 or More Views CLINICAL HISTORY: OSTEOMY TECHNIQUE: Frontal, lateral and oblique views of the left foot. COMPARISON: No relevant prior studies available. FINDINGS: Bones/joints: There is periosteal thickening at the inferior aspect of the calcaneus worrisome for osteomyelitis. Diffuse osteopenia of the foot. Mild degenerative changes of tarsal bones. No acute fracture. No dislocation. Soft tissues: Soft tissue ulceration in the plantar aspect of the hindfoot. No radiopaque foreign body. IMPRESSION: 1. Soft tissue ulceration in the plantar aspect of the hindfoot. 2. There is periosteal thickening at the inferior aspect of the calcaneus worrisome for osteomyelitis.
--- NOTE | 2020-07-03 12:04 | Surgery Progress Note ---
Surgery Progress Note Subjective Additional Comments desaturated unresponsive this AM now feels better States unsure what happened Objective Last 24 Hour Vital Signs Date Time Temp Pulse Resp B/P (MAP) Pulse Ox O2 Delivery O2 Flow Rate FiO2 07/03/20 10:41 109 07/03/20 08:00 98.9 120 20 112/56 (74) 28 07/03/20 04:00 90 07/03/20 04:00 98.9 96 20 128/84 (99) 99 07/03/20 00:00 96.9 95 20 132/82 (99) 99 07/03/20 00:00 95 07/02/20 21:00 Nasal Cannula 6.0 07/02/20 20:48 131/72 07/02/20 20:00 97.8 94 20 137/71 (93) 97 07/02/20 20:00 94 07/02/20 16:00 97.0 100 20 135/86 (102) 96 07/02/20 16:00 88 I&O Intake and Output 07/02/20 07/03/20 19:00 07:00 Intake Total 360 ml Output Total 1200 ml 600 ml Balance -840 ml -600 ml Intake Oral 360 ml Output Urine Total 1200 ml 600 ml Dressing: saturated Cardiovascular: RSR Respiratory: clear, decreased breath sounds Abdomen: soft, non-tender, present bowel sounds, non-distended Extremities: other Laboratory Tests Test 07/02/20 16:54 07/03/20 05:31 07/03/20 08:10 POC Whole Blood Glucose 138 MG/DL (74-106) H 353 MG/DL (74-106) H White Blood Count 12.5 K/UL (4.8-10.8) H Red Blood Count 4.88 M/UL (4.70-6.10) Hemoglobin 12.8 G/DL (14.2-18.0) L Hematocrit 39.4 % (42.0-52.0) L Mean Corpuscular Volume 81 FL (80-99) Mean Corpuscular Hemoglobin 26.3 PG (27.0-31.0) L Mean Corpuscular Hemoglobin Concent 32.5 G/DL (32.0-36.0) Red Cell Distribution Width 16.1 % (11.6-14.8) H Platelet Count 212 K/UL (150-450) Mean Platelet Volume 8.4 FL (6.5-10.1) Neutrophils (%) (Auto) 76.0 % (45.0-75.0) H Lymphocytes (%) (Auto) 11.2 % (20.0-45.0) L Monocytes (%) (Auto) 12.2 % (1.0-10.0) H Eosinophils (%) (Auto) 0.0 % (0.0-3.0) Basophils (%) (Auto) 0.6 % (0.0-2.0) Sodium Level 144 MMOL/L (136-145) Potassium Level 3.7 MMOL/L (3.5-5.1) Chloride Level 109 MMOL/L (98-107) H Carbon Dioxide Level 21 MMOL/L (21-32) Anion Gap 14 mmol/L (5-15) Blood Urea Nitrogen 44 mg/dL (7-18) H Creatinine 2.4 MG/DL (0.55-1.30) H Estimat Glomerular Filtration Rate 27.8 mL/min (>60) Glucose Level 319 MG/DL (74-106) H Calcium Level 8.2 MG/DL (8.5-10.1) L Total Bilirubin 1.0 MG/DL (0.2-1.0) Aspartate Amino Transf (AST/SGOT) 49 U/L (15-37) H Alanine Aminotransferase (ALT/SGPT) 20 U/L (12-78) Alkaline Phosphatase 82 U/L (46-116) Total Protein 6.6 G/DL (6.4-8.2) Albumin 2.2 G/DL (3.4-5.0) L Globulin 4.4 g/dL Albumin/Globulin Ratio 0.5 (1.0-2.7) L Plan Problems: (1) 2019 novel coronavirus detected Assessment & Plan: as per pulm ID onput pcp (2) DKA (diabetic ketoacidoses) (3) Dehydration (4) Dysphagia (5) Hypernatremia (6) Metabolic encephalopathy (7) Diabetic foot ulcer Assessment & Plan: Pt presented on admission with Multiple Ulcers R and L Feet. Full thickness stage 4 Ulcer plantar R 1st Metatarsal. Base of wound mixed nec rosis and slough. Bone is palpable(L)2.5cm x (W)1.8cm x (D)0.4cm.Thick-callused borders noted. No erythema, induration or fluctuance periwound. Full Thickness stage 4 Ulcer Plantar L Foot (L)9cm x (W)3.5cmx (D)1.1cm, Undermined borders clockwise 6-9o'clock with tunneling at 7 o'clock by 4cm. Base of wound is génesis. Wound is malodorous with moderate amt of green exudate. Edges are semi-detached, and callused with an area of necrosis noted distally along borders. Distally,but in close Proximity is an area of dry eschar (L)1.5cm x (W)3.8cm.No erythema, induration or fluctuance periwound.Rocker foot Bottom noted L foot. Both heels are dry and callused. No evidence of skin breakdown sacrum. Tx plan: Cleanse wound plantar R 1st Metatarsal with Saline. Apply TheraHoney. Apply Cavilon Skin Barrier Periwound. Cover with Optifoam Daily and prn. Cleanse wound Plantar L Foot with Saline.Apply Therahoney. Apply Maxosrb Extra(Calcium Alginate) Apply Cavilon periwound ,Cover with ABD pad and wrap with Kerlix Daily and prn. Apply Betadine to Necrotic area Plantar L foot Daily and prn. Apply Moisture Barrier Paste to Sacrum. Cover with Optifoam drsg. Change every 3 days and prn. Reposition at least every 2 hours or as tolerated. Elevate both lower extremities with pillows with both heels floated off mattress. DAILY ESTIMATED NEEDS: Needs based on DM, wound, pulmonary 91.4kg 25-30 kcals/kg 9436-6331 total kcals 1.25-2 g protein/kg 114-183 g total protein 25-30 mL/kg 1319-5777 total fluid mLs NUTRITION DIAGNOSIS: Increased pro needs needs r/t wound healing as evidenced by advanced diabetic L heel wound, full eval pending, adm w. A1C 10.7, BG 697, uglu 4+. CURRENT DIET: CCHO LOW ms finely chopped PO DIET RECOMMENDATIONS: CCHO MED + DOUBLE PROTEIN PORTIONS ENTERAL NUTRITION RECOMMENDATIONS: If part of POC, rec non oral feeds to meet est kcal/pro needs ADDITIONAL RECOMMENDATIONS: 1) Glucerna 1 tetra TID w/ meals 2) Wound care: Add MARIO BID, Vit C 500mg BID, MVI w/ min qdaily Pending MD dowd 3) Non oral feeds if pt is unble to tolerate oral po 4) Maintain accurate bed scale weights (8) Urinary retention due to benign prostatic hyperplasia Walter Can Jul 03, 2020 12:03
--- NOTE | 2020-07-03 12:50 | NUR ---
NURSE NOTES: found pt talking on the ph with mask off sating at mid 8o's. once again educated pt and encourage him to keep mask on.
--- NOTE | 2020-07-03 15:51 | General Progress Note ---
Subjective ROS Limited/Unobtainable: Yes Allergies: Coded Allergies: No Known Allergies (Unverified , 06/27/20) Objective Last 24 Hour Vital Signs Date Time Temp Pulse Resp B/P (MAP) Pulse Ox O2 Delivery O2 Flow Rate FiO2 07/03/20 10:41 109 07/03/20 09:00 Nasal Cannula 6.0 07/03/20 08:47 115 20 91 Non-Rebreather 100 112 20 91 07/03/20 08:00 98.9 120 20 112/56 (74) 28 07/03/20 04:00 90 07/03/20 04:00 98.9 96 20 128/84 (99) 99 07/03/20 00:00 96.9 95 20 132/82 (99) 99 07/03/20 00:00 95 07/02/20 21:00 Nasal Cannula 6.0 07/02/20 20:48 131/72 07/02/20 20:00 97.8 94 20 137/71 (93) 97 07/02/20 20:00 94 07/02/20 16:00 97.0 100 20 135/86 (102) 96 07/02/20 16:00 88 Intake and Output 07/02/20 07/03/20 19:00 07:00 Intake Total 360 ml Output Total 1200 ml 600 ml Balance -840 ml -600 ml Intake Oral 360 ml Output Urine Total 1200 ml 600 ml Laboratory Tests 07/02/20 16:54: POC Whole Blood Glucose 138H 07/03/20 05:31: POC Whole Blood Glucose 353H 07/03/20 08:10: White Blood Count 12.5H, Red Blood Count 4.88, Hemoglobin 12.8L, Hematocrit 39.4L, Mean Corpuscular Volume 81, Mean Corpuscular Hemoglobin 26.3L, Mean Corpuscular Hemoglobin Concent 32.5, Red Cell Distribution Width 16.1H, Platelet Count 212, Mean Platelet Volume 8.4, Neutrophils (%) (Auto) 76.0H, Lymphocytes (%) (Auto) 11.2L, Monocytes (%) (Auto) 12.2H, Eosinophils (%) (Auto) 0.0, Basophils (%) (Auto) 0.6, Sodium Level 144, Potassium Level 3.7, Chloride Level 109H, Carbon Dioxide Level 21, Anion Gap 14, Blood Urea Nitrogen 44H, Creatinine 2.4H, Estimat Glomerular Filtration Rate 27.8, Glucose Level 319H, Calcium Level 8.2L, Total Bilirubin 1.0, Aspartate Amino Transf (AST/SGOT) 49H, Alanine Aminotransferase (ALT/SGPT) 20, Alkaline Phosphatase 82, Total Protein 6.6, Albumin 2.2L, Globulin 4.4, Albumin/Globulin Ratio 0.5L Height (Feet): 6 Height (Inches): 2.00 Weight (Pounds): 201 General Appearance: lethargic EENT: normal ENT inspection Neck: normal alignment Cardiovascular: regular rhythm Respiratory/Chest: rhonchi - bilaterally Abdomen: soft Edema: trace edema Neurologic: warp tester II-XII grossly normal Skin: other - foot ulcers Assessment/Plan Problem List: (1) DKA (diabetic ketoacidoses) ICD Codes: E11.10 - Type 2 diabetes mellitus with ketoacidosis without coma SNOMED: 38644893, 985897045 (2) 2019 novel coronavirus detected ICD Codes: U07.1 - COVID-19 SNOMED: 2032765243890512 (3) Dysphagia ICD Codes: R13.10 - Dysphagia, unspecified SNOMED: 58568938, 429676600 (4) Dehydration ICD Codes: E86.0 - Dehydration SNOMED: 76103091 (5) Hypernatremia ICD Codes: E87.0 - Hyperosmolality and hypernatremia SNOMED: 975661905 (6) Metabolic encephalopathy ICD Codes: G93.41 - Metabolic encephalopathy SNOMED: 70135002 (7) Diabetic foot ulcer ICD Codes: E11.621 - Type 2 diabetes mellitus with foot ulcer; L97.509 - Non- pressure chronic ulcer of other part of unspecified foot with unspecified severity SNOMED: 74036643, 085791144 (8) Urinary retention due to benign prostatic hyperplasia ICD Codes: N40.1 - Benign prostatic hyperplasia with lower urinary tract symptoms; R33.8 - Other retention of urine SNOMED: 916539349, 790763798, 717804203100561 Assessment/Plan: hydration, hypotonic iv, adjusted, increase novolog and levemir, monitor lab and mental status, wound care , puree diet as missing denture trying to reach family Kimberli [phone] reached 06/30, discussed high risk and code status worsening hypoxemia, full code per family Lang,Darrian MD Jul 03, 2020 15:51
--- NOTE | 2020-07-03 17:39 | NUR ---
NOtes; pt was found once again with mask off. pt is sating 81, explained to pt he must keep mask on. eeg technologist adjusted mask pt o2 went up to 94.
--- NOTE | 2020-07-03 17:59 | Cardiology Progress Note ---
Subjective DATE OF SERVICE: Jul 03, 2020 More alert Still on O2 suppl IVF ongoing - Free water deficit decreasing but renal fxn slightly worse. CXR (07/03) Bilateral infiltrates worse on one side, slightly better on other side. Objective Last 24 Hour Vital Signs Date Time Temp Pulse Resp B/P (MAP) Pulse Ox O2 Delivery O2 Flow Rate FiO2 07/03/20 15:39 109 20 91 07/03/20 10:41 109 07/03/20 09:31 114 20 91 Non-Rebreather 100 112 20 90 07/03/20 09:31 98 Non-Rebreather 100 07/03/20 09:21 112 20 90 Non-Rebreather 100 113 20 88 07/03/20 09:00 Nasal Cannula 6.0 07/03/20 08:47 115 20 91 Non-Rebreather 100 112 20 91 07/03/20 08:00 109 20 44 07/03/20 08:00 98.9 120 20 112/56 (74) 44 07/03/20 04:00 90 07/03/20 04:00 98.9 96 20 128/84 (99) 99 07/03/20 00:00 96.9 95 20 132/82 (99) 99 07/03/20 00:00 95 07/02/20 21:00 Nasal Cannula 6.0 07/02/20 20:48 131/72 07/02/20 20:00 97.8 94 20 137/71 (93) 97 07/02/20 20:00 94 ROS: unable to obtain HEENT: normal ENT inspection RHYTHM: NSR, ST LUNGS: bilateral rhonchi CARDIAC: normal rate, regular rhythm, normal S1 and S2 ABDOMEN: normal bowel sounds, soft, no organomegaly EXTREMITIES: non-tender, trace edema Laboratory Tests Test 07/03/20 05:31 07/03/20 08:10 07/03/20 17:31 POC Whole Blood Glucose 353 MG/DL (74-106) H Pending White Blood Count 12.5 K/UL (4.8-10.8) H Red Blood Count 4.88 M/UL (4.70-6.10) Hemoglobin 12.8 G/DL (14.2-18.0) L Hematocrit 39.4 % (42.0-52.0) L Mean Corpuscular Volume 81 FL (80-99) Mean Corpuscular Hemoglobin 26.3 PG (27.0-31.0) L Mean Corpuscular Hemoglobin Concent 32.5 G/DL (32.0-36.0) Red Cell Distribution Width 16.1 % (11.6-14.8) H Platelet Count 212 K/UL (150-450) Mean Platelet Volume 8.4 FL (6.5-10.1) Neutrophils (%) (Auto) 76.0 % (45.0-75.0) H Lymphocytes (%) (Auto) 11.2 % (20.0-45.0) L Monocytes (%) (Auto) 12.2 % (1.0-10.0) H Eosinophils (%) (Auto) 0.0 % (0.0-3.0) Basophils (%) (Auto) 0.6 % (0.0-2.0) Sodium Level 144 MMOL/L (136-145) Potassium Level 3.7 MMOL/L (3.5-5.1) Chloride Level 109 MMOL/L (98-107) H Carbon Dioxide Level 21 MMOL/L (21-32) Anion Gap 14 mmol/L (5-15) Blood Urea Nitrogen 44 mg/dL (7-18) H Creatinine 2.4 MG/DL (0.55-1.30) H Estimat Glomerular Filtration Rate 27.8 mL/min (>60) Glucose Level 319 MG/DL (74-106) H Calcium Level 8.2 MG/DL (8.5-10.1) L Total Bilirubin 1.0 MG/DL (0.2-1.0) Aspartate Amino Transf (AST/SGOT) 49 U/L (15-37) H Alanine Aminotransferase (ALT/SGPT) 20 U/L (12-78) Alkaline Phosphatase 82 U/L (46-116) Total Protein 6.6 G/DL (6.4-8.2) Albumin 2.2 G/DL (3.4-5.0) L Globulin 4.4 g/dL Albumin/Globulin Ratio 0.5 (1.0-2.7) L Assessment/Plan Assessment/Plan Covid 19 PNA Hypoxia CXR essentially unimproved Toxic and metabolic encephalopathies DKA dehydration/hypernatremia resolving Acute coronary insuff Continue isolation DC telemetry Plan of care/orders updated and discussed with [place] MD Jul 03, 2020 17:59
--- NOTE | 2020-07-03 19:40 | NUR ---
NURSE NOTES: Important Events on Shift: Received report from Yisel Phoenix RN. Pt is on non-rebreather mask sating 95%. Pt has intact, clean dry dressing on diabetic ulcers. No pressure injuries at this time. Will continue to monitor closely. Will continue plan of care. Patient Status: Full Code Diet: CCHO L Pending Orders: Transfer to [place], CXR Pending Results/Labs: phos, cbc Pending MD notification: none Latest Vital Signs: Temperature 98.1 , Pulse 96 , B/P 146 /94 , Respiratory Rate 20 , O2 SAT 96 , Room Air, O2 Flow Rate 6.0 . Vital Sign Comment: stable throughout shift EKG Rhythm: Sinus Rhythm Rhythm change?: N MD Notified?: - MD Response: Latest Estrada Fall Score: 40 Fall Risk: Medium Risk Safety Measures: Call light Within Reach, Bed Alarm Zone 2, Side Rails Side Rails x2, Bed position Low and Locked. Fall Precautions: YES Yellow Socks YES Yellow Gown YES Door Sign YES Patient Fall Education YES
[2020-07-03] MEDS: Dyna-Hex 2% Top Sol 2oz TOPIC SCH (20:00)
--- NOTE | 2020-07-03 20:56 | NUR ---
NURSE HAND-OFF REPORT: Important Events on Shift:[]pt takes away mask and desats, family is aware Kimberli. Family member spoke to pt and pt seemed to understand that he needs it. Patient Status: [] full Diet: []ccho low Pending Orders: [] Pending Results/Labs:[] Pending MD notification:[] Latest Vital Signs: Temperature 97.8 , Pulse 101 , B/P 125 /78 , Respiratory Rate 22 , O2 SAT 91 , Room Air, O2 Flow Rate 6.0 . Vital Sign Comment: [] EKG Rhythm: Sinus Tachycardia Rhythm change?: N MD Notified?: - MD Response: Latest Estrada Fall Score: 40 Fall Risk: Medium Risk Safety Measures: Call light Within Reach, Bed Alarm Zone 2, Side Rails Side Rails x2, Bed position Low and Locked. Fall Precautions: y Yellow Socks y Yellow Gown y Door Sign y Patient Fall Education Dumas/RN Report given to [].
[2020-07-03] MEDS: Levemir Flexpen SUBQ SCH (21:00)
[2020-07-03] MEDS: Tamsulosin 0.4mg cap ORAL SCH (22:04)
--- NOTE | 2020-07-03 23:52 | Infectious Diseases Prog Note ---
Assessment/Plan Assessment/Plan ASSESSMENT AND PLAN: 1. covid-19 infection with pna, worsening hypoxia, hx fevers, leukocytosis, sepsis, ? bacterial pna, ? HAP, ? evolving CAP, ? aspiration pna, arf left heel/right great toe wounds, ? infected, ? osteomyelitis left foot x- ray - dexamethasone, renal failure limits use of remdesivir but consider starting in view of worsening hypoxia - surgery f/u on wounds, ? podiatry f/u - monitor hypoxia and labs and chest x-ray - poor prognosis 2. Acute kidney injury, elevated creatinine. 3. Diabetes. 4. Hypertension. 5. Diabetic ketoacidosis. 6. Anemia. 7. Diabetes and hypertension treatment per primary team. 8. Blood sugar treatment per primary team. 9. IV fluids. 10. The patient has no known drug allergies. 11. Social history is negative. 12. Family history is noncontributory. 13. MAR was noted. 14. Case discussed with RN. 15. wound care per protocol Subjective Constitutional: Reports: other - more sob, hypoxic ; Denies: fever HEENT: Reports: congestion Respiratory: Reports: shortness of breath Cardiovascular: Denies: chest pain Gastrointestinal/Abdominal: Denies: nausea, vomiting, diarrhea Genitourinary: Reports: other - + ashraf Neurologic: Reports: other - lethargic Psychiatric: Reports: other - NA Skin: Denies: rash Hematologic: Denies: bleeding Musculoskeletal: Reports: other - NA Allergies: Coded Allergies: No Known Allergies (Unverified , 06/27/20) Objective Last 24 Hour Vital Signs Date Time Temp Pulse Resp B/P (MAP) Pulse Ox O2 Delivery O2 Flow Rate FiO2 07/03/20 22:05 134/82 07/03/20 20:10 90 Non-Rebreather 15.0 100 07/03/20 16:00 101 07/03/20 16:00 97.8 110 22 125/78 (94) 91 07/03/20 15:39 109 20 91 07/03/20 12:00 105 07/03/20 12:00 97.3 107 22 123/81 (95) 94 07/03/20 10:41 109 07/03/20 09:31 114 20 91 Non-Rebreather 100 112 20 90 07/03/20 09:31 98 Non-Rebreather 100 1/9/21 09:21 112 20 90 Non-Rebreather 100 113 20 88 07/03/20 09:00 Nasal Cannula 6.0 07/03/20 08:47 115 20 91 Non-Rebreather 100 112 20 91 07/03/20 08:00 109 20 44 07/03/20 08:00 98.9 120 20 112/56 (74) 44 07/03/20 04:00 90 07/03/20 04:00 98.9 96 20 128/84 (99) 99 07/03/20 00:00 96.9 95 20 132/82 (99) 99 07/03/20 00:00 95 Height (Feet): 6 Height (Inches): 2.00 Weight (Pounds): 201 General Appearance: other - more sob, on NR HEENT: normocephalic, atraumatic, anicteric Respiratory/Chest: crackles/rales, rhonchi - bilaterally Cardiovascular: normal rate, regular rhythm, no gallop/murmur, no JVD Abdomen: normal bowel sounds, soft, non tender, no organomegaly, non distended Genitourinary: other - + ashraf Extremities: other - wounds covered Skin: no rash Neurologic/Psychiatric: other - lethargic, weak Lymphatic: no neck adenopathy Musculoskeletal: no effusion Procedure: XRAY Foot Complete R EXAM: XR Right Foot Complete, 3 or More Views CLINICAL HISTORY: OSTEOMY TECHNIQUE: Frontal, lateral and oblique views of the right foot. COMPARISON: No relevant prior studies available. FINDINGS: Bones/joints: Query subtle lucency at the medial distal proximal phalanx near the joint space. Mild hallux valgus of the first tarsometatarsal joint. No acute fracture. No dislocation. Soft tissues: Lucency in the soft tissue medial aspect of the first interphalangeal joint, query ulceration. No radiopaque foreign body. IMPRESSION: Lucency in the soft tissue medial aspect of the first interphalangeal joint, query ulceration. Query subtle lucency at the medial distal proximal phalanx near the joint space. Consider MRI if there is further clinical concern. Procedure: XRAY Foot Complete L EXAM: XR Left Foot Complete, 3 or More Views CLINICAL HISTORY: OSTEOMY TECHNIQUE: Frontal, lateral and oblique views of the left foot. COMPARISON: No relevant prior studies available. FINDINGS: Bones/joints: There is periosteal thickening at the inferior aspect of the calcaneus worrisome for osteomyelitis. Diffuse osteopenia of the foot. Mild degenerative changes of tarsal bones. No acute fracture. No dislocation. Soft tissues: Soft tissue ulceration in the plantar aspect of the hindfoot. No radiopaque foreign body. IMPRESSION: 1. Soft tissue ulceration in the plantar aspect of the hindfoot. 2. There is periosteal thickening at the inferior aspect of the calcaneus worrisome for osteomyelitis. Chest x-ray - 06/28/20 - Procedure: XRAY Chest 1v Indication: Cough Technique: One view of the chest Comparison: 06/27/2020 Findings: Optimal exam currently; current exam also less heavily exposed. There are increased streaky peribronchovascular infiltrates in the left lung. There are also some atelectatic bands in the left midlung periphery which were evident previously. There are questionably streaky infiltrates in the right lung, as well as some atelectasis. This is probably unchanged allowing for differences in degree of inspiration and exposure technique Impression: Increasing left peripheral infiltrates, likely reflects increasing pneumonia. There are questionably minimal infiltrates on the right as well as some atelectasis Chest x-ray - 07/01/20 - Procedure: XRAY Chest 1v Indication: Shortness of breath Technique: One view of the chest Comparison: none Findings: Suboptimal inspiration. Left basilar infiltrate, right perihilar atelectasis and possible infiltrate are unchanged. Impression: Unchanged, over 2 days, findings as above. Chest x-ray - 07/03/20 - FINDINGS: Lungs: Bilateral mild hazy interstitial and airspace opacities are slightly improved in the left lung, slightly worsened in the right lung. Pleural space: May be small bilateral pleural effusions. No pneumothorax. Heart: Unremarkable. No cardiomegaly. Mediastinum: Unremarkable. Bones/joints: Unremarkable. IMPRESSION: 1. Bilateral mild hazy interstitial and airspace opacities are slightly improved in the left lung, slightly worsened in the right lung. 2. May be small bilateral pleural effusions. Microbiology Date/Time Source Procedure Growth Status 06/28/20 21:08 Nasal Nares Right - Final Complete 06/28/20 21:08 Nasal Nares Right - Final Complete 06/27/20 16:47 Urine,Clean Catch Urine Culture - Final Mixed Gram Positive Organism Complete Microbiology Date/Time Source Procedure Growth Status 06/28/20 21:08 Nasal Nares Right - Final Complete 06/28/20 21:08 Nasal Nares Right - Final Complete 06/27/20 16:47 Urine,Clean Catch Urine Culture - Final Mixed Gram Positive Organism Complete Laboratory Tests Test 07/03/20 05:31 07/03/20 08:10 07/03/20 09:10 07/03/20 17:31 POC Whole Blood Glucose 353 MG/DL (74-106) H Pending White Blood Count 12.5 K/UL (4.8-10.8) H Red Blood Count 4.88 M/UL (4.70-6.10) Hemoglobin 12.8 G/DL (14.2-18.0) L Hematocrit 39.4 % (42.0-52.0) L Mean Corpuscular Volume 81 FL (80-99) Mean Corpuscular Hemoglobin 26.3 PG (27.0-31.0) L Mean Corpuscular Hemoglobin Concent 32.5 G/DL (32.0-36.0) Red Cell Distribution Width 16.1 % (11.6-14.8) H Platelet Count 212 K/UL (150-450) Mean Platelet Volume 8.4 FL (6.5-10.1) Neutrophils (%) (Auto) 76.0 % (45.0-75.0) H Lymphocytes (%) (Auto) 11.2 % (20.0-45.0) L Monocytes (%) (Auto) 12.2 % (1.0-10.0) H Eosinophils (%) (Auto) 0.0 % (0.0-3.0) Basophils (%) (Auto) 0.6 % (0.0-2.0) Arterial Blood pH 7.445 (7.350-7.450) 7.468 (7.350-7.450) Arterial Blood Partial Pressure CO2 32.5 mmHg (35.0-45.0) L 32.9 mmHg (35.0-45.0) L Arterial Blood Partial Pressure O2 42.3 mmHg (75.0-100.0) 53.8 mmHg (75.0-100.0) L Arterial Blood HCO3 21.8 mmol/L (22.0-26.0) L 23.3 mmol/L (22.0-26.0) Arterial Blood Oxygen Saturation 77.6 % (95-100) *L 87.7 % (95-100) *L Arterial Blood Base Excess -1.4 (-2-2) 0.2 (-2-2) Robert Test Positive Positive Sodium Level 144 MMOL/L (136-145) Potassium Level 3.7 MMOL/L (3.5-5.1) Chloride Level 109 MMOL/L (98-107) H Carbon Dioxide Level 21 MMOL/L (21-32) Anion Gap 14 mmol/L (5-15) Blood Urea Nitrogen 44 mg/dL (7-18) H Creatinine 2.4 MG/DL (0.55-1.30) H Estimat Glomerular Filtration Rate 27.8 mL/min (>60) Glucose Level 319 MG/DL (74-106) H Calcium Level 8.2 MG/DL (8.5-10.1) L Total Bilirubin 1.0 MG/DL (0.2-1.0) Aspartate Amino Transf (AST/SGOT) 49 U/L (15-37) H Alanine Aminotransferase (ALT/SGPT) 20 U/L (12-78) Alkaline Phosphatase 82 U/L (46-116) Total Protein 6.6 G/DL (6.4-8.2) Albumin 2.2 G/DL (3.4-5.0) L Globulin 4.4 g/dL Albumin/Globulin Ratio 0.5 (1.0-2.7) L Test 07/03/20 22:14 POC Whole Blood Glucose Pending Current Medications Medications (Trade) Dose Ordered Sig/Td Route PRN Reason Start Time Stop Time Status Last Admin Dose Admin Acetaminophen (Tylenol) 650 mg Q4H PRN ORAL Mild Pain (Pain Scale 1-3) 06/27/20 13:30 07/27/20 13:29 06/27/20 21:11 Acetaminophen (Tylenol) 650 mg Q4H PRN ORAL fever 06/27/20 13:30 07/27/20 13:29 Albuterol Sulfate (Proventil MDI) 2 puff Q4H PRN INH Shortness of Breath 06/27/20 13:45 09/25/20 13:44 Ascorbic Acid (Vitamin C) 250 mg TWICE A DAY ORAL 07/02/20 18:00 08/01/20 17:59 07/03/20 18:18 Aspirin (ASA) 81 mg DAILY ORAL 06/27/20 13:30 08/11/20 13:29 07/02/20 09:10 Chlorhexidine Gluconate (Rosaroi-Hex 2%) 1 applic DAILY@2000 TOPIC 06/30/20 20:00 09/28/20 19:59 07/02/20 20:47 Dexamethasone Sodium Phosphate (Decadron 10mg/ ml Inj) 6 mg DAILY IV 06/30/20 12:00 07/09/20 12:00 07/03/20 09:09 Dextrose (Dextrose 50%) 25 ml Q30M PRN IV Hypoglycemia 06/27/20 13:30 09/25/20 13:29 Dextrose (Dextrose 50%) 50 ml Q30M PRN IV Hypoglycemia 06/27/20 13:30 09/25/20 13:29 Dronabinol (Marinol) 2.5 mg BID ORAL 07/02/20 18:00 09/30/20 17:59 07/03/20 18:18 Famotidine (Pepcid I.v.) 20 mg Q12HR IVP 06/30/20 12:00 07/30/20 11:59 07/03/20 22:05 Insulin Aspart (NovoLOG) BEFORE MEALS AND HS SUBQ 06/27/20 16:30 09/25/20 16:29 07/03/20 21:00 Insulin Aspart (NovoLOG) 20 units NOVOTIAC SUBQ 07/03/20 16:50 10/01/20 16:49 Insulin Detemir (Levemir) 35 units QHS SUBQ 06/30/20 21:00 09/28/20 20:59 07/03/20 21:00 Losartan Potassium (Cozaar) 50 mg EVERY 12 HOURS ORAL 06/30/20 21:15 07/30/20 21:14 07/03/20 22:05 Magnesium Hydroxide (Mom) 30 ml HSPRN PRN ORAL Constipation 06/27/20 13:30 07/27/20 13:29 Multivitamins (Multivitamins) 1 tab DAILY ORAL 07/03/20 09:00 08/02/20 08:59 Nitroglycerin (Ntg) 0.4 mg Q5M PRN SL Prn Chest Pain 06/27/20 13:30 07/27/20 13:29 Ondansetron HCl (Zofran) 4 mg Q6H PRN IVP Nausea & Vomiting 06/27/20 13:30 07/27/20 13:29 06/30/20 17:50 Pantoprazole (Protonix) 40 mg EVERY 12 HOURS IVP 07/01/20 21:00 07/31/20 20:59 07/03/20 22:04 Sodium 1,000 ml @ 50 mls/hr Q20H IV 06/29/20 10:00 07/29/20 09:59 07/03/20 01:08 Tamsulosin HCl (Flomax) 0.8 mg BEDTIME ORAL 06/30/20 21:00 07/30/20 20:59 07/03/20 22:04 Sangeetha Roger MD Jul 03, 2020 23:52
[2020-07-04] VITALS: BP 146/94
[2020-07-04] MEDS: 1/2NS w/KCl 20mEq 1000ml 1,000 ML IV SCH (02:26)
--- NOTE | 2020-07-04 03:00 | NUR ---
NURSE NOTES: Received order from Edwin to place pt in prone position r/t desaturation at 84% on non-rebreather 15L. Pt also became tachycardiac. Edwin stated if prone position is ineffective, pt should be intubated per MD. Prone position currently shows pt at 93%. Will endorse plan of care and new orders to AM shift.
[2020-07-04 04:00] VITALS: BP 126/86
[2020-07-04] MEDS: NovoLOG Insulin Flexpen SUBQ SCH ×7 (05:30→21:19)
[2020-07-04] MEDS: Vancomycin 750mg/D5W 275ml IVPB SCH ×4 (05:31→17:49)
--- NOTE | 2020-07-04 06:32 | General Progress Note ---
Subjective ROS Limited/Unobtainable: No Allergies: Coded Allergies: No Known Allergies (Unverified , 06/27/20) Objective Last 24 Hour Vital Signs Date Time Temp Pulse Resp B/P (MAP) Pulse Ox O2 Delivery O2 Flow Rate FiO2 07/04/20 00:00 96 07/04/20 00:00 98.1 95 20 146/94 (111) 96 07/03/20 22:05 134/82 07/03/20 21:00 Nasal Cannula 6.0 07/03/20 20:10 90 Non-Rebreather 15.0 100 07/03/20 20:00 97 07/03/20 20:00 97.9 98 20 134/82 (99) 93 07/03/20 16:00 101 07/03/20 16:00 97.8 110 22 125/78 (94) 91 07/03/20 15:39 109 20 91 07/03/20 12:00 105 07/03/20 12:00 97.3 107 22 123/81 (95) 94 07/03/20 10:41 109 07/03/20 09:31 114 20 91 Non-Rebreather 100 112 20 90 07/03/20 09:31 98 Non-Rebreather 100 07/03/20 09:21 112 20 90 Non-Rebreather 100 113 20 88 07/03/20 09:00 Nasal Cannula 6.0 07/03/20 08:47 115 20 91 Non-Rebreather 100 112 20 91 07/03/20 08:00 109 20 44 07/03/20 08:00 98.9 120 20 112/56 (74) 44 Intake and Output 07/03/20 07/04/20 19:00 07:00 Intake Total 800 ml 480 ml Output Total 600 ml 2500 ml Balance 200 ml -2020 ml Intake Oral 800 ml 480 ml Output Urine Total 600 ml 2500 ml # Voids 1 3 Laboratory Tests 07/03/20 08:10: White Blood Count 12.5H, Red Blood Count 4.88, Hemoglobin 12.8L, Hematocrit 39.4L, Mean Corpuscular Volume 81, Mean Corpuscular Hemoglobin 26.3L, Mean Corpuscular Hemoglobin Concent 32.5, Red Cell Distribution Width 16.1H, Platelet Count 212, Mean Platelet Volume 8.4, Neutrophils (%) (Auto) 76.0H, Lymphocytes (%) (Auto) 11.2L, Monocytes (%) (Auto) 12.2H, Eosinophils (%) (Auto) 0.0, Basophils (%) (Auto) 0.6, Arterial Blood pH 7.445, Arterial Blood Partial Pressure CO2 32.5L, Arterial Blood Partial Pressure O2 42.3*L, Arterial Blood HCO3 21.8L, Arterial Blood Oxygen Saturation 77.6*L, Arterial Blood Base Excess -1.4, Robert Test Positive, Sodium Level 144, Potassium Level 3.7, Chloride Level 109H, Carbon Dioxide Level 21, Anion Gap 14, Blood Urea Nitrogen 44H, Creatinine 2.4H, Estimat Glomerular Filtration Rate 27.8, Glucose Level 319H, Calcium Level 8.2L, Total Bilirubin 1.0, Aspartate Amino Transf (AST/SGOT) 49H, Alanine Aminotransferase (ALT/SGPT) 20, Alkaline Phosphatase 82, Total Protein 6.6, Albumin 2.2L, Globulin 4.4, Albumin/Globulin Ratio 0.5L 07/03/20 09:10: Arterial Blood pH 7.468H, Arterial Blood Partial Pressure CO2 32.9L, Arterial Blood Partial Pressure O2 53.8L, Arterial Blood HCO3 23.3, Arterial Blood Oxygen Saturation 87.7*L, Arterial Blood Base Excess 0.2, Robert Test Positive 07/03/20 17:31: POC Whole Blood Glucose [Pending] 07/03/20 22:14: POC Whole Blood Glucose [Pending] 07/04/20 05:38: POC Whole Blood Glucose 254H Height (Feet): 6 Height (Inches): 2.00 Weight (Pounds): 201 General Appearance: mild distress EENT: normal ENT inspection Neck: supple Cardiovascular: tachycardia Respiratory/Chest: decreased breath sounds Abdomen: soft, hypoactive bowel sounds Extremities: non-tender Assessment/Plan Assessment/Plan: 1. Diabetes. 2. GI bleed. 3. Diabetic foot wounds. 4. Renal insufficiency with creatinine of 2.1. 5. Hypoalbuminemia with albumin of 2.2. 6. Loss of appetite. 7. UTI. 8. COVID positive pneumonia. 9. DKA. 10. Hypertension. 11. Elevated troponin, most probably secondary to renal insufficiency. PLAN: At this time, given the stable hemoglobin of 13 and active COVID infection, we are going to hold off GI procedures. Currently on PPI and famotidine, which we will continue. Monitor hemoglobin and hematocrit, transfuse as needed. Marinol 2.5 mg p.o. twice a for appetite stimulant monitor po intake We will consider GI procedures if absolutely needed. Fredy Partida MD Jul 04, 2020 06:32
--- NOTE | 2020-07-04 07:50 | NUR ---
NURSE HAND-OFF REPORT: Important Events on Shift: Pt desaturated to 81% on non-rebreather, BIPAP not available at this time. Naim made aware of situation and ordered pt in prone position. Marked improvement in sattuartion, 93%. Pt needs to be reminded to stay in prone position. Patient Status: full code Diet: ccho low Pending Orders: xfer to [facility] Pending Results/Labs: phos, cbc, CXR Pending MD notification: none Latest Vital Signs: Temperature 98.1 , Pulse 98 , B/P 146 /94 , Respiratory Rate 20 , O2 SAT 96 , Room Air, O2 Flow Rate 6.0 . Vital Sign Comment: EKG Rhythm: Sinus Rhythm Rhythm change?: N MD Notified?: - MD Response: Latest Estrada Fall Score: 40 Fall Risk: Medium Risk Safety Measures: Call light Within Reach, Bed Alarm Zone 2, Side Rails Side Rails x2, Bed position Low and Locked. Fall Precautions: YES Yellow Socks Yellow Gown Door Sign Patient Fall Education Report given to Maria G Lay RN
--- NOTE | 2020-07-04 07:51 | NUR ---
NURSE NOTES: Pt received from Claire DECKER. pt in bed side-lying position, non-compliant with prone position, saturation at 88%. Educated him on importance of prone position. Helped move him to prone, saturation went up to 90%. Bed low and locked, call light within reach.
[2020-07-04 08:00] VITALS: BP 128/57
[2020-07-04 08:27] LABS: BASOPHILS % (AUTO) 0.5 % (0.0-2.0); HEMATOCRIT 41.3 % (42.0-52.0); LYMPHOCYTES % (AUTO) 12.4 % (20.0-45.0); MEAN CORPUSCULAR VOLUME 82 FL (80-99); MONOCYTES % (AUTO) 11.6 % (1.0-10.0); NEUTROPHILS % (AUTO) 75.5 % (45.0-75.0); PLATELET COUNT 173 K/UL (150-450); RED BLOOD COUNT 5.05 M/UL (4.70-6.10); RED CELL DISTRIBUTION WIDTH 15.6 % (11.6-14.8)
[2020-07-04 08:36] LABS: ALBUMIN 2.1 G/DL (3.4-5.0); ALBUMIN/GLOBULIN RATIO 0.5 (1.0-2.7); BILIRUBIN,TOTAL 1.2 MG/DL (0.2-1.0); CALCIUM 8.2 MG/DL (8.5-10.1); CREATININE 2.1 MG/DL (0.55-1.30); PHOSPHORUS 1.9 MG/DL (2.5-4.9); POTASSIUM 3.9 MMOL/L (3.5-5.1)
[2020-07-04 08:37] LABS: BILIRUBIN,DIRECT 0.2 MG/DL (0.0-0.3)
[2020-07-04] MEDS: Aspirin Baby 81mg ORAL SCH ×2 (09:00→09:53)
[2020-07-04] MEDS: Dronabinol 2.5mg Cap ORAL SCH ×3 (09:00→17:49)
[2020-07-04] MEDS: Ascorbic Acid 500mg tab ORAL SCH ×3 (09:00→17:49)
[2020-07-04] MEDS: Losartan 50mg tab ORAL SCH ×3 (09:00→21:17)
--- NOTE | 2020-07-04 09:00 | NUR ---
NURSE NOTES: Re non admin morning meds: Cozar parameters not met as bp below 130. Re the other medication, pt in prone position. de sats when placed in alonso (semi or high). Will let know. Addendum: 07/04/20 at 1750 by Maria G Joyce RN Please note, these medications wasted in RX bin in med room as they were taken into the Covid + room.
--- NOTE | 2020-07-04 09:21 | Pulmonology Progress Note ---
Subjective ROS Limited/Unobtainable: No Skin: Reports: rash Allergies: Coded Allergies: No Known Allergies (Unverified , 06/27/20) Subjective remains on 6 L O2 via NC desaturates intermittently ABG done yesterday with hypoxia no fevers no leukocytosis CXR 07/03 with small improvement CRP trending down Objective Last 24 Hour Vital Signs Date Time Temp Pulse Resp B/P (MAP) Pulse Ox O2 Delivery O2 Flow Rate FiO2 07/04/20 08:00 97.6 96 20 128/57 (80) 90 07/04/20 04:00 97.7 96 19 126/86 (99) 88 07/04/20 04:00 98 07/04/20 00:00 96 07/04/20 00:00 98.1 95 20 146/94 (111) 96 07/03/20 22:05 134/82 07/03/20 21:00 Nasal Cannula 6.0 07/03/20 20:10 90 Non-Rebreather 15.0 100 07/03/20 20:00 97 07/03/20 20:00 97.9 98 20 134/82 (99) 93 07/03/20 16:00 101 07/03/20 16:00 97.8 110 22 125/78 (94) 91 07/03/20 15:39 109 20 91 07/03/20 12:00 105 07/03/20 12:00 97.3 107 22 123/81 (95) 94 07/03/20 10:41 109 07/03/20 09:31 114 20 91 Non-Rebreather 100 112 20 90 07/03/20 09:31 98 Non-Rebreather 100 07/03/20 09:21 112 20 90 Non-Rebreather 100 113 20 88 Intake and Output 07/03/20 07/04/20 19:00 07:00 Intake Total 800 ml 480 ml Output Total 600 ml 2500 ml Balance 200 ml -2020 ml Intake Oral 800 ml 480 ml Output Urine Total 600 ml 2500 ml # Voids 1 3 Objective General Appearance: no apparent distress, alert , weak Lines, tubes and drains: peripheral HEENT: normocephalic, atraumatic, anicteric, mucous membranes moist, O2 6L via NC Neck: non-tender, normal alignment, supple Respiratory/Chest: lungs clear, no respiratory distress, no accessory muscle use Cardiovascular/Chest: regular SR Abdomen: normal bowel sounds, non tender, soft Extremities: normal range of motion, no calf tenderness, normal capillary refill Skin Exam: L foot ulcer Neurologic: no motor/sensory deficits, alert, weak Musculoskeletal: normal muscle bulk Laboratory Tests 07/03/20 17:31: POC Whole Blood Glucose [Pending] 07/03/20 22:14: POC Whole Blood Glucose [Pending] 07/04/20 05:38: POC Whole Blood Glucose 254H 07/04/20 07:45: White Blood Count 10.0, Red Blood Count 5.05, Hemoglobin 13.0L, Hematocrit 41.3L , Mean Corpuscular Volume 82, Mean Corpuscular Hemoglobin 25.8L, Mean Corpuscular Hemoglobin Concent 31.6L, Red Cell Distribution Width 15.6H, Platelet Count 173, Mean Platelet Volume 7.9, Neutrophils (%) (Auto) 75.5H, Lymphocytes (%) (Auto) 12.4L, Monocytes (%) (Auto) 11.6H, Eosinophils (%) (Auto) 0.0, Basophils (%) (Auto) 0.5, Sodium Level 146H, Potassium Level 3.9, Chloride Level 110H, Carbon Dioxide Level 28, Anion Gap 8, Blood Urea Nitrogen 35H, Creatinine 2.1H, Estimat Glomerular Filtration Rate 32.5, Glucose Level 240H, Calcium Level 8.2L, Phosphorus Level 1.9L, Total Bilirubin 1.2H, Direct Bi lirubin 0.2, Aspartate Amino Transf (AST/SGOT) 45H, Alanine Aminotransferase (ALT/SGPT) 20, Alkaline Phosphatase 94, Total Protein 6.5, Albumin 2.1L, Globulin 4.4, Albumin/Globulin Ratio 0.5L Current Medications Medications (Trade) Dose Ordered Sig/Td Route PRN Reason Start Time Stop Time Status Last Admin Dose Admin Acetaminophen (Tylenol) 650 mg Q4H PRN ORAL Mild Pain (Pain Scale 1-3) 06/27/20 13:30 07/27/20 13:29 06/27/20 21:11 Acetaminophen (Tylenol) 650 mg Q4H PRN ORAL fever 06/27/20 13:30 07/27/20 13:29 Albuterol Sulfate (Proventil MDI) 2 puff Q4H PRN INH Shortness of Breath 06/27/20 13:45 4/3/21 13:44 Ascorbic Acid (Vitamin C) 250 mg TWICE A DAY ORAL 07/02/20 18:00 08/01/20 17:59 07/03/20 18:18 Aspirin (ASA) 81 mg DAILY ORAL 06/27/20 13:30 08/11/20 13:29 07/02/20 09:10 Chlorhexidine Gluconate (Rosario-Hex 2%) 1 applic DAILY@2000 TOPIC 06/30/20 20:00 09/28/20 19:59 07/02/20 20:47 Dexamethasone Sodium Phosphate (Decadron 10mg/ ml Inj) 6 mg DAILY IV 06/30/20 12:00 07/09/20 12:00 07/03/20 09:09 Dextrose (Dextrose 50%) 25 ml Q30M PRN IV Hypoglycemia 06/27/20 13:30 09/25/20 13:29 Dextrose (Dextrose 50%) 50 ml Q30M PRN IV Hypoglycemia 06/27/20 13:30 09/25/20 13:29 Dronabinol (Marinol) 2.5 mg BID ORAL 07/02/20 18:00 09/30/20 17:59 07/03/20 18:18 Famotidine (Pepcid I.v.) 20 mg Q12HR IVP 06/30/20 12:00 07/30/20 11:59 07/03/20 22:05 Insulin Aspart (NovoLOG) BEFORE MEALS AND HS SUBQ 06/27/20 16:30 09/25/20 16:29 07/04/20 05:55 Insulin Aspart (NovoLOG) 20 units NOVOTIAC SUBQ 07/03/20 16:50 10/01/20 16:49 Insulin Detemir (Levemir) 35 units QHS SUBQ 06/30/20 21:00 09/28/20 20:59 07/03/20 21:00 Losartan Potassium (Cozaar) 50 mg EVERY 12 HOURS ORAL 06/30/20 21:15 07/30/20 21:14 07/03/20 22:05 Magnesium Hydroxide (Mom) 30 ml HSPRN PRN ORAL Constipation 06/27/20 13:30 07/27/20 13:29 Multivitamins (Multivitamins) 1 tab DAILY ORAL 07/03/20 09:00 08/02/20 08:59 Nitroglycerin (Ntg) 0.4 mg Q5M PRN SL Prn Chest Pain 06/27/20 13:30 07/27/20 13:29 Ondansetron HCl (Zofran) 4 mg Q6H PRN IVP Nausea & Vomiting 06/27/20 13:30 07/27/20 13:29 06/30/20 17:50 Pantoprazole (Protonix) 40 mg EVERY 12 HOURS IVP 07/01/20 21:00 07/31/20 20:59 07/03/20 22:04 Piperacillin Sod/ Tazobactam Sod 3.375 gm/Dextrose 100 ml @ 25 mls/hr Q8H IVPB 07/04/20 02:00 07/11/20 01:59 07/04/20 02:24 Sodium 1,000 ml @ 50 mls/hr Q20H IV 06/29/20 10:00 07/29/20 09:59 07/04/20 02:26 Tamsulosin HCl (Flomax) 0.8 mg BEDTIME ORAL 06/30/20 21:00 07/30/20 20:59 07/03/20 22:04 Vancomycin HCl (Vanco pharmacy to dose) 1 ea DAILY PRN MISC Per rx protocol 07/04/20 00:00 08/03/20 00:00 Vancomycin HCl 750 mg/Dextrose 275 ml @ 184 mls/hr Q12H IVPB 07/04/20 06:00 07/09/20 05:59 07/04/20 05:31 Assessment/Plan Assessment/Plan ASSESSMENT COVID 19 DKA Acute renal failure Hyperkalemia DM HTN Hypernatremia Elevated troponin, likely troponin leak 2 ARF PLAN OF CARE tele isolation Date of sx onset: 4 days ago prior to ED presentation Positive test: 06/27/20 O2 -NC 6L - titrate to keep sat > 92% HFA prn DEX Day # 5 ( 06/30 - ) started , given developed hypoxia REM not a candidate given ARF ID will start REM 07/04 with close monitoring of renal parameters given w orsening clinical condition a/c LMWH venous Duplex BLE 07/02 NGT D dimer 0,82, LDH 561, ferritin >2000 Trend CRP 62.3- 111.7-33.3 CXR 07/02 with small imrpovement started abx as per ID recs -> hydration and BS management - per primary anion gap closed ; off insulin gtt BS management per primary HgA1c -10.7, not at goal hypoglycemia protocol diabetic diet and diabetic teaching creat trending down, hyper K resolved 2 nd troponin mildly elevated likely troponin leak 2 to ARF cardio follows monitor volumes and renal function fup with consultants recs X ray L foot noted FC case discussed and evaluated by supervising physician Sophia Musa NP Jul 04, 2020 09:21
[2020-07-04] MEDS: dexAMETHasone 10mg/ml Inj IV SCH (09:53)
[2020-07-04] MEDS: Pantoprazole Inj IVP SCH ×2 (09:53→21:02)
[2020-07-04 12:00] VITALS: BP 129/75
--- NOTE | 2020-07-04 12:16 | NUR ---
NURSE NOTES: re novolong standing scale non admin, pt not eating, remaining in prone position as he desats when in semi alonso
--- NOTE | 2020-07-04 13:47 | Surgery Progress Note ---
Surgery Progress Note Subjective Additional Comments stable comfortable labs improved plain films noted chronic wounds dressings going well Objective Last 24 Hour Vital Signs Date Time Temp Pulse Resp B/P (MAP) Pulse Ox O2 Delivery O2 Flow Rate FiO2 07/04/20 12:00 114 07/04/20 12:00 96.8 69 20 129/75 (93) 96 07/04/20 09:00 Non-Rebreather 15.0 07/04/20 09:00 128/57 07/04/20 08:00 97.6 96 20 128/57 (80) 90 07/04/20 08:00 111 07/04/20 04:00 97.7 96 19 126/86 (99) 88 07/04/20 04:00 98 07/04/20 00:00 96 07/04/20 00:00 98.1 95 20 146/94 (111) 96 07/03/20 22:05 134/82 07/03/20 21:00 Nasal Cannula 6.0 07/03/20 20:10 90 Non-Rebreather 15.0 100 07/03/20 20:00 97 07/03/20 20:00 97.9 98 20 134/82 (99) 93 07/03/20 16:00 101 07/03/20 16:00 97.8 110 22 125/78 (94) 91 07/03/20 15:39 109 20 91 I&O Intake and Output 07/03/20 07/04/20 19:00 07:00 Intake Total 800 ml 480 ml Output Total 600 ml 2500 ml Balance 200 ml -2020 ml Intake Oral 800 ml 480 ml Output Urine Total 600 ml 2500 ml # Voids 1 3 Dressing: saturated Cardiovascular: RSR Respiratory: decreased breath sounds Abdomen: soft, non-tender, present bowel sounds Extremities: edema, no tenderness, no cyanosis, other Laboratory Tests Test 07/03/20 17:31 07/03/20 22:14 07/04/20 05:38 07/04/20 07:45 POC Whole Blood Glucose Pending Pending 254 MG/DL (74-106) H White Blood Count 10.0 K/UL (4.8-10.8) Red Blood Count 5.05 M/UL (4.70-6.10) Hemoglobin 13.0 G/DL (14.2-18.0) L Hematocrit 41.3 % (42.0-52.0) L Mean Corpuscular Volume 82 FL (80-99) Mean Corpuscular Hemoglobin 25.8 PG (27.0-31.0) L Mean Corpuscular Hemoglobin Concent 31.6 G/DL (32.0-36.0) L Red Cell Distribution Width 15.6 % (11.6-14.8) H Platelet Count 173 K/UL (150-450) Mean Platelet Volume 7.9 FL (6.5-10.1) Neutrophils (%) (Auto) 75.5 % (45.0-75.0) H Lymphocytes (%) (Auto) 12.4 % (20.0-45.0) L Monocytes (%) (Auto) 11.6 % (1.0-10.0) H Eosinophils (%) (Auto) 0.0 % (0.0-3.0) Basophils (%) (Auto) 0.5 % (0.0-2.0) Sodium Level 146 MMOL/L (136-145) H Potassium Level 3.9 MMOL/L (3.5-5.1) Chloride Level 110 MMOL/L (98-107) H Carbon Dioxide Level 28 MMOL/L (21-32) Anion Gap 8 mmol/L (5-15) Blood Urea Nitrogen 35 mg/dL (7-18) H Creatinine 2.1 MG/DL (0.55-1.30) H Estimat Glomerular Filtration Rate 32.5 mL/min (>60) Glucose Level 240 MG/DL (74-106) H Calcium Level 8.2 MG/DL (8.5-10.1) L Phosphorus Level 1.9 MG/DL (2.5-4.9) L Total Bilirubin 1.2 MG/DL (0.2-1.0) H Direct Bilirubin 0.2 MG/DL (0.0-0.3) Aspartate Amino Transf (AST/SGOT) 45 U/L (15-37) H Alanine Aminotransferase (ALT/SGPT) 20 U/L (12-78) Alkaline Phosphatase 94 U/L (46-116) Total Protein 6.5 G/DL (6.4-8.2) Albumin 2.1 G/DL (3.4-5.0) L Globulin 4.4 g/dL Albumin/Globulin Ratio 0.5 (1.0-2.7) L Plan Problems: (1) 2019 novel coronavirus detected Assessment & Plan: as per pulm ID onput pcp (2) DKA (diabetic ketoacidoses) (3) Dehydration (4) Dysphagia (5) Hypernatremia (6) Metabolic encephalopathy (7) Diabetic foot ulcer Assessment & Plan: Pt presented on admission with Multiple Ulcers R and L Feet. Full thickness stage 4 Ulcer plantar R 1st Metatarsal. Base of wound mixed necrosis and slough. Bone is palpable(L)2.5cm x (W)1.8cm x (D)0.4cm.Thick- callused borders noted. No erythema, induration or fluctuance periwound. Full Thickness stage 4 Ulcer Plantar L Foot (L)9cm x (W)3.5cmx (D)1.1cm, Undermined borders clockwise 6-9o'clock with tunneling at 7 o'clock by 4cm. Base of wound is génesis. Wound is malodorous with moderate amt of green exudate. Edges are semi-detached, and callused with an area of necrosis noted distally along borders. Distally,but in close Proximity is an area of dry eschar (L)1.5cm x (W)3.8cm.No erythema, induration or fluctuance periwound.Rocker foot Bottom noted L foot. Both heels are dry and callused. No evidence of skin breakdown sacrum. Tx plan: Cleanse wound plantar R 1st Metatarsal with Saline. Apply TheraHoney. Apply Cavilon Skin Barrier Periwound. Cover with Optifoam Daily and prn. Cleanse wound Plantar L Foot with Saline.Apply Therahoney. Apply Maxosrb Extra(Calcium Alginate) Apply Cavilon periwound ,Cover with ABD pad and wrap with Kerlix Daily and prn. Apply Betadine to Necrotic area Plantar L foot Daily and prn. Apply Moisture Barrier Paste to Sacrum. Cover with Optifoam drsg. Change every 3 days and prn. Reposition at least every 2 hours or as tolerated. Elevate both lower extremities with pillows with both heels floated off mattress. DAILY ESTIMATED NEEDS: Needs based on DM, wound, pulmonary 91.4kg 25-30 kcals/kg 4930-3134 total kcals 1.25-2 g protein/kg 114-183 g total protein 25-30 mL/kg 2078-0039 total fluid mLs NUTRITION DIAGNOSIS: Increased pro needs needs r/t wound healing as evidenced by advanced diabetic L heel wound, full eval pending, adm w. A1C 10.7, BG 697, uglu 4+. CURRENT DIET: CCHO LOW ms finely chopped PO DIET RECOMMENDATIONS: CCHO MED + DOUBLE PROTEIN PORTIONS ENTERAL NUTRITION RECOMMENDATIONS: If part of POC, rec non oral feeds to meet est kcal/pro needs ADDITIONAL RECOMMENDATIONS: 1) Glucerna 1 tetra TID w/ meals 2) Wound care: Add MARIO BID, Vit C 500mg BID, MVI w/ min qdaily Pending MD dowd 3) Non oral feeds if pt is unble to tolerate oral po 4) Maintain accurate bed scale weights Bones/joints: Query subtle lucency at the medial distal proximal phalanx near the joint space. Mild hallux valgus of the first tarsometatarsal joint. No acute fracture. No dislocation. Soft tissues: Lucency in the soft tissue medial aspect of the first interphalangeal joint, query ulceration. No radiopaque foreign body. (8) Urinary retention due to benign prostatic hyperplasia Walter Can Jul 04, 2020 13:47
[2020-07-04 16:00] VITALS: BP 122/67
[2020-07-04] MEDS ORDERED: Loading Dose:Remdesivir 200mg/NS 210ml IV SCH ×2 (16:00)
--- NOTE | 2020-07-04 18:00 | NUR ---
NURSE NOTES: re narayan and alisa at same time, Per pharmacist run narayan first.
--- NOTE | 2020-07-04 19:15 | NUR ---
NURSE NOTES: Received patient from BRIANNE Cummins. Patient verbally responsive; AOx3. On 15LPM nonrebreather mask, saturating at 88%. Repositioned patient on his left side, hob slightly elevated; saturation went up to 91%. IV atb running at this time; will run Zosyn once atb is consumed. Bed in lowest position, brakes engaged and bed alarm on. Call light placed within reach. Will continue to monitor.
--- NOTE | 2020-07-04 19:25 | NUR ---
NURSE HAND-OFF REPORT: Important Events on Shift:[Pt saturation over 92% when in side lying position and compliant with nonrebreather mask. often takes it off and needs to be reinforced on importance of staying on side and keepin mask on. please note pt not able to go completely prone, but sat in side lying is 94-96. Pt not tolerating po meds as staying in semi alonso causes him to desat. Explained to him that after non-rebreather we are limited in treating the poor oxygenation and that he must comply as best he can. Please note re hydration with 20 meq K, pt has had only 1 functioning IV all shift, pt is an incredibly difficult stick, 3 RN attempts resulted in 1 successful IV, priority given to antibiotics/antivirals ] Patient Status: [Full code] Diet: [CCHO low] Pending Orders: [] Pending Results/Labs:[] Pending MD notification:[] Latest Vital Signs: Temperature 98.6 , Pulse 96 , B/P 122 /67 , Respiratory Rate 19 , O2 SAT 97 , Room Air, O2 Flow Rate 15.0 . Vital Sign Comment: [] EKG Rhythm: Sinus Rhythm Rhythm change?: N MD Notified?: - MD Response: Latest Estrada Fall Score: 40 Fall Risk: Medium Risk Safety Measures: Call light Within Reach, Bed Alarm Zone 2, Side Rails Side Rails x2, Bed position Low and Locked. Fall Precautions: Yellow Socks Yellow Gown Door Sign Patient Fall Education Report given to [Jake DECKER].
[2020-07-04 20:00] VITALS: BP 141/81
[2020-07-04] MEDS: Dyna-Hex 2% Top Sol 2oz TOPIC SCH ×2 (20:00→21:02)
--- NOTE | 2020-07-04 20:19 | General Progress Note ---
Subjective ROS Limited/Unobtainable: Yes Allergies: Coded Allergies: No Known Allergies (Unverified , 06/27/20) Objective Last 24 Hour Vital Signs Date Time Temp Pulse Resp B/P (MAP) Pulse Ox O2 Delivery O2 Flow Rate FiO2 07/04/20 16:00 96 07/04/20 16:00 98.6 79 19 122/67 (85) 97 07/04/20 12:00 114 07/04/20 12:00 96.8 69 20 129/75 (93) 96 07/04/20 09:10 92 Non-Rebreather 15.0 100 07/04/20 09:00 Non-Rebreather 15.0 07/04/20 09:00 128/57 07/04/20 08:00 97.6 96 20 128/57 (80) 90 07/04/20 08:00 111 07/04/20 04:00 97.7 96 19 126/86 (99) 88 07/04/20 04:00 98 07/04/20 00:00 96 07/04/20 00:00 98.1 95 20 146/94 (111) 96 07/03/20 22:05 134/82 07/03/20 21:00 Nasal Cannula 6.0 Intake and Output 07/03/20 07/04/20 19:00 07:00 Intake Total 800 ml 480 ml Output Total 600 ml 2500 ml Balance 200 ml -2020 ml Intake Oral 800 ml 480 ml Output Urine Total 600 ml 2500 ml # Voids 1 3 Laboratory Tests 07/03/20 22:14: POC Whole Blood Glucose [Pending] 07/04/20 05:38: POC Whole Blood Glucose 254H 07/04/20 07:45: White Blood Count 10.0, Red Blood Count 5.05, Hemoglobin 13.0L, Hematocrit 41.3L , Mean Corpuscular Volume 82, Mean Corpuscular Hemoglobin 25.8L, Mean Corpuscular Hemoglobin Concent 31.6L, Red Cell Distribution Width 15.6H, Platelet Count 173, Mean Platelet Volume 7.9, Neutrophils (%) (Auto) 75.5H, Lymphocytes (%) (Auto) 12.4L, Monocytes (%) (Auto) 11.6H, Eosinophils (%) (Auto) 0.0, Basophils (%) (Auto) 0.5, Sodium Level 146H, Potassium Level 3.9, Chloride Level 110H, Carbon Dioxide Level 28, Anion Gap 8, Blood Urea Nitrogen 35H, Creatinine 2.1H, Estimat Glomerular Filtration Rate 32.5, Glucose Level 240H, Calcium Level 8.2L, Phosphorus Level 1.9L, Total Bilirubin 1.2H, Direct Bilirubin 0.2, Aspartate Amino Transf (AST/SGOT) 45H, Alanine Aminotransferase (ALT/SGPT) 20, Alkaline Phosphatase 94, Total Protein 6.5, Albumin 2.1L, Globulin 4.4, Albumin/Globulin Ratio 0.5L Height (Feet): 6 Height (Inches): 2.00 Weight (Pounds): 201 General Appearance: lethargic, confused, mild distress EENT: normal ENT inspection Neck: normal alignment Cardiovascular: regular rhythm Respiratory/Chest: accessory muscle use, rhonchi - bilaterally Abdomen: non tender, soft Edema: no edema noted Arm (L), no edema noted Arm (R), no edema noted Leg (L), no edema noted Leg (R), no edema noted Pedal (L), no edema noted Pedal (R), no edema noted Generalized Skin: other - foot ulcers Assessment/Plan Problem List: (1) DKA (diabetic ketoacidoses) ICD Codes: E11.10 - Type 2 diabetes mellitus with ketoacidosis without coma SNOMED: 80679868, 156005418 (2) 2019 novel coronavirus detected ICD Codes: U07.1 - COVID-19 SNOMED: 1176234055755932 (3) Dysphagia ICD Codes: R13.10 - Dysphagia, unspecified SNOMED: 34297814, 035845826 (4) Dehydration ICD Codes: E86.0 - Dehydration SNOMED: 57894010 (5) Hypernatremia ICD Codes: E87.0 - Hyperosmolality and hypernatremia SNOMED: 174043275 (6) Metabolic encephalopathy ICD Codes: G93.41 - Metabolic encephalopathy SNOMED: 01524112 (7) Diabetic foot ulcer ICD Codes: E11.621 - Type 2 diabetes mellitus with foot ulcer; L97.509 - Non- pressure chronic ulcer of other part of unspecified foot with unspecified severity SNOMED: 51917078, 349242361 (8) Urinary retention due to benign prostatic hyperplasia ICD Codes: N40.1 - Benign prostatic hyperplasia with lower urinary tract symptoms; R33.8 - Other retention of urine SNOMED: 137903153, 200977963, 432390004789710 Assessment/Plan: hydration, hypotonic iv, adjusted, increase novolog and levemir, monitor lab and mental status, wound care , puree diet as missing denture trying to reach family Kimberli [phone] reached 06/30, discussed high risk and code status worsening hypoxemia gi bleed with stable Hb so far on PPI, , full code per fa Darrian Michaels MD Jul 04, 2020 20:19
[2020-07-04] MEDS ORDERED: Levemir Flexpen SUBQ SCH (21:00)
[2020-07-04] MEDS: Tamsulosin 0.4mg cap ORAL SCH (21:17)
--- NOTE | 2020-07-04 22:15 | NUR ---
NURSE NOTES: Repositioned patient in side lying position with head slightly elevated. Nonrebreather on 15lpm, saturating at 100%. Will continue to closely monitor.
--- NOTE | 2020-07-04 22:49 | NUR ---
NURSE NOTES: Called [employer] to re-time 0200 Zosyn for 0400 instead. 1800 Zosyn was hung at 2000; currently running at a prescribed rate
--- NOTE | 2020-07-04 23:46 | Cardiology Progress Note ---
Subjective DATE OF SERVICE: Jul 04, 2020 Still on O2 suppl IVF ongoing - Free water deficit decreasing and renal fxn slightly better. CXR (07/03) Bilateral infiltrates worse on one side, slightly better on other side. Objective Last 24 Hour Vital Signs Date Time Temp Pulse Resp B/P (MAP) Pulse Ox O2 Delivery O2 Flow Rate FiO2 07/04/20 21:17 141/81 07/04/20 21:00 Non-Rebreather 15.0 07/04/20 20:18 96 Non-Rebreather 15.0 100 07/04/20 20:00 112 07/04/20 20:00 99.2 110 26 141/81 (101) 94 07/04/20 16:00 96 07/04/20 16:00 98.6 79 19 122/67 (85) 97 07/04/20 12:00 114 07/04/20 12:00 96.8 69 20 129/75 (93) 96 07/04/20 09:10 92 Non-Rebreather 15.0 100 07/04/20 09:00 Non-Rebreather 15.0 07/04/20 09:00 128/57 07/04/20 08:00 97.6 96 20 128/57 (80) 90 07/04/20 08:00 111 07/04/20 04:00 97.7 96 19 126/86 (99) 88 07/04/20 04:00 98 07/04/20 00:00 96 07/04/20 00:00 98.1 95 20 146/94 (111) 96 ROS: unable to obtain HEENT: normal ENT inspection RHYTHM: NSR, ST LUNGS: bilateral rhonchi CARDIAC: normal rate, regular rhythm, normal S1 and S2 ABDOMEN: normal bowel sounds, soft, no organomegaly EXTREMITIES: non-tender, trace edema Laboratory Tests Test 07/04/20 05:38 07/04/20 07:45 07/04/20 20:53 POC Whole Blood Glucose 254 MG/DL (74-106) H 345 MG/DL (74-106) H White Blood Count 10.0 K/UL (4.8-10.8) Red Blood Count 5.05 M/UL (4.70-6.10) Hemoglobin 13.0 G/DL (14.2-18.0) L Hematocrit 41.3 % (42.0-52.0) L Mean Corpuscular Volume 82 FL (80-99) Mean Corpuscular Hemoglobin 25.8 PG (27.0-31.0) L Mean Corpuscular Hemoglobin Concent 31.6 G/DL (32.0-36.0) L Red Cell Distribution Width 15.6 % (11.6-14.8) H Platelet Count 173 K/UL (150-450) Mean Platelet Volume 7.9 FL (6.5-10.1) Neutrophils (%) (Auto) 75.5 % (45.0-75.0) H Lymphocytes (%) (Auto) 12.4 % (20.0-45.0) L Monocytes (%) (Auto) 11.6 % (1.0-10.0) H Eosinophils (%) (Auto) 0.0 % (0.0-3.0) Basophils (%) (Auto) 0.5 % (0.0-2.0) Sodium Level 146 MMOL/L (136-145) H Potassium Level 3.9 MMOL/L (3.5-5.1) Chloride Level 110 MMOL/L (98-107) H Carbon Dioxide Level 28 MMOL/L (21-32) Anion Gap 8 mmol/L (5-15) Blood Urea Nitrogen 35 mg/dL (7-18) H Creatinine 2.1 MG/DL (0.55-1.30) H Estimat Glomerular Filtration Rate 32.5 mL/min (>60) Glucose Level 240 MG/DL (74-106) H Calcium Level 8.2 MG/DL (8.5-10.1) L Phosphorus Level 1.9 MG/DL (2.5-4.9) L Total Bilirubin 1.2 MG/DL (0.2-1.0) H Direct Bilirubin 0.2 MG/DL (0.0-0.3) Aspartate Amino Transf (AST/SGOT) 45 U/L (15-37) H Alanine Aminotransferase (ALT/SGPT) 20 U/L (12-78) Alkaline Phosphatase 94 U/L (46-116) Total Protein 6.5 G/DL (6.4-8.2) Albumin 2.1 G/DL (3.4-5.0) L Globulin 4.4 g/dL Albumin/Globulin Ratio 0.5 (1.0-2.7) L Assessment/Plan Assessment/Plan Covid 19 PNA Hypoxia CXR essentially unimproved Toxic and metabolic encephalopathies DKA dehydration/hypernatremia resolving Acute coronary insuff Continue isolation DC telemetry Plan of care/orders updated and discussed with [place] White MD Jul 04, 2020 23:46
[2020-07-05] VITALS: BP 115/82
--- NOTE | 2020-07-05 01:30 | NUR ---
NURSE NOTES: IV fluids resumed at 50ml/hr. spO2: 97% on 15l nonrebreather.
[2020-07-05 04:00] VITALS: BP 117/72
--- NOTE | 2020-07-05 04:12 | NUR ---
NURSE NOTES: New IV site: RAC#[id number]. Meagan hung and running. labs drawn
[2020-07-05 05:12] LABS: BASOPHILS % (AUTO) 0.5 % (0.0-2.0); HEMATOCRIT 38.5 % (42.0-52.0); HEMOGLOBIN 12.7 G/DL (14.2-18.0); LYMPHOCYTES % (AUTO) 10.4 % (20.0-45.0); MEAN CORPUSCULAR VOLUME 80 FL (80-99); MONOCYTES % (AUTO) 9.2 % (1.0-10.0); NEUTROPHILS % (AUTO) 79.9 % (45.0-75.0); PLATELET COUNT 147 K/UL (150-450); RED BLOOD COUNT 4.84 M/UL (4.70-6.10); RED CELL DISTRIBUTION WIDTH 16.2 % (11.6-14.8); WHITE BLOOD COUNT 9.9 K/UL (4.8-10.8)
[2020-07-05 05:42] LABS: ALBUMIN 2.1 G/DL (3.4-5.0); ALBUMIN/GLOBULIN RATIO 0.5 (1.0-2.7); BILIRUBIN,TOTAL 1.4 MG/DL (0.2-1.0); CALCIUM 8.5 MG/DL (8.5-10.1); CREATININE 2.2 MG/DL (0.55-1.30); POTASSIUM 4.1 MMOL/L (3.5-5.1)
[2020-07-05] MEDS: Vancomycin 750mg/D5W 275ml IVPB SCH ×2 (06:07)
[2020-07-05] MEDS: NovoLOG Insulin Flexpen SUBQ SCH ×7 (06:09→21:00)
--- NOTE | 2020-07-05 07:28 | NUR ---
NURSE HAND-OFF REPORT: Important Events on Shift:[Patient repositioned frequently; side lying and HOB elevated; goes up to 94-97%, but still with episodes of desaturation; Novolog standing order not given because patient not eating much] Patient Status: [Full code] Diet: [CCHO low] Pending Orders: [] Pending Results/Labs:[] Pending MD notification:[] Latest Vital Signs: Temperature 98.4 , Pulse 112 , B/P 117 /72 , Respiratory Rate 24 , O2 SAT 90 , Room Air, O2 Flow Rate 15.0 . Vital Sign Comment: [] EKG Rhythm: Sinus Tachycardia Rhythm change?: N MD Notified?: - MD Response: Latest Estrada Fall Score: 40 Fall Risk: Medium Risk Safety Measures: Call light Within Reach, Bed Alarm Zone 2, Side Rails Side Rails x2, Bed position Low and Locked. Fall Precautions: Yellow Socks Yellow Gown Door Sign Patient Fall Education Report given to [BRIANNE Vásquez].
[2020-07-05 08:00] VITALS: BP 101/61
--- NOTE | 2020-07-05 08:30 | NUR ---
NURSE NOTES: Patient seen in bed eating breakfast in high fowlers position with no acute signs of distress, and no complaints of pain. The patient is on NR with 15L and oxygen saturation within normal limits. Patient has a L hand 24G IV with 1/2NS with 20Meq of KCL running at 50cc/hr, IV is clean, Patent and intact. The patients bed is in lowest position, locked, side rails x3 and call light within reach.
[2020-07-05] MEDS: Losartan 50mg tab ORAL SCH ×2 (09:00→21:00)
--- NOTE | 2020-07-05 09:29 | NUR ---
RADIOLOGY: PCXR COMPLETED 0900HRS. NF
[2020-07-05] MEDS: Dronabinol 2.5mg Cap ORAL SCH ×2 (09:47→17:34)
[2020-07-05] MEDS: Aspirin Baby 81mg ORAL SCH (09:47)
[2020-07-05] MEDS: dexAMETHasone 10mg/ml Inj IV SCH (09:47)
[2020-07-05] MEDS: Pantoprazole Inj IVP SCH ×2 (09:50→21:20)
[2020-07-05] MEDS: Ascorbic Acid 500mg tab ORAL SCH ×2 (09:56→17:34)
--- NOTE | 2020-07-05 09:59 | Pulmonology Progress Note ---
Subjective ROS Limited/Unobtainable: Yes Skin: Reports: rash Allergies: Coded Allergies: No Known Allergies (Unverified , 06/27/20) Subjective now on NRM, removing frequently started on REM 07/04 no fevers no leukocytosis CXR 07/03 with small improvement Objective Last 24 Hour Vital Signs Date Time Temp Pulse Resp B/P (MAP) Pulse Ox O2 Delivery O2 Flow Rate FiO2 07/05/20 09:00 101/60 07/05/20 04:00 98.4 112 24 117/72 (87) 90 07/05/20 04:00 108 07/05/20 00:00 96 07/05/20 00:00 98.5 100 24 115/82 (93) 97 07/04/20 21:17 141/81 07/04/20 21:00 Non-Rebreather 15.0 07/04/20 20:18 96 Non-Rebreather 15.0 100 07/04/20 20:00 112 07/04/20 20:00 99.2 110 26 141/81 (101) 94 07/04/20 16:00 96 07/04/20 16:00 98.6 79 19 122/67 (85) 97 07/04/20 12:00 114 07/04/20 12:00 96.8 69 20 129/75 (93) 96 Intake and Output 07/04/20 07/05/20 19:00 07:00 Intake Total 250 ml 275 ml Output Total 1500 ml 1500 ml Balance -1250 ml -1225 ml Intake Oral 250 ml IV Total 275 ml Output Urine Total 1500 ml 1500 ml Objective General Appearance: no apparent distress, alert , weak Lines, tubes and drains: peripheral HEENT: normocephalic, atraumatic, anicteric, mucous membranes moist, O2 NTM Neck: non-tender, normal alignment, supple Respiratory/Chest: few isolated rhonchi Cardiovascular/Chest: regular SR Abdomen: normal bowel sounds, non tender, soft Extremities: normal range of motion, no calf tenderness, normal capillary refill Skin Exam: L foot ulcer Neurologic: no motor/sensory deficits, alert, weak Musculoskeletal: normal muscle bulk Laboratory Tests 07/04/20 20:53: POC Whole Blood Glucose 345H 07/05/20 04:00: White Blood Count 9.9, Red Blood Count 4.84, Hemoglobin 12.7L, Hematocrit 38.5L, Mean Corpuscular Volume 80, Mean Corpuscular Hemoglobin 26.2L, Mean Corpuscular Hemoglobin Concent 32.9, Red Cell Distribution Width 16.2H, Platelet Count 147L, Mean Platelet Volume 8.9, Neutrophils (%) (Auto) 79.9H, Lymphocytes (%) (Auto) 10.4L, Monocytes (%) (Auto) 9.2, Eosinophils (%) (Auto) 0.0, Basophils (%) (Auto) 0.5, Sodium Level 145, Potassium Level 4.1, Chloride Level 108H, Carbon Dioxide Level 29, Anion Gap 8, Blood Urea Nitrogen 35H, Creatinine 2.2H, Estimat Glomerular Filtration Rate 30.8, Glucose Level 247H, Calcium Level 8.5, Total Bilirubin 1.4H, Direct Bilirubin 0.3, Aspartate Amino Transf (AST/SGOT) 41H, Alanine Aminotransferase (ALT/SGPT) 15, Alkaline Phosphatase 101, C-Reactive Protein, Quantitative 20.4H, Total Protein 6.3L, Albumin 2.1L, Globulin 4.2, Albumin/Globulin Ratio 0.5L, Vancomycin Level Trough 8.6 Current Medications Medications (Trade) Dose Ordered Sig/Td Route PRN Reason Start Time Stop Time Status Last Admin Dose Admin Acetaminophen (Tylenol) 650 mg Q4H PRN ORAL Mild Pain (Pain Scale 1-3) 06/27/20 13:30 07/27/20 13:29 06/27/20 21:11 Acetaminophen (Tylenol) 650 mg Q4H PRN ORAL fever 06/27/20 13:30 07/27/20 13:29 Albuterol Sulfate (Proventil MDI) 2 puff Q4H PRN INH Shortness of Breath 06/27/20 13:45 09/25/20 13:44 Ascorbic Acid (Vitamin C) 250 mg TWICE A DAY ORAL 07/02/20 18:00 08/01/20 17:59 07/04/20 17:49 Aspirin (ASA) 81 mg DAILY ORAL 06/27/20 13:30 08/11/20 13:29 07/05/20 09:47 Chlorhexidine Gluconate (Rosario-Hex 2%) 1 applic DAILY@1999 TOPIC 06/30/20 20:00 09/28/20 19:59 07/02/20 20:47 Dexamethasone Sodium Phosphate (Decadron 10mg/ ml Inj) 6 mg DAILY IV 06/30/20 12:00 07/09/20 12:00 07/05/20 09:47 Dextrose (Dextrose 50%) 25 ml Q30M PRN IV Hypoglycemia 06/27/20 13:30 09/25/20 13:29 Dextrose (Dextrose 50%) 50 ml Q30M PRN IV Hypoglycemia 06/27/20 13:30 09/25/20 13:29 Dronabinol (Marinol) 2.5 mg BID ORAL 07/02/20 18:00 09/30/20 17:59 07/05/20 09:47 Famotidine (Pepcid I.v.) 20 mg Q12HR IVP 06/30/20 12:00 07/30/20 11:59 07/05/20 09:50 Insulin Aspart (NovoLOG) BEFORE MEALS AND HS SUBQ 06/27/20 16:30 09/25/20 16:29 07/05/20 06:09 Insulin Aspart (NovoLOG) 20 units NOVOTIAC SUBQ 07/03/20 16:50 10/01/20 16:49 Insulin Detemir (Levemir) 40 units QHS SUBQ 07/04/20 21:00 10/02/20 20:59 07/04/20 21:19 Losartan Potassium (Cozaar) 50 mg EVERY 12 HOURS ORAL 06/30/20 21:15 07/30/20 21:14 07/04/20 21:17 Magnesium Hydroxide (Mom) 30 ml HSPRN PRN ORAL Constipation 06/27/20 13:30 07/27/20 13:29 Multivitamins (Multivitamins) 1 tab DAILY ORAL 07/03/20 09:00 08/02/20 08:59 07/05/20 09:47 Nitroglycerin (Ntg) 0.4 mg Q5M PRN SL Prn Chest Pain 06/27/20 13:30 07/27/20 13:29 Ondansetron HCl (Zofran) 4 mg Q6H PRN IVP Nausea & Vomiting 06/27/20 13:30 07/27/20 13:29 06/30/20 17:50 Pantoprazole (Protonix) 40 mg EVERY 12 HOURS IVP 07/01/20 21:00 07/31/20 20:59 07/05/20 09:50 Piperacillin Sod/ Tazobactam Sod 3.375 gm/Dextrose 100 ml @ 25 mls/hr Q8H IVPB 07/05/20 04:00 07/12/20 03:59 07/05/20 04:12 Remdesivir 100 mg/ Sodium Chloride 250 ml @ 250 mls/hr Q24H IV 07/05/20 16:00 07/08/20 16:59 Sodium 1,000 ml @ 50 mls/hr Q20H IV 06/29/20 10:00 07/29/20 09:59 07/04/20 02:26 Tamsulosin HCl (Flomax) 0.8 mg BEDTIME ORAL 06/30/20 21:00 07/30/20 20:59 07/04/20 21:17 Vancomycin HCl (Vanco pharmacy to dose) 1 ea DAILY PRN MISC Per rx protocol 07/04/20 00:00 08/03/20 00:00 Vancomycin HCl 750 mg/Sodium Chloride 275 ml @ 184.015 mls/hr Q12H IVPB 07/05/20 18:00 07/10/20 17:59 Assessment/Plan Assessment/Plan ASSESSMENT COVID 19 DKA Acute renal failure Hyperkalemia DM HTN Hypernatremia Elevated troponin, likely troponin leak 2 ARF PLAN OF CARE tele isolation Date of sx onset: 4 days ago prior to ED presentation Positive test: 06/27/20 O2 -NRM -> titrate to keep sat > 92% HFA prn DEX Day # 6 ( 06/30 REM D#2 (07/04- )- per ID recs given clinical worsening despite renal failure a/c LMWH venous Duplex BLE 07/02 NGT D dimer 0,82, LDH 561, ferritin >2000 Trend CRP 62.3- 111.7-33.3-20.4 CXR 07/03 Bilateral mild hazy interstitial and airspace opacities slightly improved in the left lung, slightly worsened in the right lung. abx as per ID recs hydration and BS management - per primary anion gap closed ; off insulin gtt BS management per primary HgA1c -10.7, not at goal hypoglycemia protocol diabetic diet and diabetic teaching creat trending down, hyper K resolved 2 nd troponin mildly elevated likely troponin leak 2 to ARF cardio follows monitor volumes and renal function fup with consultants recs X ray L foot noted FC case discussed and evaluated by supervising physician Patient seen and examined with PIE CUTTER. Agree with above A&P as it reflects our joint deliberations. Remdesivir started 07/04 Remains on nonrebreather. Sophia Musa NP Jul 05, 2020 09:59 Yuan Pineda MD Jul 05, 2020 18:07
[2020-07-05 12:00] VITALS: BP 125/68
[2020-07-05] MEDS: 1/2NS w/KCl 20mEq 1000ml 1,000 ML IV SCH (12:39)
--- NOTE | 2020-07-05 13:49 | Diagnostic Imaging Report ---
Indication: Shortness of breath Technique: One view of the chest Comparison: 07/03/2020 Findings: The heart is borderline enlarged. Bilateral infiltrates are unchanged Impression: Unchanged, over 2 days, findings as above.
--- NOTE | 2020-07-05 14:06 | General Progress Note ---
Subjective ROS Limited/Unobtainable: No Allergies: Coded Allergies: No Known Allergies (Unverified , 06/27/20) Objective Last 24 Hour Vital Signs Date Time Temp Pulse Resp B/P (MAP) Pulse Ox O2 Delivery O2 Flow Rate FiO2 07/05/20 12:00 98 07/05/20 12:00 100.0 98 20 125/68 (87) 99 07/05/20 09:00 Non-Rebreather 15.0 07/05/20 09:00 101/60 07/05/20 08:00 97 07/05/20 08:00 100.0 98 20 101/61 (74) 94 07/05/20 04:00 98.4 112 24 117/72 (87) 90 07/05/20 04:00 108 07/05/20 00:00 96 07/05/20 00:00 98.5 100 24 115/82 (93) 97 07/04/20 21:17 141/81 07/04/20 21:00 Non-Rebreather 15.0 07/04/20 20:18 96 Non-Rebreather 15.0 100 07/04/20 20:00 112 07/04/20 20:00 99.2 110 26 141/81 (101) 94 07/04/20 16:00 96 07/04/20 16:00 98.6 79 19 122/67 (85) 97 Intake and Output 07/04/20 07/05/20 19:00 07:00 Intake Total 250 ml 275 ml Output Total 1500 ml 1500 ml Balance -1250 ml -1225 ml Intake Oral 250 ml IV Total 275 ml Output Urine Total 1500 ml 1500 ml Laboratory Tests 07/04/20 20:53: POC Whole Blood Glucose 345H 07/05/20 04:00: White Blood Count 9.9, Red Blood Count 4.84, Hemoglobin 12.7L, Hematocrit 38.5L, Mean Corpuscular Volume 80, Mean Corpuscular Hemoglobin 26.2L, Mean Corpuscular Hemoglobin Concent 32.9, Red Cell Distribution Width 16.2H, Platelet Count 147L, Mean Platelet Volume 8.9, Neutrophils (%) (Auto) 79.9H, Lymphocytes (%) (Auto) 10.4L, Monocytes (%) (Auto) 9.2, Eosinophils (%) (Auto) 0.0, Basophils (%) (Auto) 0.5, Sodium Level 145, Potassium Level 4.1, Chloride Level 108H, Carbon Dioxide Level 29, Anion Gap 8, Blood Urea Nitrogen 35H, Creatinine 2.2H, Estimat Glomerular Filtration Rate 30.8, Glucose Level 247H, Calcium Level 8.5, Total Bilirubin 1.4H, Direct Bilirubin 0.3, Aspartate Amino Transf (AST/SGOT) 41H, Alanine Aminotransferase (ALT/SGPT) 15, Alkaline Phosphatase 101, C-Reactive Protein, Quantitative 20.4H, Total Protein 6.3L, Albumin 2.1L, Globulin 4.2, Albumin/Globulin Ratio 0.5L, Vancomycin Level Trough 8.6 07/05/20 11:33: POC Whole Blood Glucose 246H Height (Feet): 6 Height (Inches): 2.00 Weight (Pounds): 201 General Appearance: no apparent distress EENT: normal ENT inspection Neck: supple Cardiovascular: normal rate Respiratory/Chest: decreased breath sounds Abdomen: normal bowel sounds, non tender, soft Extremities: non-tender Assessment/Plan Assessment/Plan: 1. Diabetes. 2. GI bleed. 3. Diabetic foot wounds. 4. Renal insufficiency with creatinine of 2.1. 5. Hypoalbuminemia with albumin of 2.2. 6. Loss of appetite. 7. UTI. 8. COVID positive pneumonia. 9. DKA. 10. Hypertension. 11. Elevated troponin, most probably secondary to renal insufficiency. PLAN: At this time, given the stable hemoglobin of 13 and active COVID infection, we are going to hold off GI procedures. Currently on PPI and famotidine, which we will continue. Monitor hemoglobin and hematocrit, transfuse as needed. Marinol 2.5 mg p.o. twice a for appetite stimulant monitor po intake We will consider GI procedures if absolutely needed. Fredy Partida MD Jul 05, 2020 14:06
--- NOTE | 2020-07-05 14:48 | NUR ---
CASE MANAGEMENT:REVIEW SI;COVID-19 VIRAL INFECTION. ARF. 100.0 112 24 141/81 90% 15L NRB BUN 35 CR 2.2 GLU 247 T-BILI 1.4 AST 41 CRP 20.4 ALB 2.1 IS;VANCOMYCIN IV Q12 ZOSYN IV Q8 REMDESIVIR IV QD PROTONIX IV Q12 FLOMAX PO HS MARINOL PO BID DECADRON IV QD Na IV TELE STATUS DCP;FROM HOME DC PLANNING HOME WITH HOME HEALTH WHEN STABLE
[2020-07-05 16:00] VITALS: BP 138/78
[2020-07-05] MEDS ORDERED: Maintenance Dose:Remdesivir 100mg/NS 230ml x 4 Doses IV SCH ×2 (16:00)
--- NOTE | 2020-07-05 16:09 | General Progress Note ---
Subjective ROS Limited/Unobtainable: Yes Constitutional: Reports: weakness Allergies: Coded Allergies: No Known Allergies (Unverified , 06/27/20) Objective Last 24 Hour Vital Signs Date Time Temp Pulse Resp B/P (MAP) Pulse Ox O2 Delivery O2 Flow Rate FiO2 07/05/20 12:00 98 07/05/20 12:00 100.0 98 20 125/68 (87) 99 07/05/20 09:00 Non-Rebreather 15.0 07/05/20 09:00 101/60 07/05/20 08:00 97 07/05/20 08:00 100.0 98 20 101/61 (74) 94 07/05/20 04:00 98.4 112 24 117/72 (87) 90 07/05/20 04:00 108 07/05/20 00:00 96 07/05/20 00:00 98.5 100 24 115/82 (93) 97 07/04/20 21:17 141/81 07/04/20 21:00 Non-Rebreather 15.0 07/04/20 20:18 96 Non-Rebreather 15.0 100 07/04/20 20:00 112 07/04/20 20:00 99.2 110 26 141/81 (101) 94 Intake and Output 07/04/20 07/05/20 19:00 07:00 Intake Total 250 ml 275 ml Output Total 1500 ml 1500 ml Balance -1250 ml -1225 ml Intake Oral 250 ml IV Total 275 ml Output Urine Total 1500 ml 1500 ml Laboratory Tests 07/04/20 20:53: POC Whole Blood Glucose 345H 07/05/20 04:00: White Blood Count 9.9, Red Blood Count 4.84, Hemoglobin 12.7L, Hematocrit 38.5L, Mean Corpuscular Volume 80, Mean Corpuscular Hemoglobin 26.2L, Mean Corpuscular Hemoglobin Concent 32.9, Red Cell Distribution Width 16.2H, Platelet Count 147L, Mean Platelet Volume 8.9, Neutrophils (%) (Auto) 79.9H, Lymphocytes (%) (Auto) 10.4L, Monocytes (%) (Auto) 9.2, Eosinophils (%) (Auto) 0.0, Basophils (%) (Auto) 0.5, Sodium Level 145, Potassium Level 4.1, Chloride Level 108H, Carbon Dioxide Level 29, Anion Gap 8, Blood Urea Nitrogen 35H, Creatinine 2.2H, Estimat Glomerular Filtration Rate 30.8, Glucose Level 247H, Calcium Level 8.5, Total Bilirubin 1.4H, Direct Bilirubin 0.3, Aspartate Amino Transf (AST/SGOT) 41H, Alanine Aminotransferase (ALT/SGPT) 15, Alkaline Phosphatase 101, C-Reactive Protein, Quantitative 20.4H, Total Protein 6.3L, Albumin 2.1L, Globulin 4.2, Albumin/Globulin Ratio 0.5L, Vancomycin Level Trough 8.6 07/05/20 11:33: POC Whole Blood Glucose 246H 07/05/20 15:42: POC Whole Blood Glucose 380H Height (Feet): 6 Height (Inches): 2.00 Weight (Pounds): 201 General Appearance: lethargic, confused EENT: normal ENT inspection Neck: normal alignment Cardiovascular: regular rhythm Respiratory/Chest: rhonchi - bilaterally Abdomen: non tender Edema: trace edema Neurologic: hole filler II-XII grossly normal Skin: other - foot ulcers Assessment/Plan Problem List: (1) DKA (diabetic ketoacidoses) ICD Codes: E11.10 - Type 2 diabetes mellitus with ketoacidosis without coma SNOMED: 55505809, 337564929 (2) 2019 novel coronavirus detected ICD Codes: U07.1 - COVID-19 SNOMED: 0190199876962713 (3) Dysphagia ICD Codes: R13.10 - Dysphagia, unspecified SNOMED: 85148547, 380043876 (4) Dehydration ICD Codes: E86.0 - Dehydration SNOMED: 86985004 (5) Hypernatremia ICD Codes: E87.0 - Hyperosmolality and hypernatremia SNOMED: 519038910 (6) Metabolic encephalopathy ICD Codes: G93.41 - Metabolic encephalopathy SNOMED: 74400985 (7) Diabetic foot ulcer ICD Codes: E11.621 - Type 2 diabetes mellitus with foot ulcer; L97.509 - Non- pressure chronic ulcer of other part of unspecified foot with unspecified severity SNOMED: 14000154, 919823132 (8) Urinary retention due to benign prostatic hyperplasia ICD Codes: N40.1 - Benign prostatic hyperplasia with lower urinary tract symptoms; R33.8 - Other retention of urine SNOMED: 651312151, 770818956, 980415693856211 Assessment/Plan: hydration, hypotonic iv, adjusted, increase novolog and levemir, monitor lab and mental status, wound care , puree diet as missing denture trying to reach family Kimberli [phone] reached 06/30, discussed high risk and code status worsening hypoxemia gi bleed with stable Hb so far on PPI, ,desat when nonrebreather removed, high risk full code per family Darrian Lara MD Jul 05, 2020 16:09
--- NOTE | 2020-07-05 17:39 | Infectious Diseases Prog Note ---
Assessment/Plan Assessment/Plan ASSESSMENT AND PLAN: 1. covid-19 infection with pna, worsening hypoxia, hx fevers, leukocytosis, sepsis, ? bacterial pna, ? HAP, ? evolving CAP, ? aspiration pna, arf left heel/right great toe wounds, ? infected, ? osteomyelitis left foot x- ray - dexamethasone and remdesivir - vancomycin and zosyn - surgery f/u on wounds, ? podiatry f/u - monitor hypoxia, labs and chest x-ray - poor prognosis 2. Acute kidney injury, elevated creatinine. 3. Diabetes. 4. Hypertension. 5. Diabetic ketoacidosis. 6. Anemia. 7. Diabetes and hypertension treatment per primary team. 8. Blood sugar treatment per primary team. 9. IV fluids. 10. The patient has no known drug allergies. 11. Social history is negative. 12. Family history is noncontributory. 13. MAR was noted. 14. Case discussed with RN. 15. wound care per protocol Subjective Constitutional: Reports: fever, fatigue, other - on NR HEENT: Reports: congestion Respiratory: Reports: shortness of breath Cardiovascular: Denies: chest pain Gastrointestinal/Abdominal: Denies: nausea, vomiting, diarrhea Genitourinary: Reports: other - + ashraf Neurologic: Reports: weakness Skin: Denies: rash Hematologic: Denies: bleeding Musculoskeletal: Denies: pain Allergies: Coded Allergies: No Known Allergies (Unverified , 06/27/20) Objective Last 24 Hour Vital Signs Date Time Temp Pulse Resp B/P (MAP) Pulse Ox O2 Delivery O2 Flow Rate FiO2 07/05/20 16:00 99.5 111 20 138/78 (98) 93 07/05/20 12:00 98 07/05/20 12:00 100.0 98 20 125/68 (87) 99 07/05/20 09:00 Non-Rebreather 15.0 07/05/20 09:00 101/60 07/05/20 08:00 97 07/05/20 08:00 100.0 98 20 101/61 (74) 94 07/05/20 04:00 98.4 112 24 117/72 (87) 90 07/05/20 04:00 108 07/05/20 00:00 96 07/05/20 00:00 98.5 100 24 115/82 (93) 97 07/04/20 21:17 141/81 07/04/20 21:00 Non-Rebreather 15.0 07/04/20 20:18 96 Non-Rebreather 15.0 100 07/04/20 20:00 112 07/04/20 20:00 99.2 110 26 141/81 (101) 94 Height (Feet): 6 Height (Inches): 2.00 Weight (Pounds): 201 General Appearance: no acute distress HEENT: normocephalic, atraumatic, anicteric Respiratory/Chest: crackles/rales, rhonchi - bilaterally Cardiovascular: normal rate, regular rhythm, no gallop/murmur, no JVD Abdomen: normal bowel sounds, soft, non tender, no organomegaly, non distended Genitourinary: other - + ashraf - urine slt cloudy Extremities: no cyanosis Skin: no rash Neurologic/Psychiatric: bark tanner II-XII grossly normal, alert, responsive Lymphatic: no neck adenopathy Musculoskeletal: no effusion Procedure: XRAY Foot Complete R EXAM: XR Right Foot Complete, 3 or More Views CLINICAL HISTORY: OSTEOMY TECHNIQUE: Frontal, lateral and oblique views of the right foot. COMPARISON: No relevant prior studies available. FINDINGS: Bones/joints: Query subtle lucency at the medial distal proximal phalanx near the joint space. Mild hallux valgus of the first tarsometatarsal joint. No acute fracture. No dislocation. Soft tissues: Lucency in the soft tissue medial aspect of the first interphalangeal joint, query ulceration. No radiopaque foreign body. IMPRESSION: Lucency in the soft tissue medial aspect of the first interphalangeal joint, query ulceration. Query subtle lucency at the medial distal proximal phalanx near the joint space. Consider MRI if there is further clinical concern. Procedure: XRAY Foot Complete L EXAM: XR Left Foot Complete, 3 or More Views CLINICAL HISTORY: OSTEOMY TECHNIQUE: Frontal, lateral and oblique views of the left foot. COMPARISON: No relevant prior studies available. FINDINGS: Bones/joints: There is periosteal thickening at the inferior aspect of the calcaneus worrisome for osteomyelitis. Diffuse osteopenia of the foot. Mild degenerative changes of tarsal bones. No acute fracture. No dislocation. Soft tissues: Soft tissue ulceration in the plantar aspect of the hindfoot. No radiopaque foreign body. IMPRESSION: 1. Soft tissue ulceration in the plantar aspect of the hindfoot. 2. There is periosteal thickening at the inferior aspect of the calcaneus worrisome for osteomyelitis. Chest x-ray - 06/28/20 - Procedure: XRAY Chest 1v Indication: Cough Technique: One view of the chest Comparison: 06/27/2020 Findings: Optimal exam currently; current exam also less heavily exposed. There are increased streaky peribronchovascular infiltrates in the left lung. There are also some atelectatic bands in the left midlung periphery which were evident previously. There are questionably streaky infiltrates in the right lung, as well as some atelectasis. This is probably unchanged allowing for differences in degree of inspiration and exposure technique Impression: Increasing left peripheral infiltrates, likely reflects increasing pneumonia. There are questionably minimal infiltrates on the right as well as some atelectasis Chest x-ray - 07/01/20 - Procedure: XRAY Chest 1v Indication: Shortness of breath Technique: One view of the chest Comparison: none Findings: Suboptimal inspiration. Left basilar infiltrate, right perihilar atelectasis and possible infiltrate are unchanged. Impression: Unchanged, over 2 days, findings as above. Chest x-ray - 07/03/20 - FINDINGS: Lungs: Bilateral mild hazy interstitial and airspace opacities are slightly improved in the left lung, slightly worsened in the right lung. Pleural space: May be small bilateral pleural effusions. No pneumothorax. Heart: Unremarkable. No cardiomegaly. Mediastinum: Unremarkable. Bones/joints: Unremarkable. IMPRESSION: 1. Bilateral mild hazy interstitial and airspace opacities are slightly improved in the left lung, slightly worsened in the right lung. 2. May be small bilateral pleural effusions. Chest x-ray - 07/05/20 - Procedure: XRAY Chest 1v Indication: Shortness of breath Technique: One view of the chest Comparison: 07/03/2020 Findings: The heart is borderline enlarged. Bilateral infiltrates are unchanged Impression: Unchanged, over 2 days, findings as above. Microbiology Date/Time Source Procedure Growth Status 06/28/20 21:08 Nasal Nares Right - Final Complete 06/28/20 21:08 Nasal Nares Right - Final Complete 06/27/20 16:47 Urine,Clean Catch Urine Culture - Final Mixed Gram Positive Organism Complete Microbiology Date/Time Source Procedure Growth Status 06/28/20 21:08 Nasal Nares Right - Final Complete 06/28/20 21:08 Nasal Nares Right - Final Complete 06/27/20 16:47 Urine,Clean Catch Urine Culture - Final Mixed Gram Positive Organism Complete Laboratory Tests Test 07/04/20 20:53 07/05/20 04:00 07/05/20 11:33 07/05/20 15:42 POC Whole Blood Glucose 345 MG/DL (74-106) H 246 MG/DL (74-106) H 380 MG/DL (74-106) H White Blood Count 9.9 K/UL (4.8-10.8) Red Blood Count 4.84 M/UL (4.70-6.10) Hemoglobin 12.7 G/DL (14.2-18.0) L Hematocrit 38.5 % (42.0-52.0) L Mean Corpuscular Volume 80 FL (80-99) Mean Corpuscular Hemoglobin 26.2 PG (27.0-31.0) L Mean Corpuscular Hemoglobin Concent 32.9 G/DL (32.0-36.0) Red Cell Distribution Width 16.2 % (11.6-14.8) H Platelet Count 147 K/UL (150-450) L Mean Platelet Volume 8.9 FL (6.5-10.1) Neutrophils (%) (Auto) 79.9 % (45.0-75.0) H Lymphocytes (%) (Auto) 10.4 % (20.0-45.0) L Monocytes (%) (Auto) 9.2 % (1.0-10.0) Eosinophils (%) (Auto) 0.0 % (0.0-3.0) Basophils (%) (Auto) 0.5 % (0.0-2.0) Sodium Level 145 MMOL/L (136-145) Potassium Level 4.1 MMOL/L (3.5-5.1) Chloride Level 108 MMOL/L (98-107) H Carbon Dioxide Level 29 MMOL/L (21-32) Anion Gap 8 mmol/L (5-15) Blood Urea Nitrogen 35 mg/dL (7-18) H Creatinine 2.2 MG/DL (0.55-1.30) H Estimat Glomerular Filtration Rate 30.8 mL/min (>60) Glucose Level 247 MG/DL (74-106) H Calcium Level 8.5 MG/DL (8.5-10.1) Total Bilirubin 1.4 MG/DL (0.2-1.0) H Direct Bilirubin 0.3 MG/DL (0.0-0.3) Aspartate Amino Transf (AST/SGOT) 41 U/L (15-37) H Alanine Aminotransferase (ALT/SGPT) 15 U/L (12-78) Alkaline Phosphatase 101 U/L (46-116) C-Reactive Protein, Quantitative 20.4 mg/dL (0.00-0.90) H Total Protein 6.3 G/DL (6.4-8.2) L Albumin 2.1 G/DL (3.4-5.0) L Globulin 4.2 g/dL Albumin/Globulin Ratio 0.5 (1.0-2.7) L Vancomycin Level Trough 8.6 ug/mL (5.0-12.0) Test 07/05/20 16:55 07/05/20 17:00 Arterial Blood pH 7.437 (7.350-7.450) Arterial Blood Partial Pressure CO2 38.7 mmHg (35.0-45.0) Arterial Blood Partial Pressure O2 48.5 mmHg (75.0-100.0) Arterial Blood HCO3 25.5 mmol/L (22.0-26.0) Arterial Blood Oxygen Saturation 85.5 % (95-100) *L Arterial Blood Base Excess 1.4 (-2-2) Robert Test Positive Random Vancomycin Level Pending Current Medications Medications (Trade) Dose Ordered Sig/Td Route PRN Reason Start Time Stop Time Status Last Admin Dose Admin Acetaminophen (Tylenol) 650 mg Q4H PRN ORAL Mild Pain (Pain Scale 1-3) 06/27/20 13:30 07/27/20 13:29 06/27/20 21:11 Acetaminophen (Tylenol) 650 mg Q4H PRN ORAL fever 06/27/20 13:30 07/27/20 13:29 Albuterol Sulfate (Proventil MDI) 2 puff Q4H PRN INH Shortness of Breath 06/27/20 13:45 09/25/20 13:44 Ascorbic Acid (Vitamin C) 250 mg TWICE A DAY ORAL 07/02/20 18:00 08/01/20 17:59 07/05/20 09:56 Aspirin (ASA) 81 mg DAILY ORAL 06/27/20 13:30 08/11/20 13:29 07/05/20 09:47 Chlorhexidine Gluconate (Rosario-Hex 2%) 1 applic DAILY@2000 TOPIC 06/30/20 20:00 09/28/20 19:59 07/02/20 20:47 Dexamethasone Sodium Phosphate (Decadron 10mg/ ml Inj) 6 mg DAILY IV 06/30/20 12:00 07/09/20 12:00 07/05/20 09:47 Dextrose (Dextrose 50%) 25 ml Q30M PRN IV Hypoglycemia 06/27/20 13:30 09/25/20 13:29 Dextrose (Dextrose 50%) 50 ml Q30M PRN IV Hypoglycemia 06/27/20 13:30 09/25/20 13:29 Dronabinol (Marinol) 2.5 mg BID ORAL 07/02/20 18:00 09/30/20 17:59 07/05/20 09:47 Famotidine (Pepcid I.v.) 20 mg Q12HR IVP 06/30/20 12:00 07/30/20 11:59 07/05/20 09:50 Insulin Aspart (NovoLOG) BEFORE MEALS AND HS SUBQ 06/27/20 16:30 09/25/20 16:29 07/05/20 16:55 Insulin Aspart (NovoLOG) 25 units NOVOTIAC SUBQ 07/05/20 16:50 10/03/20 16:49 07/05/20 16:56 Insulin Detemir (Levemir) 45 units QHS SUBQ 07/05/20 21:00 10/03/20 20:59 Losartan Potassium (Cozaar) 50 mg EVERY 12 HOURS ORAL 06/30/20 21:15 07/30/20 21:14 07/04/20 21:17 Magnesium Hydroxide (Mom) 30 ml HSPRN PRN ORAL Constipation 06/27/20 13:30 07/27/20 13:29 Multivitamins (Multivitamins) 1 tab DAILY ORAL 07/03/20 09:00 08/02/20 08:59 07/05/20 09:47 Nitroglycerin (Ntg) 0.4 mg Q5M PRN SL Prn Chest Pain 06/27/20 13:30 07/27/20 13:29 Ondansetron HCl (Zofran) 4 mg Q6H PRN IVP Nausea & Vomiting 06/27/20 13:30 07/27/20 13:29 06/30/20 17:50 Pantoprazole (Protonix) 40 mg EVERY 12 HOURS IVP 07/01/20 21:00 07/31/20 20:59 07/05/20 09:50 Piperacillin Sod/ Tazobactam Sod 3.375 gm/Dextrose 100 ml @ 25 mls/hr Q8H IVPB 07/05/20 04:00 07/12/20 03:59 07/05/20 11:48 Remdesivir 100 mg/ Sodium Chloride 250 ml @ 250 mls/hr Q24H IV 07/05/20 16:00 07/08/20 16:59 07/05/20 16:42 Sodium 1,000 ml @ 30 mls/hr Q24H IV 06/29/20 10:00 07/29/20 09:59 07/05/20 12:39 Tamsulosin HCl (Flomax) 0.8 mg BEDTIME ORAL 06/30/20 21:00 07/30/20 20:59 07/04/20 21:17 Vancomycin HCl (Vanco pharmacy to dose) 1 ea DAILY PRN MISC Per rx protocol 07/04/20 00:00 08/03/20 00:00 Vancomycin HCl 750 mg/Sodium Chloride 275 ml @ 184.015 mls/hr Q12H IVPB 07/05/20 18:00 07/10/20 17:59 Sangeetha Roger MD Jul 05, 2020 17:39
[2020-07-05] MEDS: Vancomycin 1.25gm/250ml Premix IVPB SCH (18:00)
[2020-07-05] MEDS ORDERED: Vancomycin 750 MG in NS 275 ML IVPB SCH (18:00)
--- NOTE | 2020-07-05 19:00 | Surgery Progress Note ---
Surgery Progress Note Subjective Additional Comments on face mask states he feels well no n/v tolerating diet Objective Last 24 Hour Vital Signs Date Time Temp Pulse Resp B/P (MAP) Pulse Ox O2 Delivery O2 Flow Rate FiO2 07/05/20 16:00 99.5 111 20 138/78 (98) 93 07/05/20 16:00 115 07/05/20 12:00 98 07/05/20 12:00 100.0 98 20 125/68 (87) 99 07/05/20 09:18 92 Non-Rebreather 15.0 100 07/05/20 09:00 Non-Rebreather 15.0 07/05/20 09:00 101/60 07/05/20 08:00 97 07/05/20 08:00 100.0 98 20 101/61 (74) 94 07/05/20 04:00 98.4 112 24 117/72 (87) 90 07/05/20 04:00 108 07/05/20 00:00 96 07/05/20 00:00 98.5 100 24 115/82 (93) 97 07/04/20 21:17 141/81 07/04/20 21:00 Non-Rebreather 15.0 07/04/20 20:18 96 Non-Rebreather 15.0 100 07/04/20 20:00 112 07/04/20 20:00 99.2 110 26 141/81 (101) 94 I&O Intake and Output 07/04/20 07/05/20 19:00 07:00 Intake Total 250 ml 275 ml Output Total 1500 ml 1500 ml Balance -1250 ml -1225 ml Intake Oral 250 ml IV Total 275 ml Output Urine Total 1500 ml 1500 ml Dressing: saturated Cardiovascular: RSR Respiratory: clear, decreased breath sounds Abdomen: soft, non-tender, present bowel sounds, non-distended Extremities: other Laboratory Tests Test 07/04/20 20:53 07/05/20 04:00 07/05/20 11:33 07/05/20 15:42 POC Whole Blood Glucose 345 MG/DL (74-106) H 246 MG/DL (74-106) H 380 MG/DL (74-106) H White Blood Count 9.9 K/UL (4.8-10.8) Red Blood Count 4.84 M/UL (4.70-6.10) Hemoglobin 12.7 G/DL (14.2-18.0) L Hematocrit 38.5 % (42.0-52.0) L Mean Corpuscular Volume 80 FL (80-99) Mean Corpuscular Hemoglobin 26.2 PG (27.0-31.0) L Mean Corpuscular Hemoglobin Concent 32.9 G/DL (32.0-36.0) Red Cell Distribution Width 16.2 % (11.6-14.8) H Platelet Count 147 K/UL (150-450) L Mean Platelet Volume 8.9 FL (6.5-10.1) Neutrophils (%) (Auto) 79.9 % (45.0-75.0) H Lymphocytes (%) (Auto) 10.4 % (20.0-45.0) L Monocytes (%) (Auto) 9.2 % (1.0-10.0) Eosinophils (%) (Auto) 0.0 % (0.0-3.0) Basophils (%) (Auto) 0.5 % (0.0-2.0) Sodium Level 145 MMOL/L (136-145) Potassium Level 4.1 MMOL/L (3.5-5.1) Chloride Level 108 MMOL/L (98-107) H Carbon Dioxide Level 29 MMOL/L (21-32) Anion Gap 8 mmol/L (5-15) Blood Urea Nitrogen 35 mg/dL (7-18) H Creatinine 2.2 MG/DL (0.55-1.30) H Estimat Glomerular Filtration Rate 30.8 mL/min (>60) Glucose Level 247 MG/DL (74-106) H Calcium Level 8.5 MG/DL (8.5-10.1) Total Bilirubin 1.4 MG/DL (0.2-1.0) H Direct Bilirubin 0.3 MG/DL (0.0-0.3) Aspartate Amino Transf (AST/SGOT) 41 U/L (15-37) H Alanine Aminotransferase (ALT/SGPT) 15 U/L (12-78) Alkaline Phosphatase 101 U/L (46-116) C-Reactive Protein, Quantitative 20.4 mg/dL (0.00-0.90) H Total Protein 6.3 G/DL (6.4-8.2) L Albumin 2.1 G/DL (3.4-5.0) L Globulin 4.2 g/dL Albumin/Globulin Ratio 0.5 (1.0-2.7) L Vancomycin Level Trough 8.6 ug/mL (5.0-12.0) Test 07/05/20 16:55 07/05/20 17:00 Arterial Blood pH 7.437 (7.350-7.450) Arterial Blood Partial Pressure CO2 38.7 mmHg (35.0-45.0) Arterial Blood Partial Pressure O2 48.5 mmHg (75.0-100.0) Arterial Blood HCO3 25.5 mmol/L (22.0-26.0) Arterial Blood Oxygen Saturation 85.5 % (95-100) *L Arterial Blood Base Excess 1.4 (-2-2) Robert Test Positive Random Vancomycin Level 8.2 ug/mL Plan Problems: (1) 2019 novel coronavirus detected Assessment & Plan: as per pulm ID onput pcp (2) DKA (diabetic ketoacidoses) (3) Dehydration (4) Dysphagia (5) Hypernatremia (6) Metabolic encephalopathy (7) Diabetic foot ulcer Assessment & Plan: Pt presented on admission with Multiple Ulcers R and L Feet. Full thickness stage 4 Ulcer plantar R 1st Metatarsal. Base of wound mixed necrosis and slough. Bone is palpable(L)2.5cm x (W)1.8cm x (D)0.4cm.Thick- callused borders noted. No erythema, induration or fluctuance periwound. Full Thickness stage 4 Ulcer Plantar L Foot (L)9cm x (W)3.5cmx (D)1.1cm, Undermined borders clockwise 6-9o'clock with tunneling at 7 o'clock by 4cm. Base of wound is génesis. Wound is malodorous with moderate amt of green exudate. Edges are semi-detached, and callused with an area of necrosis noted distally along borders. Distally,but in close Proximity is an area of dry eschar (L)1.5cm x (W)3.8cm.No erythema, induration or fluctuance periwound.Rocker foot Bottom noted L foot. Both heels are dry and callused. No evidence of skin breakdown sacrum. Tx plan: Cleanse wound plantar R 1st Metatarsal with Saline. Apply TheraHoney. Apply Cav ilon Skin Barrier Periwound. Cover with Optifoam Daily and prn. Cleanse wound Plantar L Foot with Saline.Apply Therahoney. Apply Maxosrb Extra(Calcium Alginate) Apply Cavilon periwound ,Cover with ABD pad and wrap with Kerlix Daily and prn. Apply Betadine to Necrotic area Plantar L foot Daily and prn. Apply Moisture Barrier Paste to Sacrum. Cover with Optifoam drsg. Change every 3 days and prn. Reposition at least every 2 hours or as tolerated. Elevate both lower extremities with pillows with both heels floated off mattress. DAILY ESTIMATED NEEDS: Needs based on DM, wound, pulmonary 91.4kg 25-30 kcals/kg 9595-2450 total kcals 1.25-2 g protein/kg 114-183 g total protein 25-30 mL/kg 3529-2711 total fluid mLs NUTRITION DIAGNOSIS: Increased pro needs needs r/t wound healing as evidenced by advanced diabetic L heel wound, full eval pending, adm w. A1C 10.7, BG 697, uglu 4+. CURRENT DIET: CCHO LOW ms finely chopped PO DIET RECOMMENDATIONS: CCHO MED + DOUBLE PROTEIN PORTIONS ENTERAL NUTRITION RECOMMENDATIONS: If part of POC, rec non oral feeds to meet est kcal/pro needs ADDITIONAL RECOMMENDATIONS: 1) Glucerna 1 tetra TID w/ meals 2) Wound care: Add MARIO BID, Vit C 500mg BID, MVI w/ min qdaily Pending MD dowd 3) Non oral feeds if pt is unble to tolerate oral po 4) Maintain accurate bed scale weights Bones/joints: Query subtle lucency at the medial distal proximal phalanx near the joint space. Mild hallux valgus of the first tarsometatarsal joint. No acute fracture. No dislocation. Soft tissues: Lucency in the soft tissue medial aspect of the first interphalangeal joint, query ulceration. No radiopaque foreign body. (8) Urinary retention due to benign prostatic hyperplasia Walter Can Jul 05, 2020 19:00
[2020-07-05 20:00] VITALS: BP 107/67
[2020-07-05] MEDS: Dyna-Hex 2% Top Sol 2oz TOPIC SCH (20:00)
--- NOTE | 2020-07-05 20:40 | NUR ---
NURSE NOTES: Patient transferred to M/S. Belongings verified and acknowledged, patient in stable condition with NR 15L and O2 saturation within normal limits. Patient bed placed in lowest position, locked, side rails x3 and call light within reach.
--- NOTE | 2020-07-05 20:45 | NUR ---
NURSE NOTES: Received patient awake, non-verbal, on non-rebreather mask, O2 sat94%, on high back rest.
[2020-07-05] MEDS ORDERED: Levemir Flexpen SUBQ SCH (21:00)
[2020-07-05] MEDS: Tamsulosin 0.4mg cap ORAL SCH (21:21)
--- NOTE | 2020-07-05 21:21 | Cardiology Progress Note ---
Subjective DATE OF SERVICE: Jul 05, 2020 Still on O2 suppl IVF ongoing - Free water deficit decreasing and renal fxn slightly stabilized. CXR (07/03) Bilateral infiltrates worse on one side, slightly better on other side. Objective Last 24 Hour Vital Signs Date Time Temp Pulse Resp B/P (MAP) Pulse Ox O2 Delivery O2 Flow Rate FiO2 07/05/20 20:00 98.2 110 24 107/67 (80) 94 07/05/20 16:00 99.5 111 20 138/78 (98) 93 07/05/20 16:00 115 07/05/20 12:00 98 07/05/20 12:00 100.0 98 20 125/68 (87) 99 07/05/20 09:18 92 Non-Rebreather 15.0 100 07/05/20 09:00 Non-Rebreather 15.0 07/05/20 09:00 101/60 07/05/20 08:00 97 07/05/20 08:00 100.0 98 20 101/61 (74) 94 07/05/20 04:00 98.4 112 24 117/72 (87) 90 07/05/20 04:00 108 07/05/20 00:00 96 07/05/20 00:00 98.5 100 24 115/82 (93) 97 ROS: unable to obtain HEENT: normal ENT inspection RHYTHM: NSR, ST LUNGS: bilateral rhonchi CARDIAC: normal rate, regular rhythm, normal S1 and S2 ABDOMEN: normal bowel sounds, soft, no organomegaly EXTREMITIES: non-tender, trace edema Laboratory Tests Test 07/05/20 04:00 07/05/20 11:33 07/05/20 15:42 07/05/20 16:55 White Blood Count 9.9 K/UL (4.8-10.8) Red Blood Count 4.84 M/UL (4.70-6.10) Hemoglobin 12.7 G/DL (14.2-18.0) L Hematocrit 38.5 % (42.0-52.0) L Mean Corpuscular Volume 80 FL (80-99) Mean Corpuscular Hemoglobin 26.2 PG (27.0-31.0) L Mean Corpuscular Hemoglobin Concent 32.9 G/DL (32.0-36.0) Red Cell Distribution Width 16.2 % (11.6-14.8) H Platelet Count 147 K/UL (150-450) L Mean Platelet Volume 8.9 FL (6.5-10.1) Neutrophils (%) (Auto) 79.9 % (45.0-75.0) H Lymphocytes (%) (Auto) 10.4 % (20.0-45.0) L Monocytes (%) (Auto) 9.2 % (1.0-10.0) Eosinophils (%) (Auto) 0.0 % (0.0-3.0) Basophils (%) (Auto) 0.5 % (0.0-2.0) Sodium Level 145 MMOL/L (136-145) Potassium Level 4.1 MMOL/L (3.5-5.1) Chloride Level 108 MMOL/L (98-107) H Carbon Dioxide Level 29 MMOL/L (21-32) Anion Gap 8 mmol/L (5-15) Blood Urea Nitrogen 35 mg/dL (7-18) H Creatinine 2.2 MG/DL (0.55-1.30) H Estimat Glomerular Filtration Rate 30.8 mL/min (>60) Glucose Level 247 MG/DL (74-106) H Calcium Level 8.5 MG/DL (8.5-10.1) Total Bilirubin 1.4 MG/DL (0.2-1.0) H Direct Bilirubin 0.3 MG/DL (0.0-0.3) Aspartate Amino Transf (AST/SGOT) 41 U/L (15-37) H Alanine Aminotransferase (ALT/SGPT) 15 U/L (12-78) Alkaline Phosphatase 101 U/L (46-116) C-Reactive Protein, Quantitative 20.4 mg/dL (0.00-0.90) H Total Protein 6.3 G/DL (6.4-8.2) L Albumin 2.1 G/DL (3.4-5.0) L Globulin 4.2 g/dL Albumin/Globulin Ratio 0.5 (1.0-2.7) L Vancomycin Level Trough 8.6 ug/mL (5.0-12.0) POC Whole Blood Glucose 246 MG/DL (74-106) H 380 MG/DL (74-106) H Arterial Blood pH 7.437 (7.350-7.450) Arterial Blood Partial Pressure CO2 38.7 mmHg (35.0-45.0) Arterial Blood Partial Pressure O2 48.5 mmHg (75.0-100.0) Arterial Blood HCO3 25.5 mmol/L (22.0-26.0) Arterial Blood Oxygen Saturation 85.5 % (95-100) *L Arterial Blood Base Excess 1.4 (-2-2) Robert Test Positive Test 07/05/20 17:00 Random Vancomycin Level 8.2 ug/mL Assessment/Plan Assessment/Plan Covid 19 PNA Hypoxia CXR essentially unimproved Toxic and metabolic encephalopathies DKA dehydration/hypernatremia resolving Acute coronary insuff Continue isolation Plan of care/orders updated and discussed with West White MD Jul 05, 2020 21:21
[2020-07-06] VITALS: BP 133/54
[2020-07-06 04:18] VITALS: BP 104/49
[2020-07-06] MEDS: Vancomycin 1.25gm/250ml Premix IVPB SCH (04:55)
[2020-07-06] MEDS: NovoLOG Insulin Flexpen SUBQ SCH ×4 (04:56→11:46)
--- NOTE | 2020-07-06 07:17 | NUR ---
HAND-OFF: Report given to Pop Rubin RN.
--- NOTE | 2020-07-06 07:21 | NUR ---
NURSE NOTES: Received patient from BRIANNE Emmanuel. Patient verbally responsive; AOx3. On 15LPM nonrebreather mask, previous shift endorsed that patient saturates @ 93-94%, patient removes NR at times. Rn instructed patient to keep Non- rebreather on at all times. Bed in lowest position, brakes engaged and bed alarm on. Call light placed within reach. Will continue to monitor.
[2020-07-06 07:26] LABS: BASOPHILS % (AUTO) 0.8 % (0.0-2.0); HEMATOCRIT 36.9 % (42.0-52.0); HEMOGLOBIN 11.8 G/DL (14.2-18.0); LYMPHOCYTES % (AUTO) 8.8 % (20.0-45.0); MEAN CORPUSCULAR VOLUME 82 FL (80-99); MONOCYTES % (AUTO) 8.8 % (1.0-10.0); NEUTROPHILS % (AUTO) 81.6 % (45.0-75.0); PLATELET COUNT 143 K/UL (150-450); RED BLOOD COUNT 4.52 M/UL (4.70-6.10); RED CELL DISTRIBUTION WIDTH 15.8 % (11.6-14.8); WHITE BLOOD COUNT 14.5 K/UL (4.8-10.8)
[2020-07-06 07:52] LABS: ALBUMIN/GLOBULIN RATIO 0.5 (1.0-2.7); BILIRUBIN,DIRECT 0.3 MG/DL (0.0-0.3); BILIRUBIN,TOTAL 1.1 MG/DL (0.2-1.0); CALCIUM 7.7 MG/DL (8.5-10.1); CREATININE 2.7 MG/DL (0.55-1.30); POTASSIUM 3.9 MMOL/L (3.5-5.1)
[2020-07-06 08:00] VITALS: BP 122/65
--- NOTE | 2020-07-06 08:21 | General Progress Note ---
Subjective ROS Limited/Unobtainable: No Allergies: Coded Allergies: No Known Allergies (Unverified , 06/27/20) Objective Last 24 Hour Vital Signs Date Time Temp Pulse Resp B/P (MAP) Pulse Ox O2 Delivery O2 Flow Rate FiO2 07/06/20 04:18 98.6 120 26 104/49 (67) 90 07/06/20 00:00 97.9 112 24 133/54 (80) 92 07/05/20 21:00 107/67 07/05/20 21:00 Non-Rebreather 15.0 07/05/20 20:00 98.2 110 24 107/67 (80) 94 07/05/20 16:00 99.5 111 20 138/78 (98) 93 07/05/20 16:00 115 07/05/20 12:00 98 07/05/20 12:00 100.0 98 20 125/68 (87) 99 07/05/20 09:18 92 Non-Rebreather 15.0 100 07/05/20 09:00 Non-Rebreather 15.0 07/05/20 09:00 101/60 Intake and Output 07/05/20 07/06/20 19:00 07:00 Intake Total 800 ml 510.000 ml Output Total 900 ml 800 ml Balance -100 ml -290.000 ml Intake Oral 150 ml IV Total 650 ml 510.000 ml Output Urine Total 900 ml 800 ml Laboratory Tests 07/05/20 11:33: POC Whole Blood Glucose 246H 07/05/20 15:42: POC Whole Blood Glucose 380H 07/05/20 16:55: Arterial Blood pH 7.437, Arterial Blood Partial Pressure CO2 38.7, Arterial Blood Partial Pressure O2 48.5*L, Arterial Blood HCO3 25.5, Arterial Blood Oxygen Saturation 85.5*L, Arterial Blood Base Excess 1.4, Robert Test Positive 07/05/20 17:00: Random Vancomycin Level 8.2 07/05/20 21:44: POC Whole Blood Glucose [Pending] 07/06/20 04:43: POC Whole Blood Glucose 135H 07/06/20 06:50: White Blood Count 14.5H, Red Blood Count 4.52L, Hemoglobin 11.8L, Hematocrit 36.9L, Mean Corpuscular Volume 82, Mean Corpuscular Hemoglobin 26.1L, Mean Corpuscular Hemoglobin Concent 32.0, Red Cell Distribution Width 15.8H, Platelet Count 143L, Mean Platelet Volume 10.1, Neutrophils (%) (Auto) 81.6H, Lymphocytes (%) (Auto) 8.8L, Monocytes (%) (Auto) 8.8, Eosinophils (%) (Auto) 0.0, Basophils (%) (Auto) 0.8, Sodium Level 145, Potassium Level 3.9, Chloride Level 108H, Carbon Dioxide Level 25, Anion Gap 12, Blood Urea Nitrogen 41H, Creatinine 2.7H, Estimat Glomerular Filtration Rate 24.3, Glucose Level 125#H, Calcium Level 7.7L, Total Bilirubin 1.1H, Direct Bilirubin 0.3, Aspartate Amino Transf (AST/SGOT) 39H, Alanine Aminotransferase (ALT/SGPT) 17, Alkaline Phosphatase 88, Total Protein 6.1L, Albumin 2.0L, Globulin 4.1, Albumin/Globulin Ratio 0.5L Height (Feet): 6 Height (Inches): 2.00 Weight (Pounds): 201 General Appearance: no apparent distress EENT: normal ENT inspection Neck: supple Cardiovascular: normal rate Respiratory/Chest: decreased breath sounds Abdomen: normal bowel sounds, non tender, soft Extremities: non-tender Assessment/Plan Assessment/Plan: 1. Diabetes. 2. GI bleed. 3. Diabetic foot wounds. 4. Renal insufficiency with creatinine of 2.1. 5. Hypoalbuminemia with albumin of 2.2. 6. Loss of appetite. 7. UTI. 8. COVID positive pneumonia. 9. DKA. 10. Hypertension. 11. Elevated troponin, most probably secondary to renal insufficiency. PLAN: At this time, given the stable hemoglobin of 13 and active COVID infection, we are going to hold off GI procedures. Currently on PPI and famotidine, which we will continue. Monitor hemoglobin and hematocrit, transfuse as needed. Marinol 2.5 mg p.o. twice a for appetite stimulant monitor po intake We will consider GI procedures if absolutely needed. Fredy Partida MD Jul 06, 2020 08:21
[2020-07-06] MEDS: dexAMETHasone 10mg/ml Inj IV SCH (08:37)
[2020-07-06] MEDS: Losartan 50mg tab ORAL SCH (08:38)
[2020-07-06] MEDS: Dronabinol 2.5mg Cap ORAL SCH (08:38)
[2020-07-06] MEDS: Aspirin Baby 81mg ORAL SCH (08:38)
[2020-07-06] MEDS: Ascorbic Acid 500mg tab ORAL SCH (08:38)
[2020-07-06] MEDS: Pantoprazole Inj IVP SCH (08:38)
--- NOTE | 2020-07-06 09:53 | Cardiology Progress Note ---
Subjective DATE OF SERVICE: Jul 06, 2020 Still on O2 suppl; looks congested and fatigued IVF ongoing - Free water deficit decreasing and renal fxn slightly stabilized. CXR (07/03) Bilateral infiltrates worse on one side, slightly better on other side. Objective Last 24 Hour Vital Signs Date Time Temp Pulse Resp B/P (MAP) Pulse Ox O2 Delivery O2 Flow Rate FiO2 07/06/20 08:38 122/65 07/06/20 08:00 97.5 113 21 122/65 (84) 92 07/06/20 04:18 98.6 120 26 104/49 (67) 90 07/06/20 00:00 97.9 112 24 133/54 (80) 92 07/05/20 21:00 107/67 07/05/20 21:00 Non-Rebreather 15.0 07/05/20 20:00 98.2 110 24 107/67 (80) 94 07/05/20 16:00 99.5 111 20 138/78 (98) 93 07/05/20 16:00 115 07/05/20 12:00 98 07/05/20 12:00 100.0 98 20 125/68 (87) 99 ROS: unable to obtain HEENT: normal ENT inspection RHYTHM: NSR, ST LUNGS: bilateral rhonchi CARDIAC: normal rate, regular rhythm, normal S1 and S2 ABDOMEN: normal bowel sounds, soft, no organomegaly EXTREMITIES: non-tender, trace edema Laboratory Tests Test 07/05/20 11:33 07/05/20 15:42 07/05/20 16:55 07/05/20 17:00 POC Whole Blood Glucose 246 MG/DL (74-106) H 380 MG/DL (74-106) H Arterial Blood pH 7.437 (7.350-7.450) Arterial Blood Partial Pressure CO2 38.7 mmHg (35.0-45.0) Arterial Blood Partial Pressure O2 48.5 mmHg (75.0-100.0) Arterial Blood HCO3 25.5 mmol/L (22.0-26.0) Arterial Blood Oxygen Saturation 85.5 % (95-100) *L Arterial Blood Base Excess 1.4 (-2-2) Robert Test Positive Random Vancomycin Level 8.2 ug/mL Test 07/05/20 21:44 07/06/20 04:43 1/12/21 06:50 POC Whole Blood Glucose Pending 135 MG/DL (74-106) H White Blood Count 14.5 K/UL (4.8-10.8) H Red Blood Count 4.52 M/UL (4.70-6.10) L Hemoglobin 11.8 G/DL (14.2-18.0) L Hematocrit 36.9 % (42.0-52.0) L Mean Corpuscular Volume 82 FL (80-99) Mean Corpuscular Hemoglobin 26.1 PG (27.0-31.0) L Mean Corpuscular Hemoglobin Concent 32.0 G/DL (32.0-36.0) Red Cell Distribution Width 15.8 % (11.6-14.8) H Platelet Count 143 K/UL (150-450) L Mean Platelet Volume 10.1 FL (6.5-10.1) Neutrophils (%) (Auto) 81.6 % (45.0-75.0) H Lymphocytes (%) (Auto) 8.8 % (20.0-45.0) L Monocytes (%) (Auto) 8.8 % (1.0-10.0) Eosinophils (%) (Auto) 0.0 % (0.0-3.0) Basophils (%) (Auto) 0.8 % (0.0-2.0) Sodium Level 145 MMOL/L (136-145) Potassium Level 3.9 MMOL/L (3.5-5.1) Chloride Level 108 MMOL/L (98-107) H Carbon Dioxide Level 25 MMOL/L (21-32) Anion Gap 12 mmol/L (5-15) Blood Urea Nitrogen 41 mg/dL (7-18) H Creatinine 2.7 MG/DL (0.55-1.30) H Estimat Glomerular Filtration Rate 24.3 mL/min (>60) Glucose Level 125 MG/DL (74-106) #H Calcium Level 7.7 MG/DL (8.5-10.1) L Total Bilirubin 1.1 MG/DL (0.2-1.0) H Direct Bilirubin 0.3 MG/DL (0.0-0.3) Aspartate Amino Transf (AST/SGOT) 39 U/L (15-37) H Alanine Aminotransferase (ALT/SGPT) 17 U/L (12-78) Alkaline Phosphatase 88 U/L (46-116) Total Protein 6.1 G/DL (6.4-8.2) L Albumin 2.0 G/DL (3.4-5.0) L Globulin 4.1 g/dL Albumin/Globulin Ratio 0.5 (1.0-2.7) L Assessment/Plan Assessment/Plan Covid 19 PNA Hypoxia CXR essentially unimproved Toxic and metabolic encephalopathies DKA dehydration/hypernatremia resolving Acute coronary insuff Continue isolation Plan of care/orders updated and discussed with Dr Lara Remains high risk West Rodriguez MD Jul 06, 2020 09:53
--- NOTE | 2020-07-06 10:34 | Pulmonology Progress Note ---
Subjective ROS Limited/Unobtainable: No Allergies: Coded Allergies: No Known Allergies (Unverified , 06/27/20) Subjective now on NRM, removing frequently started on REM 07/04 no fevers , but leukocytosis this am CXR 07/05 unchanged Objective Last 24 Hour Vital Signs Date Time Temp Pulse Resp B/P (MAP) Pulse Ox O2 Delivery O2 Flow Rate FiO2 07/06/20 09:00 Non-Rebreather 15.0 07/06/20 08:38 122/65 07/06/20 08:00 97.5 113 21 122/65 (84) 92 07/06/20 04:18 98.6 120 26 104/49 (67) 90 07/06/20 00:00 97.9 112 24 133/54 (80) 92 07/05/20 21:00 107/67 07/05/20 21:00 Non-Rebreather 15.0 07/05/20 20:00 98.2 110 24 107/67 (80) 94 07/05/20 16:00 99.5 111 20 138/78 (98) 93 07/05/20 16:00 115 07/05/20 12:00 98 07/05/20 12:00 100.0 98 20 125/68 (87) 99 Intake and Output 07/05/20 07/06/20 19:00 07:00 Intake Total 800 ml 510.000 ml Output Total 900 ml 800 ml Balance -100 ml -290.000 ml Intake Oral 150 ml IV Total 650 ml 510.000 ml Output Urine Total 900 ml 800 ml Objective General Appearance: no apparent distress, alert , weak Lines, tubes and drains: peripheral HEENT: normocephalic, atraumatic, anicteric, mucous membranes moist, O2 NRM Neck: non-tender, normal alignment, supple Respiratory/Chest: few isolated rhonchi Cardiovascular/Chest: regular SR Abdomen: normal bowel sounds, non tender, soft Extremities: normal range of motion, no calf tenderness, normal capillary refill Skin Exam: L foot ulcer Neurologic: no motor/sensory deficits, alert, weak Musculoskeletal: normal muscle bulk Laboratory Tests 07/05/20 11:33: POC Whole Blood Glucose 246H 07/05/20 15:42: POC Whole Blood Glucose 380H 07/05/20 16:55: Arterial Blood pH 7.437, Arterial Blood Partial Pressure CO2 38.7, Arterial Blood Partial Pressure O2 48.5*L, Arterial Blood HCO3 25.5, Arterial Blood Oxygen Saturation 85.5*L, Arterial Blood Base Excess 1.4, Robert Test Positive 07/05/20 17:00: Random Vancomycin Level 8.2 07/05/20 21:44: POC Whole Blood Glucose [Pending] 07/06/20 04:43: POC Whole Blood Glucose 135H 07/06/20 06:50: White Blood Count 14.5H, Red Blood Count 4.52L, Hemoglobin 11.8L, Hematocrit 36.9L, Mean Corpuscular Volume 82, Mean Corpuscular Hemoglobin 26.1L, Mean Corpuscular Hemoglobin Concent 32.0, Red Cell Distribution Width 15.8H, Platelet Count 143L, Mean Platelet Volume 10.1, Neutrophils (%) (Auto) 81.6H, Lymphocytes (%) (Auto) 8.8L, Monocytes (%) (Auto) 8.8, Eosinophils (%) (Auto) 0.0, Basophils (%) (Auto) 0.8, Sodium Level 145, Potassium Level 3.9, Chloride Level 108H, Carbon Dioxide Level 25, Anion Gap 12, Blood Urea Nitrogen 41H, Creatinine 2.7H, Estimat Glomerular Filtration Rate 24.3, Glucose Level 125#H, Calcium Level 7.7L, Total Bilirubin 1.1H, Direct Bilirubin 0.3, Aspartate Amino Transf (AST/SGOT) 39H, Alanine Aminotransferase (ALT/SGPT) 17, Alkaline Phosphatase 88, Total Protein 6.1L, Albumin 2.0L, Globulin 4.1, Albumin/Globulin Ratio 0.5L Current Medications Medications (Trade) Dose Ordered Sig/Td Route PRN Reason Start Time Stop Time Status Last Admin Dose Admin Acetaminophen (Tylenol) 650 mg Q4H PRN ORAL Mild Pain (Pain Scale 1-3) 06/27/20 13:30 07/27/20 13:29 06/27/20 21:11 Acetaminophen (Tylenol) 650 mg Q4H PRN ORAL fever 06/27/20 13:30 07/27/20 13:29 Albuterol Sulfate (Proventil MDI) 2 puff Q4H PRN INH Shortness of Breath 06/27/20 13:45 09/25/20 13:44 Ascorbic Acid (Vitamin C) 250 mg TWICE A DAY ORAL 07/02/20 18:00 08/01/20 17:59 07/06/20 08:38 Aspirin (ASA) 81 mg DAILY ORAL 06/27/20 13:30 08/11/20 13:29 07/06/20 08:38 Chlorhexidine Gluconate (Rosario-Hex 2%) 1 applic DAILY@2000 TOPIC 06/30/20 20:00 09/28/20 19:59 07/02/20 20:47 Dexamethasone Sodium Phosphate (Decadron 10mg/ ml Inj) 6 mg DAILY IV 06/30/20 12:00 07/09/20 12:00 07/06/20 08:37 Dextrose (Dextrose 50%) 25 ml Q30M PRN IV Hypoglycemia 06/27/20 13:30 09/25/20 13:29 Dextrose (Dextrose 50%) 50 ml Q30M PRN IV Hypoglycemia 06/27/20 13:30 09/25/20 13:29 Dronabinol (Marinol) 2.5 mg BID ORAL 07/02/20 18:00 09/30/20 17:59 07/06/20 08:38 Famotidine (Pepcid I.v.) 20 mg Q12HR IVP 06/30/20 12:00 07/30/20 11:59 07/06/20 08:37 Insulin Aspart (NovoLOG) BEFORE MEALS AND HS SUBQ 06/27/20 16:30 09/25/20 16:29 07/05/20 16:55 Insulin Aspart (NovoLOG) 25 units NOVOTIAC SUBQ 07/05/20 16:50 10/03/20 16:49 07/05/20 16:56 Insulin Detemir (Levemir) 45 units QHS SUBQ 07/05/20 21:00 10/03/20 20:59 Losartan Potassium (Cozaar) 50 mg EVERY 12 HOURS ORAL 06/30/20 21:15 07/30/20 21:14 07/06/20 08:38 Magnesium Hydroxide (Mom) 30 ml HSPRN PRN ORAL Constipation 06/27/20 13:30 07/27/20 13:29 Multivitamins (Multivitamins) 1 tab DAILY ORAL 07/03/20 09:00 08/02/20 08:59 07/06/20 08:37 Nitroglycerin (Ntg) 0.4 mg Q5M PRN SL Prn Chest Pain 06/27/20 13:30 07/27/20 13:29 Ondansetron HCl (Zofran) 4 mg Q6H PRN IVP Nausea & Vomiting 06/27/20 13:30 07/27/20 13:29 06/30/20 17:50 Pantoprazole (Protonix) 40 mg EVERY 12 HOURS IVP 07/01/20 21:00 07/31/20 20:59 07/06/20 08:38 Piperacillin Sod/ Tazobactam Sod 3.375 gm/Dextrose 100 ml @ 25 mls/hr Q8H IVPB 07/05/20 04:00 07/12/20 03:59 07/06/20 02:58 Remdesivir 100 mg/ Sodium Chloride 250 ml @ 250 mls/hr Q24H IV 07/05/20 16:00 07/08/20 16:59 07/05/20 16:42 Sodium 1,000 ml @ 30 mls/hr Q24H IV 06/29/20 10:00 07/29/20 09:59 07/05/20 12:39 Tamsulosin HCl (Flomax) 0.8 mg BEDTIME ORAL 06/30/20 21:00 07/30/20 20:59 07/05/20 21:21 Vancomycin HCl 250 ml @ 166.667 mls/hr Q12H IVPB 07/05/20 18:00 07/10/20 17:59 07/06/20 04:55 Vancomycin HCl (Vanco pharmacy to dose) 1 ea DAILY PRN MISC Per rx protocol 07/04/20 00:00 08/03/20 00:00 Assessment/Plan Assessment/Plan ASSESSMENT COVID 19 Acute hypoxemic resp failure requiring NRM DKA-resolved Acute renal failure Hyperkalemia DM HTN Hypernatremia Elevated troponin, likely troponin leak 2 ARF PLAN OF CARE tele isolation Date of sx onset: 4 days ago prior to ED presentation Positive test: 06/27/20 O2 -NRM -> try to wean titrate to keep sat > 92% HFA DEX Day # 7 ( 06/30 REM D#3 (07/04- )- per ID recs given clinical worsening despite renal failure a/c LMWH venous Duplex BLE 07/02 NGT D dimer 0,82, LDH 561, ferritin >2000 Trend CRP 62.3- 111.7-33.3-20.4 abx as per ID recs CXR 07/05 Bilateral infiltrates unchanged hydration and BS management - per primary anion gap closed ; off insulin gtt BS management per primary HgA1c -10.7, not at goal hypoglycemia protocol diabetic diet and diabetic teaching creat trending down, hyper K resolved 2 nd troponin mildly elevated likely troponin leak 2 to ARF cardio follows monitor volumes and renal function fup with consultants recs X ray L foot noted FC case discussed and evaluated by supervising physician Sophia Musa NP Jul 06, 2020 10:34
[2020-07-06 11:48] VITALS: BP 114/71
[2020-07-06] MEDS: 1/2NS w/KCl 20mEq 1000ml 1,000 ML IV SCH (11:55)
--- NOTE | 2020-07-06 13:36 | NUR ---
RD ASSESSMENT & RECOMMENDATIONS SEE CARE ACTIVITY FOR COMPLETE ASSESSMENT DAILY ESTIMATED NEEDS: Needs based on DM, wound, pulmonary 91.4kg 25-30 kcals/kg 3321-5220 total kcals 1.25-2 g protein/kg 114-183 g total protein 25-30 mL/kg 5785-1603 total fluid mLs NUTRITION DIAGNOSIS: Increased pro needs needs r/t wound healing as evidenced by full thickness wounds @ plantar R 1st Metatarsal and plantar L Foot, adm w. A1C 10.7, BG 697, uglu 4+. CURRENT DIET: CCHO LOW ms finely chopped PO DIET RECOMMENDATIONS: CCHO MED + DOUBLE PROTEIN PORTIONS ENTERAL NUTRITION RECOMMENDATIONS: If part of POC, rec non oral feeds to meet est kcal/pro needs -> poor PO intake, all <25% since adm, day 9 today ADDITIONAL RECOMMENDATIONS: 1) Glucerna 1 tetra TID w/ meals 2) Wound care: Add MARIO BID, Vit C 500mg BID, MVI w/ min qdaily 3) Non oral feeds w/ continued poor PO <25% PO intake since adm, now on NRB 4) Maintain accurate bed scale weights 5) Monitor closely for hypoglycemia w/ poor PO and increased insulin regime
--- NOTE | 2020-07-06 13:57 | General Progress Note ---
Subjective ROS Limited/Unobtainable: Yes Allergies: Coded Allergies: No Known Allergies (Unverified , 06/27/20) Objective Last 24 Hour Vital Signs Date Time Temp Pulse Resp B/P (MAP) Pulse Ox O2 Delivery O2 Flow Rate FiO2 07/06/20 11:48 98.9 104 20 114/71 (85) 94 07/06/20 09:00 Non-Rebreather 15.0 07/06/20 08:38 122/65 07/06/20 08:00 97.5 113 21 122/65 (84) 92 07/06/20 04:18 98.6 120 26 104/49 (67) 90 07/06/20 00:00 97.9 112 24 133/54 (80) 92 07/05/20 21:00 107/67 07/05/20 21:00 Non-Rebreather 15.0 07/05/20 20:00 98.2 110 24 107/67 (80) 94 07/05/20 16:00 99.5 111 20 138/78 (98) 93 07/05/20 16:00 115 Intake and Output 07/05/20 07/06/20 19:00 07:00 Intake Total 800 ml 510.000 ml Output Total 900 ml 800 ml Balance -100 ml -290.000 ml Intake Oral 150 ml IV Total 650 ml 510.000 ml Output Urine Total 900 ml 800 ml Laboratory Tests 07/05/20 15:42: POC Whole Blood Glucose 380H 07/05/20 16:55: Arterial Blood pH 7.437, Arterial Blood Partial Pressure CO2 38.7, Arterial Blood Partial Pressure O2 48.5*L, Arterial Blood HCO3 25.5, Arterial Blood Oxygen Saturation 85.5*L, Arterial Blood Base Excess 1.4, Robert Test Positive 07/05/20 17:00: Random Vancomycin Level 8.2 07/05/20 21:44: POC Whole Blood Glucose [Pending] 07/06/20 04:43: POC Whole Blood Glucose 135H 07/06/20 06:50: White Blood Count 14.5H, Red Blood Count 4.52L, Hemoglobin 11.8L, Hematocrit 36.9L, Mean Corpuscular Volume 82, Mean Corpuscular Hemoglobin 26.1L, Mean Corpuscular Hemoglobin Concent 32.0, Red Cell Distribution Width 15.8H, Platelet Count 143L, Mean Platelet Volume 10.1, Neutrophils (%) (Auto) 81.6H, Lymphocytes (%) (Auto) 8.8L, Monocytes (%) (Auto) 8.8, Eosinophils (%) (Auto) 0.0, Basophils (%) (Auto) 0.8, Sodium Level 145, Potassium Level 3.9, Chloride Level 108H, Carbon Dioxide Level 25, Anion Gap 12, Blood Urea Nitrogen 41H, Creatinine 2.7H, Estimat Glomerular Filtration Rate 24.3, Glucose Level 125#H, Calcium Level 7.7L, Total Bilirubin 1.1H, Direct Bilirubin 0.3, Aspartate Amino Transf (AST/SGOT) 39H, Alanine Aminotransferase (ALT/SGPT) 17, Alkaline Phosphatase 88, Total Protein 6.1L, Albumin 2.0L, Globulin 4.1, Albumin/Globulin Ratio 0.5L Height (Feet): 6 Height (Inches): 2.00 Weight (Pounds): 201 General Appearance: alert, mild distress EENT: normal ENT inspection Neck: normal alignment Cardiovascular: regular rhythm Respiratory/Chest: accessory muscle use Abdomen: non tender Edema: trace edema 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 II-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 grossly normal Skin: other - foot ulcers Assessment/Plan Problem List: (1) DKA (diabetic ketoacidoses) ICD Codes: E11.10 - Type 2 diabetes mellitus with ketoacidosis without coma SNOMED: 48570850, 261294652 (2) 2019 novel coronavirus detected ICD Codes: U07.1 - COVID-19 SNOMED: 2710266153642172 (3) Dysphagia ICD Codes: R13.10 - Dysphagia, unspecified SNOMED: 58586362, 809953954 (4) Dehydration ICD Codes: E86.0 - Dehydration SNOMED: 12892717 (5) Hypernatremia ICD Codes: E87.0 - Hyperosmolality and hypernatremia SNOMED: 163728141 (6) Metabolic encephalopathy ICD Codes: G93.41 - Metabolic encephalopathy SNOMED: 73960827 (7) Diabetic foot ulcer ICD Codes: E11.621 - Type 2 diabetes mellitus with foot ulcer; L97.509 - Non- pressure chronic ulcer of other part of unspecified foot with unspecified severity SNOMED: 63145870, 621417179 (8) Urinary retention due to benign prostatic hyperplasia ICD Codes: N40.1 - Benign prostatic hyperplasia with lower urinary tract symptoms; R33.8 - Other retention of urine SNOMED: 964962710, 850488701, 814722859097499 (9) CKD (chronic kidney disease) stage 4, GFR 15-29 ml/min ICD Codes: N18.4 - Chronic kidney disease, stage 4 (severe) SNOMED: 643602853 Assessment/Plan: hydration, hypotonic iv, adjusted, increase novolog and levemir done , monitor lab and mental status, wound care , puree diet as missing denture trying to reach family Kimberli [phone] reached 06/30, discussed high risk and code status worsening hypoxemia gi bleed with stable Hb so far on PPI, ,desat when nonrebreather removed, high risk full code per family Darrian Lara MD Jul 06, 2020 13:57
[2020-07-06 16:37] VITALS: BP 0/0
--- NOTE | 2020-07-06 16:39 | Diagnostic Imaging Report ---
Indication: Abnormal renal function tests Technique: Grayscale and duplex images of the kidneys, retroperitoneum, and bladder were obtained. Comparison: none Findings: Right kidney measures 9.6 cm in length. Left kidney measures 10.6 cm in length. Both kidneys demonstrate normal echogenicity. No hydronephrosis. No focal abnormality. Normal inferior vena cava. Bladder is empty, contains a Giles catheter. Impression: negative.
--- NOTE | 2020-07-06 17:26 | NUR ---
CODE BLUE: See Code sheet which remains on paper.
[2020-07-06] MEDS ORDERED: Sodium Bicarbonate 8.4% 50ml Inj ONE (18:10)
[2020-07-06] MEDS ORDERED: D5 1/2NS 1000ml IV ONE (18:10)
[2020-07-06] MEDS ORDERED: Amiodarone 150mg/3ml Amp ONE (18:10)
--- NOTE | 2020-07-06 19:38 | Emergency Room Report ---
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 I feel this is a highly complex case requiring extensive working including EKG/Rhythm strip, Xray/CT/US, Blood/urine lab work, repeat exams while in ED, and administration of strong opiates/narcotics for pain control, admission to hospital or close patient follow up. Total time: 30 min bedside evaluation and treatment excludes procedures (EKG). Reason for critical care: Cardiac arrest respiratory distress Possible complications: hypotension, hypertension, AL, shock, arrhythmias, metabolic acidosis, end organ damage, respiratory failure. Interventions: ACLS, chest compressions, intubation defibrillation Course: Patient in asystole. Patient intubated. After multiple rounds of compressions and defibrillation patient regained pulse. Patient shortly lost pulses after. After multiple rounds of medication and compressions patient remains in PEA. Prognosis poor. Resuscitative efforts terminated. Patient expires Consultations: nursing staff, EMS, family Performed by: Dr Rivas Tolerated well condition = j. because of unstable vital signs this patient had a condition that could potentially threaten life or limb. I feel this is a critical patient who required my full attention while patient was considered critical. Total Critical Care Time excluding procedures was greater than 35 minutes Cardioversion Cardioversion: Consent: Emergent Indication: Other - Vfib Type: Desynchonis Response: Sinus Attempts: Other Patient Tolerated: Poor Complications: Other - patient CPR/Code Blue CPR/Code Blue Narrative See CODE BLUE sheet for full narrative Intubation Intubation : Consent: Verbal Intubation Method: orotracheal Tube Size (cm): 7.5 Breath Sounds after Intubation: equal Intubation Complications: no complications Post Intubation Xray: No - patient Attempts: One Patient Tolerated: Well Complications: None Medical Decision Making Diagnostic Impression: Primary Impression: DKA (diabetic ketoacidoses) Additional Impression: 2019 novel coronavirus detected ER Course I was called to this CODE BLUE on 4 E. Patient admitted for DKA and Covid positive. Had been seen awake and alert about 20 minutes prior. Was found unresponsive. Rhythm asystole. Chest compressions started. Patient intubated. After multiple rounds of medication and defibrillation patient regained pulse. Patient was to be transferred to ICU when he lost pulse again. After multiple rounds of medication defibrillation patient remains in asystole. Prognosis poor. Resuscitative efforts terminated. Patient expires Last Vital Signs Date Time Temp Pulse Resp B/P (MAP) Pulse Ox O2 Delivery O2 Flow Rate FiO2 07/06/20 16:37 0/0 (0) 07/06/20 11:48 98.9 104 20 94 07/06/20 09:00 Non-Rebreather 15.0 07/05/20 09:18 100 Status: worsened Disposition: Condition: Referrals: NON PHYSICIAN (PCP) Kaden Rivas MD Jul 06, 2020 19:38
--- NOTE | 2020-07-06 21:20 | Surgery Progress Note ---
Surgery Progress Note Subjective Additional Comments late entry patient seen this AM< on face mask downgraded from tele requiring oxygen but states he is feeling okay as time of this note i have been informed that patient declined and passed Objective Last 24 Hour Vital Signs Date Time Temp Pulse Resp B/P (MAP) Pulse Ox O2 Delivery O2 Flow Rate FiO2 07/06/20 16:37 0/0 (0) 07/06/20 11:48 98.9 104 20 114/71 (85) 94 07/06/20 09:00 Non-Rebreather 15.0 07/06/20 08:38 122/65 07/06/20 08:00 97.5 113 21 122/65 (84) 92 07/06/20 04:18 98.6 120 26 104/49 (67) 90 07/06/20 00:00 97.9 112 24 133/54 (80) 92 I&O Intake and Output 07/05/20 07/06/20 19:00 07:00 Intake Total 800 ml 510.000 ml Output Total 900 ml 800 ml Balance -100 ml -290.000 ml Intake Oral 150 ml IV Total 650 ml 510.000 ml Output Urine Total 900 ml 800 ml Dressing: saturated Cardiovascular: RSR Respiratory: decreased breath sounds, other Abdomen: non-tender, present bowel sounds, non-distended Extremities: edema, no cyanosis, other Laboratory Tests Test 07/05/20 21:44 07/06/20 04:43 07/06/20 06:50 POC Whole Blood Glucose Pending 135 MG/DL (74-106) H White Blood Count 14.5 K/UL (4.8-10.8) H Red Blood Count 4.52 M/UL (4.70-6.10) L Hemoglobin 11.8 G/DL (14.2-18.0) L Hematocrit 36.9 % (42.0-52.0) L Mean Corpuscular Volume 82 FL (80-99) Mean Corpuscular Hemoglobin 26.1 PG (27.0-31.0) L Mean Corpuscular Hemoglobin Concent 32.0 G/DL (32.0-36.0) Red Cell Distribution Width 15.8 % (11.6-14.8) H Platelet Count 143 K/UL (150-450) L Mean Platelet Volume 10.1 FL (6.5-10.1) Neutrophils (%) (Auto) 81.6 % (45.0-75.0) H Lymphocytes (%) (Auto) 8.8 % (20.0-45.0) L Monocytes (%) (Auto) 8.8 % (1.0-10.0) Eosinophils (%) (Auto) 0.0 % (0.0-3.0) Basophils (%) (Auto) 0.8 % (0.0-2.0) Sodium Level 145 MMOL/L (136-145) Potassium Level 3.9 MMOL/L (3.5-5.1) Chloride Level 108 MMOL/L (98-107) H Carbon Dioxide Level 25 MMOL/L (21-32) Anion Gap 12 mmol/L (5-15) Blood Urea Nitrogen 41 mg/dL (7-18) H Creatinine 2.7 MG/DL (0.55-1.30) H Estimat Glomerular Filtration Rate 24.3 mL/min (>60) Glucose Level 125 MG/DL (74-106) #H Calcium Level 7.7 MG/DL (8.5-10.1) L Total Bilirubin 1.1 MG/DL (0.2-1.0) H Direct Bilirubin 0.3 MG/DL (0.0-0.3) Aspartate Amino Transf (AST/SGOT) 39 U/L (15-37) H Alanine Aminotransferase (ALT/SGPT) 17 U/L (12-78) Alkaline Phosphatase 88 U/L (46-116) Total Protein 6.1 G/DL (6.4-8.2) L Albumin 2.0 G/DL (3.4-5.0) L Globulin 4.1 g/dL Albumin/Globulin Ratio 0.5 (1.0-2.7) L Plan Problems: (1) 2019 novel coronavirus detected Assessment & Plan: as per pulm ID onput pcp (2) DKA (diabetic ketoacidoses) (3) Dehydration (4) Dysphagia (5) Hypernatremia (6) Metabolic encephalopathy (7) Diabetic foot ulcer Assessment & Plan: Pt presented on admission with Multiple Ulcers R and L Feet. Full thickness stage 4 Ulcer plantar R 1st Metatarsal. Base of wound mixed necrosis and slough. Bone is palpable(L)2.5cm x (W)1.8cm x (D)0.4cm.Thick- callused borders noted. No erythema, induration or fluctuance periwound. Full Thickness stage 4 Ulcer Plantar L Foot (L)9cm x (W)3.5cmx (D)1.1cm, Undermined borders clockwise 6-9o'clock with tunneling at 7 o'clock by 4cm. Base of wound is génesis. Wound is malodorous with moderate amt of green exudate. Edges are semi-detached, and callused with an area of necrosis noted distally along borders. Distally,but in close Proximity is an area of dry eschar (L)1.5cm x (W)3.8cm.No erythema, induration or fluctuance periwound.Rocker foot Bottom noted L foot. Both heels are dry and callused. No evidence of skin breakdown sacrum. Tx plan: Cleanse wound plantar R 1st Metatarsal with Saline. Apply TheraHoney. Apply Cavilon Skin Barrier Periwound. Cover with Optifoam Daily and prn. Cleanse wound Plantar L Foot with Saline.Apply Therahoney. Apply Maxosrb Extra(Calcium Alginate) Apply Cavilon periwound ,Cover with ABD pad and wrap with Kerlix Daily and prn. Apply Betadine to Necrotic area Plantar L foot Daily and prn. Apply Moisture Barrier Paste to Sacrum. Cover with Optifoam drsg. Change every 3 days and prn. Reposition at least every 2 hours or as tolerated. Elevate both lower extremities with pillows with both heels floated off mattress. DAILY ESTIMATED NEEDS: Needs based on DM, wound, pulmonary 91.4kg 25-30 kcals/kg 1707-9181 total kcals 1.25-2 g protein/kg 114-183 g total protein 25-30 mL/kg 2585-0717 total fluid mLs NUTRITION DIAGNOSIS: Increased pro needs needs r/t wound healing as evidenced by advanced diabetic L heel wound, full eval pending, adm w. A1C 10.7, BG 697, uglu 4+. CURRENT DIET: CCHO LOW ms finely chopped PO DIET RECOMMENDATIONS: CCHO MED + DOUBLE PROTEIN PORTIONS ENTERAL NUTRITION RECOMMENDATIONS: If part of POC, rec non oral feeds to meet est kcal/pro needs ADDITIONAL RECOMMENDATIONS: 1) Glucerna 1 tetra TID w/ meals 2) Wound care: Add MARIO BID, Vit C 500mg BID, MVI w/ min qdaily Pending MD dowd 3) Non oral feeds if pt is unble to tolerate oral po 4) Maintain accurate bed scale weights Bones/joints: Query subtle lucency at the medial distal proximal phalanx near the joint space. Mild hallux valgus of the first tarsometatarsal joint. No acute fracture. No dislocation. Soft tissues: Lucency in the soft tissue medial aspect of the first interphalangeal joint, query ulceration. No radiopaque foreign body. (8) Urinary retention due to benign prostatic hyperplasia Walter Can Jul 06, 2020 21:20
--- NOTE | 2020-07-08 09:15 | Discharge Summary ---
DATE OF ADMISSION: 06/27/2020 DATE OF EXPIRATION: 07/07/2020 PERTINENT HISTORY: The patient was admitted with diabetic ketoacidosis and COVID-19 positive. He was a poor historian. The patient's initial x-ray showed infiltrates and atelectasis. PERTINENT PHYSICAL FINDINGS: HEENT: . LUNGS: Clear. HEART: Irregular rhythm and tachycardic. ABDOMEN: Soft. EXTREMITIES: No edema. SKIN: Showed ulcers in the feet. COURSE IN THE HOSPITAL: The patient had diabetic ketoacidosis, which was treated with fluids and insulin and the DKA improved. His glucose remained labile and needed frequent adjustments of his insulin. With the COVID-19, he developed increasing dyspnea and required increasing oxygen requirement. He was seen by Pulmonary and Infectious Disease consultants. The patient had progressive dyspnea and required high-flow oxygen. He developed respiratory distress. He was seen by Pulmonary Medicine and seen by Cardiology by . . He had a sudden cardiopulmonary arrest and despite all efforts the patient . Also, with heme-positive stools and . FINAL DIAGNOSES: 1. COVID-19 pneumonia. 2. Diabetic ketoacidosis. 3. Dehydration. 4. Hypernatremia. 5. Metabolic encephalopathy. 6. Diabetic foot ulcers. 7. Urinary retention due to BPH. 8. Chronic kidney disease, stage 4. 9. Cardiopulmonary arrest. 10. Coronary ischemia. The patient and family was notified. Darrian Lara M.D. DR: JOSE JOB#: [id number] CC:
== END 2020-07-06 18:11 | disposition expired | DRG 177 ==
LOC: EDBD 10:31 → EMR 10:45 → 2E 11:30 → EDBEDREQSVC 12:20 → EDBEDREQ 12:20 → EDBEDREQSVC 13:11 → EDBEDREQ 06-28 09:17 → EDBEDREQSVC 06-28 09:17 → EDBEDREQ 06-28 12:01 → 2E 06-28 16:32 → 4E 07-03 04:31 → 2E 07-03 10:00 → 4E 07-05 19:39
PROC: 5A12012 Performance of Cardiac Output, Single, Manual (ICD-10-PCS; principal; 2020-07-06)
PROC: 0BH17EZ Insertion of Endotracheal Airway into Trachea, Via Natural or Artificial Opening (ICD-10-PCS; principal; 2020-07-06)
DX: U07.1 COVID-19 (principal); E11.10 Type 2 diabetes mellitus with ketoacidosis without coma; J12.82 Pneumonia due to coronavirus disease 2019; G93.41 Metabolic encephalopathy; N17.9 Acute kidney failure, unspecified; I24.8 Other forms of acute ischemic heart disease; N18.4 Chronic kidney disease, stage 4 (severe); K92.2 Gastrointestinal hemorrhage, unspecified; E87.0 Hyperosmolality and hypernatremia; N39.0 Urinary tract infection, site not specified; E86.0 Dehydration; E11.621 Type 2 diabetes mellitus with foot ulcer; E11.22 Type 2 diabetes mellitus with diabetic chronic kidney disease; I12.9 Hypertensive chronic kidney disease with stage 1 through stage 4 chronic kidney disease, or unspecified chronic kidney disease; E87.5 Hyperkalemia; D64.9 Anemia, unspecified; E86.1 Hypovolemia; N40.1 Benign prostatic hyperplasia with lower urinary tract symptoms; R33.8 Other retention of urine; R13.10 Dysphagia, unspecified
CPT/HCPCS: 36415; 71045; 76770; 80048; 80053; 80202; 81003; 82009; 82248; 82270; 82550; 82570; 82728; 82803; 82962; 83036; 83615; 83690; 83735; 83880; 84100; 84300; 84443; 84484; 85007; 85025; 85044; 85379; 85651; 86140; 86710; 86850; 86900; 86901; 87086; 92950; 93005; 93970; 94640; 96361; 96374; 99291; G0480; J0171; J1815; J2405; J3490; J7030; J7620; S5561; U0002